=== PATIENT | male | born 1945 | race Caucasian/White ===

== ENCOUNTER 2018-07-22 21:54 | Inpatient (IN) | payer OTHER ==
[2018-07-22] MEDS ORDERED: NS 1,000 ML IV ONE (22:36)
--- NOTE | 2018-07-22 22:36 | EDPHY ---
H & P Stated Complaint: near syncope while squatting on toilet. BGL 91 Time Seen by Provider: 07/22/18 22:35 HPI/ROS: HPI CHIEF COMPLAINT: Syncope HISTORY OF PRESENT ILLNESS: Patient is a 73-year-old male, who states that he is otherwise healthy, does not take any daily medications presents to the emergency room by EMS after he had a syncopal episode. Patient states he just got out of the shower he was standing there felt very lightheaded felt like he was going to pass out. He sat down on a stool and then fell backwards. Possibly fully passing out. He denies any chest pain or shortness of breath denies palpitations. Does complain of global weakness throughout. Past Medical History: BPH, longstanding history of smoking 1-3 packs per day for 50 years. Currently does not smoke. Past Surgical History: Tonsillectomy Social History: longstanding history of smoking 1-3 packs per day for 50 years. Currently does not smoke. Family History: Noncontributory ROS REVIEW OF SYSTEMS: 10 Systems were reviewed and negative with the exception of the elements mentioned in the history of present illness. Exam Constitutional elderly, nontoxic triage nursing summary reviewed, vital signs reviewed, awake/alert. Vital signs stable Eyes normal conjunctivae and sclera, EOMI, PERRLA. HENT normal inspection, atraumatic, moist mucus membranes, no epistaxis, neck supple/ no meningismus, no raccoon eyes. Respiratory clear to auscultation bilaterally, normal breath sounds, no respiratory distress, no wheezing. Cardiovascular rate normal, regular rhythm, no murmur, no edema, distal pulses normal. Gastrointestinal soft, non-tender, no rebound, no guarding, normal bowel sounds, no distension, no pulsatile mass. Genitourinary no CVA tenderness. Musculoskeletal no midline vertebral tenderness, full range of motion, no calf swelling, no tenderness of extremities, no meningismus, good pulses, neurovascularly intact. Skin pink, warm, & dry, no rash, skin atraumatic. Neurologic awake, alert and oriented x 3, AAOx3, moves all 4 extremities equally, motor intact, sensory intact, CN II-XII intact, normal cerebellar, normal vision, normal speech. Psychiatric normal mood/affect. Heme/Lymph/Immune no lymphadenopathy. Differential Diagnosis: Differential diagnosis includes but is not limited to: Vasovagal syncope, cardiac arrhythmia, orthostatic syncope, dehydration ACS, atypical chest pain, pneumothorax, pneumonia, pulmonary embolism, aortic dissection, congestive heart failure, tumor, musculoskeletal pain, esophageal pain, GERD, peptic ulcer disease, pancreatitis Medical Decision Making: Plan for this patient IV establishment IV fluid bolus , basic labs, EKG, case monitor, IV fluid bolus, and re-evaluate. Re-evaluation: EKG interpretation by me on record in [employer] system. Impression time of EKG 2207, normal sinus rhythm rate of [address] left [address] minimal ST depression lateral leads V4 V5 V6. No ST elevation. No old EKG to compare this to. The patient's labs reviewed shows anemia, additionally elevated BNP. Negative troponin. Patient's EKG is abnormal with ST depression V4 V5 V6. Chest x-ray reviewed no acute cardiopulmonary disease. Given the patient's age, anemia, abnormal EKG plan for hospital admission for syncope. Spoke with the hospitalist service they agree to admit Dr. Spears, Agrees to admit. Admit for Syncope. Patient updated agrees for admission. ADMIT FOR: Syncope, anemia, abnormal ekg. 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 - Social History Smoking Status: Former smoker Constitutional: Initial Vital Signs Temperature (C) 36.8 C 07/22/18 22:03 Heart Rate 98 07/22/18 22:03 Respiratory Rate 12 07/22/18 22:03 Blood Pressure 141/97 H 07/22/18 22:03 O2 Sat (%) 97 07/22/18 22:03 O2 Delivery Mode Room Air O2 (L/minute) 2 Allergies/Adverse Reactions: No Known Allergies Allergy (Verified 07/23/18 09:49) Home Medications: Medication Instructions Recorded Acetaminophen [Tylenol 325mg (*)] 325 mg PO Q6 PRN 07/23/18 Aspercreme With Lidocaine 4% 1 chuck TP TID 07/23/18 Aspirin [Aspirin 325 mg (*)] 325 mg PO DAILY PRN 07/23/18 Aspirin [Aspirin 81mg (*)] 81 mg PO DAILY 07/23/18 Ibuprofen [Motrin (*)] 200 mg PO DAILY PRN 07/23/18 Ranitidine HCl [Zantac] 150 mg PO DAILY 07/23/18 Medical Decision Making - Data Points Laboratory Results: Laboratory Results 07/24/18 03:30 07/24/18 03:30 Medications Given: Acetaminophen (Tylenol) 650 mg PO Q4HRS PRN PRN Reason: Pain, Mild/Fever, Can Take PO Stop: 01/19/19 00:33 Last Admin: 07/24/18 04:45 Dose: 650 mg Hydrocodone Bitart/Acetaminophen ([place] 5/325) 1 - 2 tab PO Q4HRS PRN PRN Reason: Pain, Moderate Stop: 08/03/18 10:29 Last Admin: 07/24/18 22:44 Dose: 1 tab Aspirin (Aspirin) 81 mg PO DAILY [facility] Stop: 01/20/19 08:59 Last Admin: 07/25/18 10:26 Dose: 81 mg Enoxaparin Sodium (Lovenox) 40 mg SC DAILY [facility] Stop: 01/19/19 08:59 Last Admin: 07/25/18 10:26 Dose: 40 mg Famotidine (Pepcid) 20 mg PO DAILY [facility] Stop: 01/20/19 08:59 Last Admin: 07/25/18 10:26 Dose: 20 mg Ferrous Sulfate (Ferrous Sulfate) 325 mg PO BID [facility] Stop: 01/20/19 08:59 Last Admin: 07/24/18 13:30 Dose: 325 mg Miscellaneous Medication (Aspercreme With Lidocaine 4% ) 1 chuck TP TID [facility] Stop: 01/19/19 21:59 Last Admin: 07/25/18 16:00 Dose: 1 chuck Senna/Docusate Sodium (Senokot-S) 1 - 2 tab PO BID [facility] PRN Reason: Protocol Stop: 01/19/19 20:59 Last Admin: 07/25/18 10:28 Dose: Not Given Discontinued Medications Aspirin Buffered (Aspirin Ec) 325 mg PO ONCALL ONE Stop: 07/24/18 06:01 Last Admin: 07/24/18 08:53 Dose: 325 mg Diazepam (Valium) 5 mg PO ONCALL ONE Stop: 07/24/18 06:01 Last Admin: 07/24/18 08:54 Dose: 5 mg Diphenhydramine HCl (Benadryl) 25 mg PO ONCALL ONE Stop: 07/24/18 06:01 Last Admin: 07/24/18 08:54 Dose: 25 mg Sodium Chloride (Ns) 1,000 mls @ 0 mls/hr IV EDNOW ONE; Wide Open PRN Reason: Protocol Stop: 07/22/18 22:37 Last Admin: 07/22/18 22:51 Dose: 1,000 mls Polyethylene Glycol/Electrolytes (Gavilyte - G) 4,000 ml PO ONCE ONE Stop: 07/25/18 17:01 Last Admin: 07/25/18 17:00 Dose: 4,000 ml Point of Care Test Results: Chemistry 07/22/18 22:32 POC Troponin I 0.01 ng/mL ng/mL (0.00-0.08) Departure - Departure Disposition: [facility] Inpatient Acute Clinical Impression: Abnormal EKG Syncope Qualifiers: Syncope type: vasovagal syncope Qualified Code(s): R55 - Syncope and collapse Anemia Qualifiers: Anemia type: unspecified type Qualified Code(s): D64.9 - Anemia, unspecified Condition: Fair
[2018-07-22 22:37] LABS: PLATELET COUNT 425 10^3/uL (150-400)
[2018-07-22 22:46] LABS: INR 1.16 (0.83-1.16); PROTIME(PATIENT) 14.3 SEC (12.0-15.0)
[2018-07-23] MEDS ORDERED: ONDANSETRON DISINTEGRATING 4 MG TAB PO PRN (00:34)
[2018-07-23] MEDS ORDERED: ONDANSETRON 4 MG/2 ML VIAL IVP PRN (00:34)
[2018-07-23] MEDS: ACETAMINOPHEN 325 MG TAB PO PRN ×4 (01:15→19:30)
--- NOTE | 2018-07-23 03:24 | PDGENHP ---
History and Physical - Chief Complaint Presyncope - History of Present Illness 73 yo M w/ minimal PMHx presents after pre-syncopal event. The patient got out of the shower and went into his closet. He felt lightheaded and had to go down to one knee. His check his blood pressure and noted systolic in the 60s so she called EMS. His SBP recovered to the 110s by the time EMS arrived 20 minutes later. He denies chest pain, SOB, or palpitations accompanying the event. He tells me he has had a sore throat for a few days. In addition, he has recently gotten over a severe bout of constipation with the help of Miralax. He does not take any medications on a regular basis. In the ED his work-up has been mostly unremarkable aside from markedly elevated BNP without clinical findings of heart failure and microcytic anemia. Case discussed with ED physician Dr. Elizalde; records reviewed and summarized above. History Information - Allergies/Home Medication List Allergies/Adverse Reactions: No Known Allergies Allergy (Unverified 07/23/18 00:34) I have personally reviewed and updated: family history, medical history - Past Medical History no pertinent PMH - Surgical History Additional surgical history: Tonsillectomy - Family History Positive for: cancer Additional family history: Parkinson's disease in his father - Social History Smoking Status: Former smoker Review of Systems Review of Systems: ROS: 10pt was reviewed & negative except for what was stated in HPI & below Physical Exam Physical Exam: Temp Pulse Resp BP Pulse Ox 36.8 C 109 H 13 151/95 H 83 L 07/23/18 01:41 07/23/18 01:41 07/23/18 01:41 07/23/18 01:41 07/23/18 02:53 Constitutional: no apparent distress, not in pain Eyes: PERRL, EOMI Ears, Nose, Mouth, Throat: moist mucous membranes, no oral mucosal ulcers Cardiovascular: regular rate and rhythym, systolic murmur Respiratory: no respiratory distress, clear to auscultation Gastrointestinal: normoactive bowel sounds, soft, non-tender abdomen Skin: warm, normal color Musculoskeletal: full muscle strength, no muscle tenderness Neurologic: AAOx3, CN II-XII Intact Psychiatric: interacting appropriately, not anxious Lab Data & Imaging Review 07/22/18 22:27 07/22/18 22:27 WBC 11.27 10^3/uL (3.80-9.50) H 07/22/18: RBC 4.13 10^6/uL (4.40-6.38) L 07/22/18: Hgb 9.7 g/dL (13.7-17.5) L 07/22/18: Hct 31.7 % (40.0-51.0) L 07/22/18: MCV 76.8 fL (81.5-99.8) L 07/22/18: MCH 23.5 pg (27.9-34.1) L 07/22/18: MCHC 30.6 g/dL (32.4-36.7) L 07/22/18: RDW 18.7 % (11.5-15.2) H 07/22/18: Plt Count 425 10^3/uL (150-400) H 07/22/18: MPV 9.7 fL (8.7-11.7) 07/22/18: Neut % (Auto) 81.6 % (39.3-74.2) H 07/22/18: Lymph % (Auto) 8.0 % (15.0-45.0) L 07/22/18: [place] % (Auto) 7.4 % (4.5-13.0) 07/22/18: Eos % (Auto) 2.1 % (0.6-7.6) 07/22/18: Baso % (Auto) 0.4 % (0.3-1.7) 07/22/18: Nucleat RBC Rel Count 0.0 % (0.0-0.2) 07/22/18: Absolute Neuts (auto) 9.19 10^3/uL (1.70-6.50) H 07/22/18: Absolute Lymphs (auto) 0.90 10^3/uL (1.00-3.00) L 07/22/18: Absolute Monos (auto) 0.83 10^3/uL (0.30-0.80) H 03/10/19 22:27 Absolute Eos (auto) 0.24 10^3/uL (0.03-0.40) 07/22/18 22: Absolute Basos (auto) 0.05 10^3/uL (0.02-0.10) 07/22/18 22: Absolute Nucleated RBC 0.00 10^3/uL (0-0.01) 07/22/18 22: Immature Gran % 0.5 % (0.0-1.1) 07/22/18: Immature Gran # 0.06 10^3/uL (0.00-0.10) 07/22/18 22: PT 14.3 SEC (12.0-15.0) 07/22/18: INR 1.16 (0.83-1.16) 07/22/18: APTT 22.9 SEC (23.0-38.0) L 07/22/18 22:27 Sodium 133 mEq/L (135-145) L 07/22/18 22:27 Potassium 4.3 mEq/L (3.5-5.2) 07/22/18 22:27 Chloride 97 mEq/L (97-110) 07/22/18 22: Carbon Dioxide 28 mEq/l (22-31) 07/22/18 22: Anion Gap 8 mEq/L (6-14) 07/22/18 22:27 BUN 15 mg/dL (7-23) 07/22/18 22:27 Creatinine 0.9 mg/dL (0.7-1.3) 07/22/18 22:27 Estimated GFR > 60 07/22/18 22:27 Glucose 106 mg/dL (70-100) H 07/22/18 22:27 Calcium 8.7 mg/dL (8.5-10.4) 07/22/18 22: Magnesium 2.3 mg/dL (1.6-2.3) 07/22/18 22:27 POC Troponin I 0.01 ng/mL (0.00-0.08) 07/22/18 22:32 NT-Pro-B Natriuret Pep 9840 pg/mL (0-450) H 07/22/18 22:27 Urine Color YELLOW 07/22/18 23:21 Urine Appearance HAZY 07/22/18 23:21 Urine pH 8.0 (5.0-7.5) H 07/22/18 23:21 Ur Specific [place] 1.009 (1.002-1.030) 07/22/18 23:21 Urine Protein NEGATIVE (NEGATIVE) 07/22/18 23:21 Urine Ketones NEGATIVE (NEGATIVE) 07/22/18 23:21 Urine Blood NEGATIVE (NEGATIVE) 07/22/18 23:21 Urine Nitrate NEGATIVE (NEGATIVE) 07/22/18 23:21 Urine Bilirubin NEGATIVE (NEGATIVE) 07/22/18 23:21 Urine Urobilinogen NEGATIVE EU (0.2-1.0) 07/22/18 23:21 Ur Leukocyte Esterase NEGATIVE (NEGATIVE) 07/22/18 23:21 Urine Glucose NEGATIVE (NEGATIVE) 07/22/18 23:21 Imaging Review: Imaging Impressions Chest X-Ray 07/22/18 22:36 Impression: Nothing acute identified. Visualized and Interpreted EKG results: Yes EKG Interpretation: Positive for: normal sinsus rhythm, ST depression (Lateral leads) Assessment & Plan Assessment: 73 yo M w/ minimal PMHx presents after presyncopal event, found to be anemic w/ elevated BNP. Plan: 1. Presyncope - Patient denies true LOC; SBP noted to be in the 60s by during episode. It is possible dehydration and anemia are contributing. In addition, he has had a sore throat the last few days, making viral infection a possibility. His BNP is markedly elevated but he does not appear clinically volume overloaded. - Admit to PCU for observation - Check orthostatic VS - S/p 1 L NS - Monitor on telemetry - Will check TTE noting elevated BNP - Respiratory PCR ordered 2. Elevated BNP - With no prior available for comparison. - TTE ordered 3. Microcytic anemia - Unclear chronicity, patient denies signs of bleeding. - Will check ferritin - May need GI evaluation for colonoscopy as an outpatient Diet - Regular Code - Full Ppx - LMWH Dispo - Admit under observation status
[2018-07-23 04:20] LABS: PLATELET COUNT 388 10^3/uL (150-400)
--- NOTE | 2018-07-23 09:39 | ASMTCMCOM ---
CM Note CM Note Notes: Patient admitted for syncopal episode (no LOC) and hypotension. He has been c/o a sore throat lately, not excluding the possibility of a viral infection. He will be monitored on tele and a TTE checked. He is normaly independent, lives with . No therapies ordered, and I don't anticipate any needs at d/c. Case Management available if this changes. Current CM Discharge plan: independent Date Signed: 07/23/2018 09:38 AM Electronically Signed By:Rachana Maurice RN
[2018-07-23] MEDS: ENOXAPARIN 40 MG/0.4 ML SYR SC SCH (09:47)
--- NOTE | 2018-07-23 11:04 | ECHO ---
[email or web address] [address] [address] Main: [phone] Echocardiography Examination Transthoracic Name: BARBARA VARELA MR#: [id number] Study Date: 07/23/2018 Study Time: 08:06 AM Date of : 1945 Age: 73 year(s) Height: 172.7 cm (68 in.) Weight: 63.5 kg (140 lb.) BSA: 1.76 m2 Gender: Male Examination: Echo Contrast: Image Quality: Adequate Rhythm: Heart Rate: BP: 144 mmHg/85 mmHg Indication: Syncope/elevated BNP Procedure Staff Referring Physician: Tower Cleaner: Ita Zamarripa RDCS Reading Physician: Christiano Ryan MD Requesting Provider: Indication: Syncope/elevated BNP Measurements Chambers AV/MV Label Value Normal Value Label Value Normal Value EF lower range (%) 35 % AV PGmax 3 mmHg EF upper range (%) 42 % AV PGmean 1 mmHg IVSd, 2D 0.6 cm (0.6cm - 1.1cm) AV Vmax, Caliper 0.8 m/s LVDd, 2D 6 cm (4.2cm - 5.9cm) MR Vena Contracta 0.3 cm LVDs, 2D 4.9 cm (2.1cm - 4cm) MV A Vmax 0.76 m/s LVEF, 2D 36 % (54% - 74%) MV E' lateral 0.07 m/s LVEF, BP 41 % (55% - 70%) MV E' mean 0.07 m/s LVEF, MOD2 45 % (55% - 70%) MV E' septal 0.07 m/s LVEF, MOD4 37 % (55% - 70%) MV E Vmax 0.65 m/s LVOTd 1.9 cm (1.9cm - 2.1cm) MV E/A 0.86 LVPWd, 2D 0.6 cm (0.6cm - 1cm) MV E/E' lateral 9.2 LA Area, A2C 22.1 cm2 (0cm2 - 20cm2) MV E/E' mean 9.29 LA Volume, A2C 70 ml (18ml - 58ml) MV E/E' septal 9.6 (0.45 - 1.25) LADs, 2D 4 cm (3cm - 4cm) TV/PV Additional Vessels Label Value Normal Value Label Value Normal Value RA Pressure 5 mmHg AoAsc 3.6 cm RVSP 36 mmHg AoRoot, MM 3.7 cm (2.2cm - 3.7cm) TR Pmax 31 mmHg TR Vmax 2.8 m/s Patient: BARBARA VARELA Study Date: 07/23/2018 Page 1 of 3 08:06 AM Conclusions The patient has changes consistent with an ischemic cariiomyopathy and reduced ejection fraction. A comparison echocardiogram is not on the [employer] system. A definite cause for the patient's syncope is not identified but ventricular tachydysrhythmia should be considered in the differential. LV anterior/inferoseptal and inferolateral appear akinetic. . Left Ventricle: Diastolic dysfunction is indeterminate.. Left ventricle is mildly dilated. EF range is estimated at 35 % - 42 %. Right Ventricle: Normal size right ventricle. Right ventricular systolic function is normal. Mitral Valve: Mild to moderate mitral regurgitation. Aortic Valve: There is no aortic stenosis. The aortic valve is trileaflet. Findings LV anterior/inferoseptal and inferolateral appear akinetic. . Left Ventricle: Diastolic dysfunction is indeterminate.. Left ventricle is mildly dilated. The ejection fraction, measured by Simpsons method, is 41 %. EF range is estimated at 35 % - 42 %. Left ventricle wall thickness is normal. IVS: The septum is intact. Right Ventricle: Normal size right ventricle. Right ventricular wall thickness is normal. Right ventricular systolic function is normal. Left Atrium: The left atrium is moderately dilated. IAS: Normal appearing atrial septum. Right Atrium: The right atrium is mildly dilated. Mitral Valve: Mitral valve appears structurally normal. Mild to moderate mitral regurgitation. No mitral valve stenosis. Aortic Valve: Aortic leaflets exhibit normal cuspal separation. No aortic valve regurgitation. There is no aortic stenosis. The aortic valve is trileaflet. Tricuspid Valve: Tricuspid valve leaflets are normal in appearance and function. Mild tricuspid regurgitation. No tricuspid valve stenosis. Right Ventricular systolic pressure is measured at 36 mmHg. Pulmonary artery pressure normal. Pulmonic Valve: Pulmonic leaflets exhibit normal cuspal separation. Trivial pulmonic valve regurgitation is present. There is no pulmonic valve stenosis. Aorta: The aorta is normal. The aortic root size in M-mode measures 3.7 cm. The ascending aorta measures 3.6 cm. Aorta Measurements AoRoot, MM is 3.7 cm. Pulmonary Artery: The pulmonary artery morphology appears normal. IVC: Patient: BARBARA VARELA Study Date: 07/23/2018 Page 2 of 3 08:06 AM The inferior vena cava is normal in size and course. Pericardium: No pericardial effusion. No pleural effusion present. Exam Details Procedure Ordered: Echo Procedure Status: Routine study Image Quality: Adequate Facility Location: Cardiac Echo 1 (No Signature Object) Patient: BARBARA VARELA Study Date: 07/23/2018 Page 3 of 3 08:06 AM [id number]
[2018-07-23] MEDS ORDERED: LACTULOSE 20 GM/30 ML UDCUP PO PRN (13:31)
[2018-07-23] MEDS ORDERED: MAGNESIUM HYDROXIDE 30 ML UDCUP PO PRN (13:31)
[2018-07-23] MEDS ORDERED: BISACODYL 10 MG SUPP PR PRN (13:31)
[2018-07-23] MEDS ORDERED: POLYETHYLENE GLYCOL 3350 17 GM PKT PO PRN (13:31)
--- NOTE | 2018-07-23 15:45 | HOSPPROG ---
Hospitalist Progress Note Assessment/Plan: 73 yo M w/ minimal PMHx presents after presyncopal event, found to be anemic w/ elevated BNP. Plan: 1. Presyncope - Patient denies true LOC; SBP noted to be in the 60s by during episode. It is possible dehydration and anemia are contributing. In addition, he has had a sore throat the last few days, making viral infection a possibility. His BNP is markedly elevated but he does not appear clinically volume overloaded. - Orthostatic VS this AM with no significant changes, this was s/p IVF though - Continue Monitor on telemetry - TTE performed today shows findings c/w ICM with LV anterior/inferoseptal akinesis - Cardiology consulted this AM for further evaluation and management, would like to w/u anemia prior to [facility], awiat further recommendations - Respiratory PCR negative on admission 2. Ischemic Cardiology - TTE and plan as above 3. Microcytic anemia - Unclear chronicity, patient denies signs of bleeding. - Ferritin low normal on admission, Iron and TIBC pending - Stool occult blood pending, if positive will consult GI for possible colonoscopy Diet - Regular Code - Full Ppx - LMWH Dispo - Pending clinical course Subjective: Patient reports no complaints this AM Objective: Vital Signs Temp Pulse Resp BP Pulse Ox 36.7 C 84 14 117/73 94 07/23/18 15:22 07/23/18 15:22 07/23/18 15:22 07/23/18 15:22 07/23/18 15:22 Microbiology 07/23/18 01:25 Respiratory Panel (PCR) - Final Nasal, Sinus - Tissue No Organism Detected By Pcr Laboratory Results 07/23/18 03:10 07/23/18 03:10 07/22/18 07/23/18 07/24/18 05:59 05:59 05:59 Intake Total 1250 200 Output Total 325 Balance 1250 -125 PT 14.3 SEC (12.0-15.0) 07/22/18 22:27 INR 1.16 (0.83-1.16) 07/22/18 22:27 - Physical Exam Constitutional: no apparent distress Eyes: PERRL Ears, Nose, Mouth, Throat: moist mucous membranes Cardiovascular: regular rate and rhythym Respiratory: no respiratory distress Gastrointestinal: soft, non-tender abdomen Skin: warm Musculoskeletal: full muscle strength Neurologic: AAOx3 Psychiatric: interacting appropriately ICD10 Worksheet Patient Problems: Problems Problem Status Onset Anemia Acute Syncope Acute
[2018-07-23] MEDS ORDERED: NITROGLYCERIN 0.4 MG BTL SL PRN (16:22)
[2018-07-23] MEDS ORDERED: TEMAZEPAM 15 MG CAP PO PRN (16:22)
--- NOTE | 2018-07-23 18:09 | GCON ---
[f rep st] CONSULTATION CARDIAC CONSULTATION DATE OF CONSULTATION: 07/23/2018 CHIEF COMPLAINT: Lightheadedness. HISTORY OF PRESENT ILLNESS: The patient is a 73-year-old male who has not had any medical care in at least 10 years who presented to the hospital with presyncope. He had just taken a hot shower and was able to get out and get clothed. He then bent over to grab something off the floor and became lightheaded. He fell to the floor, but denies losing consciousness. His was present and noted that he was aware of his surroundings immediately after the event. She took his blood pressure and noted systolic blood pressures in the 60s. On admission to the hospital. His pressure has improved and is now running in the 140s. He denies any palpitations, chest discomfort, or shortness of breath with this event. He is a very active individual and has noted that he has been more fatigued over the last 2 months. On admission to the hospital, he was anemic with a hemoglobin of 9.7, hematocrit of 31.7. He also had an echocardiogram, which showed a new ischemic cardiomyopathy with an ejection fraction of 35% to 42%. He has anterior, inferior, septal, and inferior lateral akinesis. His EKG shows nonspecific ST- T wave changes. Over the past week, he has been constipated and been on a liquid diet. He just recently had a bowel movement. He denies any bright red blood in his stool or melena. PAST MEDICAL HISTORY: None. PAST SURGICAL HISTORY: None. FAMILY HISTORY: Denies any family history of premature coronary artery disease. SOCIAL HISTORY: He is currently accompanied by his . 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 HOME MEDICATIONS: Aspirin 81 mg daily, Zantac 150 mg daily. ALLERGIES: No known drug allergies. REVIEW OF SYSTEMS: A 12-point review of systems is negative, except for what is stated in the H and P. PHYSICAL EXAMINATION: GENERAL: Patient appears in no acute distress. VITALS: Blood pressure 145/85, heart rate 102, oxygen saturation 94% on room air afebrile. HEENT: Within normal limits. NECK: No carotid bruits or JVD present. LUNGS: Clear to auscultation. No wheezes, rhonchi, or crackles auscultated. CARDIAC: Regular rate and rhythm, without any significant murmurs , rubs, or gallops appreciated. ABDOMEN: Soft, nontender, mildly distended with bowel sounds present. EXTREMITIES: Palpable pulses bilaterally without any evidence of edema. SKIN: No obvious rashes or ecchymosis identified. NEUROLOGIC: Nonfocal. PSYCHIATRIC: Mood and affect appropriate. LABORATORY DATA: WBC 11, hemoglobin 8.7, hematocrit 27.9, platelets 388. Sodium 133, potassium 3.8, chloride 104, bicarb 25, BUN 13, creatinine 0.9. Ferritin 69. BNP 9,840. Troponin negative x1. DIAGNOSTIC STUDIES: Echocardiogram revealed ejection fraction of 35% to 42% with anterior inferior septal and inferior lateral akinesis. EKG showed normal sinus rhythm with minimal ST depression in the anterior and lateral leads. Chest x-ray was negative for acute cardiopulmonary disease. ASSESSMENT: The patient is a 73-year-old male who presents with a new ischemic cardiomyopathy and anemia. PLAN: Patient's initial presentation of presyncope is likely related to low blood volume in the setting of anemia and orthostatic type symptoms. Upon further evaluation, he was found to have a new ischemic cardiomyopathy with an ejection fraction of 35% to 42%. He has new wall motion abnormality consistent with ischemic heart disease. He denies any symptoms suggestive of angina, except for fatigue. His EKG is also abnormal with ST depression in the anterior and lateral leads. Treatment options were discussed with him today, including medical therapy versus nuclear stress test and angiogram. Ultimately , I think it is important to understand why he has a new cardiomyopathy and have recommended an angiogram. He is scheduled for a diagnostic angiogram tomorrow morning with Dr. Ryan. On admission, he was found to be anemic and is complaining of constipation. He denies any melena or bright red blood per rectum. I do think he is going to need further assessment with a colonoscopy. Dr. Ryan was involved in the patient's care and plan today. /[id number]/MODL MTDD
[2018-07-23] MEDS: SENNOSIDES/DOCUSATE SODIUM TAB PO SCH (20:17)
[2018-07-23] MEDS ORDERED: TROLAMINE SALICYLATE 85 GM CRTUBE TP SCH (22:00)
[2018-07-24 04:26] LABS: PLATELET COUNT 390 10^3/uL (150-400)
[2018-07-24 04:32] LABS: INR 1.2 (0.83-1.16); PROTIME(PATIENT) 14.7 SEC (12.0-15.0)
[2018-07-24] MEDS: ACETAMINOPHEN 325 MG TAB PO PRN (04:45)
[2018-07-24] MEDS ORDERED: DIAZEPAM 5 MG TAB PO ONE (06:00)
[2018-07-24] MEDS ORDERED: diphenhydrAMINE 25 MG CAP PO ONE ×2 (06:00→08:49)
[2018-07-24] MEDS ORDERED: ASPIRIN EC 325 MG TAB PO ONE (06:00)
[2018-07-24] MEDS ORDERED: ASPIRIN 325 MG TAB ONE (08:50)
[2018-07-24] MEDS ORDERED: DIAZEPAM 5 MG TAB ONE (08:50)
[2018-07-24] MEDS ORDERED: MIDAZOLAM 2 MG/2 ML VIAL ONE (09:05)
[2018-07-24] MEDS ORDERED: fentaNYL 100 MCG/2 ML INJ ONE (09:05)
[2018-07-24] MEDS ORDERED: HEPARIN 10,000 UNIT/10 ML MDV (1,000 UNIT/ML) ONE (09:05)
[2018-07-24] MEDS ORDERED: VERAPAMIL 5 MG/2 ML VIAL ONE (09:05)
[2018-07-24] MEDS ORDERED: LIDOCAINE 1% 300 MG/30 ML SDV ONE (09:05)
[2018-07-24] MEDS ORDERED: IOPAMIDOL (ISOVUE-370) 150 ML BTL IV ONE (09:05)
--- NOTE | 2018-07-24 09:30 | PDHPUP ---
History & Physical Update H&P update statement: This history and physical update is based on an assessment of the patient which was completed after admission or registration (within 24 hours), but prior to the surgery/procedure. H&P update: H&P reviewed & patient examined, no change in patient's condition since H&P completed
--- NOTE | 2018-07-24 09:30 | PDPROPOC ---
Sedation Plan of Care Sedation Plan of Care: vital signs stable, mental status noted, patient educated of risks, benefits, alternatives, patient can tolerate sedation ASA Classification: ASA 3 Planned drugs: fentanyl, midazolam Mallampati Score: Class 2 Mallampati Reference Image: Patient passed 3-3-2 rule?: Yes
--- NOTE | 2018-07-24 10:15 | PDDXCAT ---
Diagnostic Cath Note - . Date: 07/24/18 Bottle Cleaner: Shelby Indication: other (ischemic cardiomyopathy) - Procedure Access: left wrist Procedure: left heart catheterization, coronary angiography, left ventriculogram - Materials Left Heart Cath size: 5F Left Heart Cath materials: JL3.5, JR4.0, pigtail - Findings-Left Heart Catheterization LM: The left main is 4mm in size and bifurcates into a LAD and Circumflex system. There is LILIANE III flow throughout. LAD: The left anterior descending is 2.5mm and gives rise to an important diagonal branch. There is a 40% lesion at the ostium of the diagonal. LCX: The left circumflex is 2.5mm in size and is totally obstructed after the proximal segment of the vessel. RCA: The right coronary artery is 3mm and dominant. The vessel gives rise to a PDA and PLV branch. There are right to left collaterals from the RCA to the distal circumflex. EDP: 27mmHg LVEF: 35% Wall motion: On the LV gram there is decreased LV systolic function. The EF is 35%. There is anterior wall hypokinesis ad mid inferior wall hypokinesis consistent with ischemic cardiomyopathy. There is 2+ mitral regurgitation on pressurized injection. The visualized portion of the thoracic aortic valve reveals three sinuses of valsalva most consistent with a trileaflet valve. There is no gradient on pullback across the aortic valve. There is no evidence of kenia dissection or aneurysm formation of the thoracic aorta. - Findings-Right Heart Catheterization AO: 150/80/155 Complications: NONE Estimated blood loss: <50ml Closure method: TR Band Assessment: The patient has [place] vessel coronary disease. The right coronary system is dominant with right to left collaterals from the RCA to the distal circumflex. The patient's left circumflex is totally occluded. The left anterior descending artery has luminal irregularities consistent with atherosclerosis. On pressurized injection there is 2+ mitral regurgitation and wall motion abnormalities consistent with ischemic cardiomyopathy. Plan: The patient is anemic and will proceed with scheduled colonoscopy for further evaluation of his microcytic anemia. I would like to follow up with the patient after the procedure has been completed to determine if the patient will be able to proceed with an intervention. Once the cause of the patients anemia is identified and dealt with I think the patient would benefit from coronary intervention to improve the circulation to the posterior wall of his heart. This should help to improve his ejection fraction over time. Intervention: NONE Patient Problems: Problems Problem Status Onset Syncope Acute Anemia Acute
[2018-07-24] MEDS ORDERED: ATROPINE SULFATE 1 MG/10 ML SYR IVP PRN (10:30)
[2018-07-24] MEDS ORDERED: OXYCODONE/APAP 5/325 TAB PO PRN (10:30)
[2018-07-24] MEDS: HYDROCODONE/APAP 5/325 TAB PO PRN ×3 (13:30→22:44)
[2018-07-24] MEDS: ENOXAPARIN 40 MG/0.4 ML SYR SC SCH (13:30)
[2018-07-24] MEDS: FERROUS SULFATE 325 MG TAB PO SCH (13:30)
[2018-07-24] MEDS: SENNOSIDES/DOCUSATE SODIUM TAB PO SCH ×2 (13:31→21:10)
[2018-07-24] MEDS: FAMOTIDINE 20 MG TAB PO SCH (13:31)
[2018-07-24] MEDS: ASPIRIN 81 MG CHEWABLE TAB PO SCH (13:34)
--- NOTE | 2018-07-24 15:49 | HOSPPROG ---
Hospitalist Progress Note Assessment/Plan: 73 yo M w/ minimal PMHx presents after presyncopal event, found to be anemic w/ elevated BNP. Plan: 1. Presyncope - Patient denies true LOC; SBP noted to be in the 60s by during episode - Orthostatic VS this AM with no significant changes - Continue Monitor on telemetry - TTE performed on 07/23 showed findings c/w ICM with LV anterior/inferoseptal akinesis - Cardiology consulted as below - Respiratory PCR negative on admission 2. Ischemic Cardiology - TTE as above - LHC performed this AM which showed resighini CAD with totally occluded L circumflex, cardiology would like to intervene however would like a EGD/ colonoscopy prior to placing patient on anticoagulants 3. Microcytic anemia - Unclear chronicity, patient denies signs of bleeding. - Ferritin low normal on admission, Iron low with low TIBC as well indicating likely mixed Anemia of Chronic Disease and Iron Deficiency anemia - Stool occult blood negative yesterday - Will consult GI this afternoon for colonoscopy/EGD, discussed with Dr. Agarwal , will plan on CLD tomorrow with bowel prep and EGD/Colon on Diet - Regular Code - Full Ppx - LMWH Dispo - Pending clinical course Subjective: Patient reports no complaints this AM Objective: Vital Signs Temp Pulse Resp BP Pulse Ox 36.5 C 87 20 136/87 H 90 L 07/24/18 12:00 07/24/18 15:13 07/24/18 15:13 07/24/18 15:13 07/24/18 15:13 Laboratory Results 07/24/18 03:30 07/24/18 03:30 07/23/18 07/24/18 07/25/18 05:59 05:59 05:59 Intake Total 1250 740 Output Total 325 Balance 1250 415 PT 14.7 SEC (12.0-15.0) 07/24/18 03:30 INR 1.20 (0.83-1.16) H 07/24/18 03:30 - Physical Exam Constitutional: no apparent distress Eyes: PERRL Ears, Nose, Mouth, Throat: moist mucous membranes Cardiovascular: tachycardia Respiratory: no respiratory distress Gastrointestinal: soft, non-tender abdomen Skin: warm Neurologic: AAOx3 Psychiatric: interacting appropriately ICD10 Worksheet Patient Problems: Problems Problem Status Onset Anemia Acute Syncope Acute
--- NOTE | 2018-07-24 21:27 | SOAPPROG ---
SOAP Progress Note Assessment/Plan: Assessment:Plan: see full dictated consult to follow 73 y/o male with iron def anemia, CAD that needs intervention some narrowing of stool caliber, occ gerd sx's needs EGD and Colon will prep tomorrow for am with anesthesia Mihai Agarwal MD [phone] 07/24/18 21:26 Objective: Vital Signs Temp Pulse Resp BP Pulse Ox 36.7 C 106 H 18 144/94 H 94 07/24/18 20:00 07/24/18 20:00 07/24/18 20:00 07/24/18 20:00 07/24/18 20:00 Laboratory Results 07/24/18 03:30 07/24/18 03:30 07/23/18 07/24/18 07/25/18 05:59 05:59 05:59 Intake Total 1250 740 Output Total 325 300 Balance 1250 415 -300 PT 14.7 SEC (12.0-15.0) 07/24/18 03:30 INR 1.20 (0.83-1.16) H 07/24/18 03:30 ICD10 Worksheet Patient Problems: Problems Problem Status Onset Anemia Acute Syncope Acute
--- NOTE | 2018-07-24 21:43 | PDMN ---
Medical Necessity Medical necessity: Change to inpt as of 07/24/18 @ 17:37, pt meets inpt criteria per MD order and MCG M-35, Anemia, Iron Deficiency or Unspecified. 73 y/o admitted w/near syncope and microcytic anemia (H&H 8.7, 27.9). Cardiology consult, pt found to have new ischemic cardiomyopathy w/EF of 35%, wall motions c/w ischemic cardiomyopathy, diagnostic angiogram today revealed totally occluded L circumflex artery- will likely need intervention once anemia etiology identified and managed, GI consult, EGD/colonoscopy pending. Anticiapte >2MN for ongoing eval/management of above conditions.
--- NOTE | 2018-07-25 07:49 | GCON ---
[f rep st] CONSULTATION DATE OF CONSULTATION: 07/24/2018 REQUESTING PHYSICIAN: Dr. Ryan INDICATION FOR CONSULTATION: Iron deficiency anemia. HISTORY: I have been asked by Dr. Ryan to see the patient in consultation for chief complaint of i deborah deficiency anemia. He is a 73-year-old male who presented with presyncope and brought to the [facility] hospital room for evaluation. He was noted to have microcytic anemia and elevated BNP without clinical findings of heart failure. Cardiology was consulted for these symptoms and was noted to have ischem ic cardiomyopathy with ejection fraction of 35% to 42%. He also has wall motion abnormalities consis tent ischemic heart disease and underwent a catheterization today which revealed coronary artery dise ase that could be amenable to stenting. Because of his iron deficiency, I was called to help evaluat e that prior to any further interventions. The patient denies any significant medical history, says he has been healthy up until today. He has had some basal cell cancers. The patient does not compla in of any significant nausea, vomiting, dysphagia, odynophagia, or early satiety. He has no overt bl ood loss, although he has recognized somewhat more narrowed stools over the last number of months. Tigist mcgraw had an episode of constipation that was relieved with MiraLAX and he takes Zantac 150 mg on an as-n eeded basis. PAST MEDICAL HISTORY: None. PAST SURGICAL HISTORY: Basal cell carcinomas removed. Never had a colonoscopy. Tonsillectomy, FAMILY HISTORY: Significant for breast cancer. No colon cancer to his knowledge. SOCIAL HISTORY: He quit smoking about 5 years ago, but he does vape. He drinks alcohol infrequently . MEDICATIONS: At home include a baby aspirin and p.r.n. Zantac. In hospital include iron b.i.d., lactulose p.r.n., milk of magnesia p.r.n., morphine p.r.n., Nitrosta t p.r.n., Zofran p.r.n., Percocet p.r.n., MiraLAX p.r.n., Senokot 1 to 2 tabs p.o. b.i.d., Restoril 5 0 mg p.o. q.h.s. p.r.n. He is on Lovenox subcu, Pepcid 20 mg daily. ALLERGIES: No known drug allergies. REVIEW OF SYSTEMS: Complete review of system was performed and negative other than in the HPI. PHYSICAL EXAM: GENERAL: Well-developed, well-nourished male sitting in his bed in no acute distress . VITAL SIGNS: Blood pressure is 138/87, pulse is 94, respirations are 18. He is 92% on room air. EYES: Anicteric. BALBINA, EOMI. Mouth: No lesions. Moist mucous membranes. NECK: Supple. Full r linnea of motion. No JVD. BACK: No spine tenderness. No CVA tenderness. LUNGS: Clear to auscultat ion, although decreased breath sounds at the bases. No rhonchi or rales heard. ABDOMEN: Bowel soun ds are normal in pitch and frequency. Soft, nontender. No hepatosplenomegaly. EXTREMITIES: No cya nosis, clubbing, or edema. NEUROLOGIC: Cranial nerves intact, nonfocal. SKIN: No stigmata of adva nced liver disease. No rashes. LABORATORY DATA: From today WBC 9.51, hemoglobin 9.4, hematocrit 31.3, MCV 78.7, RDW 18.7, platelet count 390. Pro time 14.7, INR 1.20, PTT 37.5. Sodium 134, potassium 3.6, chloride 103, bicarb 27, B UN 12, creatinine 0.8, calcium 8.3, magnesium 2.2, iron saturation 8%. Stool occult blood was negati ve from the . Chest x-ray performed July 22: Lungs clear. Heart size and pulmonary vascular normal. No acute findings. ASSESSMENT: 1. Iron deficiency anemia. 2. Coronary artery disease requiring intervention. 3. Alteration in stool caliber. RECOMMENDATIONS: 1. Prep for EGD and colonoscopy. Since patient had food today, this will have to be on . I will put him on a liquid diet starting tomorrow. We will do the prep tomorrow evening. We will recommend EGD and colonoscopy at that setting with anesthesia present for the sedation. 2. Further recommendations to follow up with the above and clinical course. 3. If we find an abnormality such as colon cancer, he will need that resected although his coronary artery disease may need to be corrected before he can undergo any surgery. I do not think this is si gnificant upper GI bleed as his BUN and creatinine are normal. Thank you for allowing me to participate in your patient's healthcare. Do not hesitate to call me wi th any questions. /[id number]/MODL
[2018-07-25] MEDS ORDERED: PEG 3350/NA SULF,BICARB,CL/KCL (GAVILYTE-G) 4000 ML BTL ONE (08:06)
[2018-07-25] MEDS: FAMOTIDINE 20 MG TAB PO SCH (10:26)
[2018-07-25] MEDS: ASPIRIN 81 MG CHEWABLE TAB PO SCH (10:26)
[2018-07-25] MEDS: ENOXAPARIN 40 MG/0.4 ML SYR SC SCH (10:26)
[2018-07-25] MEDS: SENNOSIDES/DOCUSATE SODIUM TAB PO SCH ×2 (10:28→21:31)
[2018-07-25] MEDS ORDERED: PEG 3350/NA SULF,BICARB,CL/KCL (GAVILYTE-G) 4000 ML BTL PO ONE (17:00)
[2018-07-25] MEDS: HYDROCODONE/APAP 5/325 TAB PO PRN (23:08)
--- NOTE | 2018-07-26 09:24 | PDANEPAE ---
ANE History of Present Illness anemia ANE Past Medical History - Cardiovascular History Hx Hypertension: No Hx Arrhythmias: No Hx Chest Pain: No Hx Coronary Artery / Peripheral Vascular Disease: Yes Hx CHF / Valvular Disease: Yes Hx Palpitations: No Cardiovascular History Comment: EF 35-42%. CAD ammendable to stenting - Pulmonary History Hx COPD: No Hx Asthma/Reactive Airway Disease: No Hx Recent Upper Respiratory Infection: No Hx Oxygen in Use at Home: No Hx Sleep Apnea: No Sleep Apnea Screening Result - Last Documented: Negative - Endocrine History Hx Diabetes: No Hypothyroid: No Hyperthyroid: No Obesity: no - Renal History Hx Renal Disorders: No - Liver History Hx Hepatic Disorders: No - Neurological & Psychiatric Hx Hx Neurological and Psychiatric Disorders: No - Cancer History Hx Cancer: No - Congenital Disorder History Hx Congenital Disorders: No - GI History GERD: mild Hx Gastrointestinal Disorders: Yes Gastrointestinal History Comment: MILD GERD - Chronic Pain History Chronic Pain: Yes (BACK PAIN) ANE Review of Systems Review of systems is: negative Review of Systems: ANE Patient History - Allergies Allergies/Adverse Reactions: No Known Allergies Allergy (Verified 07/23/18 09:49) - Home Medications Home medications: home medication list seen and reviewed Home Medications: Acetaminophen [Tylenol 325mg (*)] 325 mg PO Q6 PRN 07/23/18 [Last Taken Unknown] Aspercreme With Lidocaine 4% 1 chuck TP TID 07/23/18 [Last Taken Unknown] Aspirin [Aspirin 325 mg (*)] 325 mg PO DAILY PRN 07/23/18 [Last Taken Unknown] Aspirin [Aspirin 81mg (*)] 81 mg PO DAILY 07/23/18 [Last Taken Unknown] Ibuprofen [Motrin (*)] 200 mg PO DAILY PRN 07/23/18 [Last Taken Unknown] Ranitidine HCl [Zantac] 150 mg PO DAILY 07/23/18 [Last Taken Unknown] - NPO status NPO Status: no food or drink >8 hours NPO Since - Liquids (Date): 07/26/18 NPO Since - Liquids (Time): 00:01 NPO Since - Solids (Date): 07/26/18 NPO Since - Solids (Time): 00:01 - Anes Hx Anes Hx: no prior problems - Smoking Hx Smoking Status: Former smoker - Alcohol Use Alcohol Use: Rarely - Family Anes Hx Family Anes Hx: none ANE Labs/Vital Signs - Labs Result Diagrams: 07/25/18 03:26 07/24/18 03:30 - Vital Signs Blood Pressure: 130/89 Heart Rate: 91 Respiratory Rate: 18 O2 Sat (%): 93 Height: 172.72 cm Weight: 63.503 kg ANE Physical Exam - Airway Neck exam: FROM Mallampati Score: Class 2 Mouth exam: normal dental/mouth exam - Pulmonary Pulmonary: no respiratory distress, clear to auscultation - Cardiovascular Cardiovascular: regular rate and rhythym, no murmur, rub, or gallop - ASA Status ASA Status: III ANE Anesthesia Plan Anesthesia Plan: GA with mask Total IV Anesthesia: Yes
[2018-07-26] MEDS ORDERED: LR 1,000 ML IV ONE (09:45)
[2018-07-26] MEDS ORDERED: LIDOCAINE 2% 2 ML INJ ONE ×2 (09:46→09:47)
[2018-07-26] MEDS ORDERED: PROPOFOL/EMULSION 500 MG/50 ML BOTTLE IV ONE (09:46)
[2018-07-26] MEDS ORDERED: ePHEDrine SULFATE 25 MG/5 ML SYR ONE (09:47)
[2018-07-26] MEDS ORDERED: NALOXONE HCL 0.4 MG/ML INJ IVP PRN (10:18)
--- NOTE | 2018-07-26 10:18 | POSTANESTH ---
Post Anesthetic Evaluation Cardiovascular Status: Normal, Stable Respiratory Status: Normal, Stable Level of Consciousness/Mental Status: Can Participate in Eval Pain Control: Adequate, Prn Tx Ordered Nausea/Vomiting Control: Adequate, Prn Tx Ordered Complications Possibly Related to Anesthesia: None Noted
--- NOTE | 2018-07-26 10:54 | GIREPORT ---
[facility] Surgical Services - Endoscopy Department Patient Name: Ramsey Newman Procedure Date: 07/26/2018 9:58 AM Patient Type: Inpatient Attending MD/ ER Physician: Mihai Agarwal MD Procedure: Upper GI endoscopy Indications: Unexplained iron deficiency anemia Providers: Mihai Agarwal MD Medicines: Propofol per Anesthesia Complications: No immediate complications. Estimated blood loss: Minimal. Description of Procedure: After obtaining informed consent, the endoscope was passed under direct vision. Throughout the procedure, the patient's blood pressure, pulse, and oxygen saturations were monitored continuously. The Endoscope was intro duced through the mouth, and advanced to the third part of duodenum. The uppe r GI endoscopy was accomplished without difficulty. The patient tolerated th e procedure well. Findings: Multiple small plaques were found in the upper third of the esophagus. Brushings for cytology were obtained in the upper third of the esophagu s. Estimated blood loss: none. Scattered mild inflammation characterized by erythema and friability wa s found in the gastric antrum. Biopsies were taken with a cold forceps fo r histology. Estimated blood loss was minimal. The examined duodenum was normal. Biopsies were taken with a cold force ps for histology. Estimated blood loss was minimal. The exam was otherwise without abnormality. Estimated Blood Loss: Estimated blood loss was minimal. Post Op Diagnosis: - Multiple plaques in the upper third of the esophagus. Brushings perfo rmed. - Gastritis. Biopsied. - Normal examined duodenum. Biopsied. - The examination was otherwise normal. Recommendation: - Await pathology results. - My office will call with the pathology result with 5-7 days. If you h ave not heard from my office by 12-14, do not assume the pathology is rina l, please call [phone] to get the pathology reults. - Perform a colonoscopy today. - Thank you for allowing me to help in your patient's care. Do not hesi bryant to call with any questions. Attending Participation: I personally performed the entire procedure. Any Echevarria M.D Mihai Agarwal MD 07/26/2018 10:54:31 AM This report has been signed electronicallyMatthew MD Any Number of Addenda: 0 Note Initiated On: 07/26/2018 9:58 AM [email or web address]
--- NOTE | 2018-07-26 11:02 | GIREPORT ---
[facility] Surgical Services - Endoscopy Department Patient Name: Ramsey Newman Procedure Date: 07/26/2018 10:13 AM Patient Type: Inpatient Attending MD/ ER Physician: Mihai Agarwal MD Procedure: Colonoscopy Indications: Unexplained iron deficiency anemia Providers: Mihai Agarwal MD Medicines: Propofol per Anesthesia + IV general with spont resps Complications: No immediate complications. Estimated blood loss: Minimal. Description of Procedure: After obtaining informed consent, the scope was passed under direct vis ion. Throughout the procedure, the patient's blood pressure, pulse, and oxyg en saturations were monitored continuously. The Colonoscope with irrigatio n channel was introduced through the anus with the intention of advancing to the ileum. The scope was advanced to the sigmoid colon before the proce dure was aborted. Medications were given. The colonoscopy was performed with out difficulty. The patient tolerated the procedure well. The Endoscope was introduced through the anus with the intention of advancing to the ileu m. The scope was advanced to the sigmoid colon before the procedure was aborted. Medications were given. The quality of the bowel preparation w as adequate. Findings: The digital rectal exam was normal. A frond-like/villous, polypoid and ulcerated partially obstructing larg e mass was found in the sigmoid colon. The mass was circumferential. In addition, its diameter measured eight mm. Oozing was present. A TTS dil ator was passed through the scope. Dilation with a 10-11-12 mm colonic ballo on dilator was performed. The dilation site was examined and showed mild improvement in luminal narrowing. Estimated blood loss was minimal. Bio psies were taken with a cold forceps for histology. Estimated blood loss was minimal. The retroflexed view of the distal rectum and anal verge was normal and showed no anal or rectal abnormalities. Estimated Blood Loss: Estimated blood loss was minimal. 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 Dilated. Biopsied. Unable to pass. - The distal rectum and anal verge are normal on retroflexion view. Recommendation: - Await pathology results. - Perform a CT scan (computed tomography) of chest with contrast, abdom en with contrast and pelvis with contrast today. - Clear liquid diet. - Refer to a surgeon today. - Return patient to hospital kitchen for ongoing care. - Repeat colonoscopy at appointment to be scheduled because the examina tion was incomplete. Few months after resection. - Thank you for allowing me to help in your patient's care. Do not hesi bryant to call with any questions. Attending Participation: I personally performed the entire procedure. Any Echevarria M.D Mihai Agarwal MD 07/26/2018 11:01:52 AM This report has been signed electronicallyMattpapo Agarwal MD Number of Addenda: 0 Note Initiated On: 07/26/2018 10:13 AM Total Procedure Duration Time 0 hours 20 minutes 7 seconds [email or web address]
--- NOTE | 2018-07-26 11:28 | SOAPPROG ---
[facility] Progress Note Assessment/Plan: Assessment: PT WITH NEARLY OBSTRUCTING SIGMOID CANCER WILL NEED RESECTION OR DIVERSION WILL DISCUSS WITH WITH CARDIOLOGY Plan:COLECTOMY WHEN OK WITH CARDS 07/26/18 11:26 Objective: Vital Signs Temp Pulse Resp BP Pulse Ox 37.6 C 109 H 18 126/85 H 93 07/26/18 11:07 07/26/18 10:55 07/26/18 10:55 07/26/18 10:55 07/26/18 11:07 Laboratory Results 07/25/18 03:26 07/25/18 07/26/18 07/27/18 05:59 05:59 05:59 Intake Total 150 800 100 Output Total 150 0 Balance 0 800 100 PT 14.7 SEC (12.0-15.0) 07/24/18 03:30 INR 1.20 (0.83-1.16) H 07/24/18 03:30 ICD10 Worksheet Patient Problems: Problems Problem Status Onset Abnormal EKG Acute Anemia Acute Syncope Acute
[2018-07-26] MEDS: HYDROCODONE/APAP 5/325 TAB PO PRN ×3 (11:43→23:24)
[2018-07-26] MEDS: FAMOTIDINE 20 MG TAB PO SCH (11:44)
[2018-07-26] MEDS: SENNOSIDES/DOCUSATE SODIUM TAB PO SCH ×2 (12:06→19:24)
[2018-07-26] MEDS: CARVEDILOL 3.125 MG TAB PO SCH ×2 (12:48→18:13)
[2018-07-26] MEDS ORDERED: IOPAMIDOL (ISOVUE-300) 100 ML BTL ONE (14:47)
--- NOTE | 2018-07-26 14:50 | PDCARPN ---
Cardiology Progress Note Chief Complaint: Presyncope Assessment/Plan: Assessment: The patient is a 73 y/o M who presented to the hospital with presyncope. He got out of the shower and bent over to pick something up when he become lightheaded. His SBP was in the 60's at this time per . On admission he was found to be anemic and a echo showed a new ICMP with EF of 35%. He had a LHC which showed a TO LCX. It was not intervened upon because the cause of his anemia was unknown. A colonoscopy yesterday showed a mass in the sigmoid colon which is obstructive and likely cancerous. Plan: The patient was discussed by Dr. Bell and Dr. Ryan. If was decided to proceed with resection of the tumor tomorrow. He is at risk for perioperative complications given his ICMP and CAD. His risk can be minimized by beginning beta sharon therapy. He will start Coreg 3.125mg BID. I do recommended tele monitoring during the procedure and post op. 07/26/18 14:51 Subjective: He is complaining of feeling anxious. He denies any CP or SOB. Reviewed/Discussed With: hospitalist Objective: Vital Signs (8 Hrs) Temp Pulse Resp BP Pulse Ox 07/26/18 13:25 36.6 C 116 H 20 151/97 H 99 07/26/18 11:47 36.6 C 92 18 139/92 H 97 07/26/18 11:07 37.6 C 93 07/26/18 10:55 109 H 18 126/85 H 96 07/26/18 10:50 109 H 19 136/88 H 99 07/26/18 10:45 115 H 16 125/89 H 99 07/26/18 10:42 36.9 C 114 H 16 133/86 H 100 07/26/18 09:45 36.4 C 99 18 154/97 H 97 07/26/18 09:43 91 18 130/89 H 93 07/26/18 07:48 36.3 C 91 18 130/89 H 93 Intake/Output (24 Hrs) 07/25/18 07/26/18 07/27/18 05:59 05:59 05:59 Intake Total 150 800 100 Output Total 150 0 Balance 0 800 100 Intake: Oral (ml) 150 800 IV Intake (ml) 100 Output: Urine (ml) 150 Toilet 150 Estimated Blood Loss (ml) 0 Other: Weight 63.503 kg Output Comment Toilet Multiple due to colonoscopy Number of Voids Toilet 3 Number of Stools Toilet 1 5 Result Diagrams: 07/25/18 03:26 07/24/18 03:30 Telemetry: Sinus tachycardic. - Physical Exam Constitutional: no apparent distress, cachectic Cardiovascular: regular rate and rhythm, no murmurs, no rubs, no gallops Peripheral Pulses: 2+: dorsalis-pedis (R), dorsalis-pedis (L) Respiratory: clear to auscultate bilat, no crackles, no wheezes Skin: no edema Neurologic: AAOx3 ICD10 Worksheet Patient Problems: Problems Problem Status Onset Abnormal EKG Acute Anemia Acute Syncope Acute
[2018-07-26] MEDS: ASPIRIN 81 MG CHEWABLE TAB PO SCH (15:38)
[2018-07-26] MEDS: metroNIDAZOLE 500 MG TAB PO SCH ×3 (15:39→23:09)
[2018-07-26] MEDS: ENOXAPARIN 40 MG/0.4 ML SYR SC SCH (15:39)
[2018-07-26] MEDS: NEOMYCIN SULF 500 MG TAB PO SCH ×3 (15:39→23:08)
--- NOTE | 2018-07-26 16:25 | ASMTCMCOM ---
CM Note CM Note Notes: 07/26/2018 Case Management Note Discussed pt during rounds. Colonoscopy showed nearly obstructing sigmoid cancer. Surgery is likely. PT OT evals pending. Case Management d/c poc: to be determined. Case Management to follow. Date Signed: 07/26/2018 04:24 PM Electronically Signed By:Sabrina Hamm RN
--- NOTE | 2018-07-26 18:05 | HOSPPROG ---
Hospitalist Progress Note Assessment/Plan: * Colon cancer with near obstructing mass at sigmoid -to OR with Dr. Bell in am -CT shows probable hepatic mets -will need oncology consult after surgery * Iron deficiency anemia -iron replacement * Ascites - possibly malignant * Acute systolic CHF - EF 35% -due to ischemia * CAD with occluded circumflex -stenting delayed due to need for GI surgery -coreg started * Tobacco dependence/COPD -patch * Back pain -lidocaine patch -rule out mets as cause * Hyperlipidemia -needs statin * AAA 5.7 cm with mural thrombus -not amenable to endovascular stent * Free air on CT -OR planned -will add empiric Ceftriaxone -surgery ordered PO Flagyl and neomycin for OR prep Subjective: no new complaints, still with back pain Objective: Vital Signs Temp Pulse Resp BP Pulse Ox 36.4 C 117 H 18 132/80 H 90 L 07/26/18 14:58 07/26/18 14:58 07/26/18 14:58 07/26/18 14:58 07/26/18 14:58 Laboratory Results 07/25/18 03:26 07/25/18 07/26/18 07/27/18 05:59 05:59 05:59 Intake Total 150 800 100 Output Total 150 250 Balance 0 800 -150 PT 14.7 SEC (12.0-15.0) 07/24/18 03:30 INR 1.20 (0.83-1.16) H 07/24/18 03:30 ct abd - hepatic mets d/w cardiology Priti August - coreg for surgery, possible cath after OR Laboratory Tests 07/24/18 07/24/18 07/24/18 03:30 03:30 03:30 Hgb 9.4 L INR 1.20 H LDL Cholesterol, Calc 124 H 07/25/18 03:26 Hgb 8.7 L INR LDL Cholesterol, Calc - Physical Exam Constitutional: no apparent distress, appears nourished, not in pain Cardiovascular: regular rate and rhythym, no murmur, rub, or gallop Respiratory: no respiratory distress, no rales or rhonchi, clear to auscultation Gastrointestinal: normoactive bowel sounds, soft, non-tender abdomen, no palpable masses Skin: no rashes or abrasions, no fluctuance, no induration Neurologic: AAOx3, sensation intact bilaterally Psychiatric: interacting appropriately, not anxious, not encephalopathic, thought process linear ICD10 Worksheet Patient Problems: Problems Problem Status Onset Syncope Acute Anemia Acute Abnormal EKG Acute
[2018-07-26] MEDS: NICOTINE 7 MG/24 HR PATCH TD SCH (18:08)
[2018-07-26] MEDS: FERROUS SULFATE 325 MG TAB PO SCH (19:23)
[2018-07-26] MEDS: LIDOCAINE 4% TP SCH ×2 (19:23→23:12)
[2018-07-26] MEDS: [UNRECOGNIZED DRUG - OTHER] TP SCH ×2 (19:23→23:12)
[2018-07-26] MEDS ORDERED: SODIUM CL NASAL 45 ML BTL ONE (23:19)
[2018-07-27 08:16] LABS: PLATELET COUNT 361 10^3/uL (150-400)
[2018-07-27] MEDS ORDERED: BUPIVACAINE 0.5% 30 ML SDV ONE (09:02)
[2018-07-27] MEDS ORDERED: HEPARIN 1000 UNIT/1 ML MDV ONE (09:02)
[2018-07-27] MEDS ORDERED: ceFAZolin 1 GM/5 ML SYR ONE (09:03)
[2018-07-27] MEDS: PATCH REMOVAL 1 EA PATCH TD SCH (09:33)
[2018-07-27] MEDS ORDERED: LR 1,000 ML IV ONE (09:50)
--- NOTE | 2018-07-27 10:22 | PDANEPAE ---
ANE History of Present Illness low anterior colectomy for colon CA has CAD, but Tx delayed by colon Ca ANE Past Medical History - Cardiovascular History Hx Hypertension: No Hx Arrhythmias: No Hx Chest Pain: No Hx Coronary Artery / Peripheral Vascular Disease: Yes Hx CHF / Valvular Disease: Yes Hx Palpitations: No Cardiovascular History Comment: EF 35-42%. CAD ammendable to stenting - Pulmonary History Hx COPD: No Hx Asthma/Reactive Airway Disease: No Hx Recent Upper Respiratory Infection: No Hx Oxygen in Use at Home: No Hx Sleep Apnea: No Sleep Apnea Screening Result - Last Documented: Negative - Endocrine History Hx Diabetes: No Hypothyroid: No Hyperthyroid: No Obesity: no - Renal History Hx Renal Disorders: No - Liver History Hx Hepatic Disorders: No - Neurological & Psychiatric Hx Hx Neurological and Psychiatric Disorders: No - Cancer History Hx Cancer: No - Congenital Disorder History Hx Congenital Disorders: No - GI History GERD: mild Hx Gastrointestinal Disorders: Yes Gastrointestinal History Comment: MILD GERD - Chronic Pain History Chronic Pain: Yes (BACK PAIN) ANE Review of Systems Review of Systems: - Exercise capacity Exercise capacity: <4 METS ANE Patient History - Allergies Allergies/Adverse Reactions: No Known Allergies Allergy (Verified 07/23/18 09:49) - Home Medications Home medications: home medication list seen and reviewed Home Medications: Acetaminophen [Tylenol 325mg (*)] 325 mg PO Q6 PRN 07/23/18 [Last Taken Unknown] Aspercreme With Lidocaine 4% 1 chuck TP TID 07/23/18 [Last Taken Unknown] Aspirin [Aspirin 325 mg (*)] 325 mg PO DAILY PRN 07/23/18 [Last Taken Unknown] Aspirin [Aspirin 81mg (*)] 81 mg PO DAILY 07/23/18 [Last Taken Unknown] Ibuprofen [Motrin (*)] 200 mg PO DAILY PRN 07/23/18 [Last Taken Unknown] Ranitidine HCl [Zantac] 150 mg PO DAILY 07/23/18 [Last Taken Unknown] - NPO status NPO Status: no food or drink >8 hours NPO Since - Liquids (Date): 07/26/18 NPO Since - Liquids (Time): 23:30 NPO Since - Solids (Date): 07/23/18 NPO Since - Solids (Time): 00:01 - Anes Hx Anes Hx: no prior problems - Smoking Hx Smoking Status: Former smoker - Alcohol Use Alcohol Use: Rarely - Family Anes Hx Family Anes Hx: none ANE Labs/Vital Signs - Labs Result Diagrams: 07/27/18 08:03 07/24/18 03:30 - Vital Signs Blood Pressure: 130/85 Heart Rate: 81 Respiratory Rate: 16 O2 Sat (%): 95 Height: 172.72 cm Weight: 60.4 kg ANE Physical Exam - Airway Neck exam: FROM Mallampati Score: Class 2 Mouth exam: normal dental/mouth exam - Pulmonary Pulmonary: no respiratory distress - Cardiovascular Cardiovascular: regular rate and rhythym - ASA Status ASA Status: III ANE Anesthesia Plan Anesthesia Plan: general endotracheal anesthesia Lines/Monitors: arterial line
[2018-07-27] MEDS ORDERED: fentaNYL 100 MCG/2 ML INJ ONE ×2 (10:26→14:19)
[2018-07-27] MEDS ORDERED: REMIFENTANIL HCL 1 MG VIAL ONE (10:26)
[2018-07-27] MEDS ORDERED: PROPOFOL/EMULSION 500 MG/50 ML BOTTLE IV ONE (10:26)
[2018-07-27] MEDS ORDERED: ONDANSETRON 4 MG/2 ML VIAL ONE (10:29)
[2018-07-27] MEDS ORDERED: ROCURONIUM 100 MG/10 ML VIAL ONE (10:29)
[2018-07-27] MEDS ORDERED: DEXAMETHASONE 4 MG/ML VIAL ONE ×2 (10:29)
[2018-07-27] MEDS ORDERED: cefOXitin SODIUM 2 GM in NS 100 ML IV ONE (10:30)
[2018-07-27] MEDS ORDERED: ePHEDrine SULFATE 25 MG/5 ML SYR ONE (10:42)
[2018-07-27] MEDS ORDERED: LABETALOL HCL 5 MG/ML 20 ML MDV ONE (11:44)
[2018-07-27] MEDS ORDERED: EPINEPHrine 1 MG/ML INJ ONE (12:41)
[2018-07-27] MEDS ORDERED: ROPIVACAINE HCL 150 MG/30 ML INJ ONE (12:41)
[2018-07-27] MEDS ORDERED: SUGAMMADEX SODIUM 200 MG/2 ML VIAL IVP ONE (12:46)
[2018-07-27] MEDS ORDERED: ONDANSETRON 4 MG/2 ML VIAL IVP PRN (13:12)
[2018-07-27] MEDS ORDERED: MEPERIDINE 25 MG/0.5 ML AMP IVP PRN (13:12)
[2018-07-27] MEDS ORDERED: PROMETHAZINE HCL 25 MG/ML INJ IVP PRN (13:12)
[2018-07-27] MEDS ORDERED: LABETALOL HCL 5 MG/ML 20 ML MDV IVP PRN (13:12)
[2018-07-27] MEDS ORDERED: METOCLOPRAMIDE 10 MG/2 ML VIAL IVP PRN (13:12)
[2018-07-27] MEDS ORDERED: oxyCODONE IR 5 MG TAB PO PRN (13:12)
[2018-07-27] MEDS ORDERED: LR 500 ML IV PRN (13:12)
[2018-07-27] MEDS ORDERED: fentaNYL 100 MCG/2 ML INJ IVP PRN (13:12)
[2018-07-27] MEDS ORDERED: ALBUTEROL 3 ML DEYVIAL IH PRN (13:12)
[2018-07-27] MEDS ORDERED: DEXAMETHASONE 4 MG/ML VIAL IVP PRN (13:12)
[2018-07-27] MEDS ORDERED: NALOXONE HCL 0.4 MG/ML INJ IVP PRN (13:12)
[2018-07-27] MEDS ORDERED: PHENYLEPHRINE HCL 100 MCG/ML SYR IVP PRN (13:12)
[2018-07-27] MEDS ORDERED: D5W 1/2 NS W/ 20 KCl/L 1,000 ML IV SCH (13:30)
--- NOTE | 2018-07-27 14:02 | POSTOPPROG ---
Post Op Note Date of Operation: 07/27/18 Surgeon: Jarad Bell Certified Financial Planner: Gaurav Anesthesiologist: Segundo Anesthesia: GET(General Endotracheal) Pre-op Diagnosis: Sigmoid colon tumor, liver mets Post-op Diagnosis: Same Indication: Same Procedure: Lap assisted sigmoid colectomy, liver bx Findings: Perforated sigmoid, multiple liver mets, intact anastomotic rings Inf/Abcess present in the surg proc area at time of surgery?: No Depth: Organ Space EBL: 50-100 Bowel Protocol: Yes Clean Closure Performed: Yes Specimen(s): Perforated sigmoid colon with tumor- fresh Anastomotic rings - permanent
[2018-07-27] MEDS ORDERED: HYDROmorphONE/DILAUDID 2 MG/ML INJ ONE (14:20)
--- NOTE | 2018-07-27 14:26 | POSTANESTH ---
Post Anesthetic Evaluation Cardiovascular Status: Normal, Stable Respiratory Status: Normal, Stable, Tx Decrease in SpO2 Level of Consciousness/Mental Status: Can Participate in Eval Pain Control: Adequate, Prn Tx Ordered Nausea/Vomiting Control: Adequate, Prn Tx Ordered Complications Possibly Related to Anesthesia: None Noted
[2018-07-27] MEDS: CARVEDILOL 3.125 MG TAB PO SCH ×2 (15:09→17:49)
[2018-07-27] MEDS: ATORVASTATIN CALCIUM 40 MG TAB PO SCH (15:43)
[2018-07-27] MEDS: FAMOTIDINE 20 MG TAB PO SCH (15:43)
[2018-07-27] MEDS: FERROUS SULFATE 325 MG TAB PO SCH ×2 (15:43→22:16)
[2018-07-27] MEDS: SENNOSIDES/DOCUSATE SODIUM TAB PO SCH ×2 (15:47→22:16)
[2018-07-27] MEDS: ASPIRIN 81 MG CHEWABLE TAB PO SCH (16:35)
[2018-07-27] MEDS: NEOMYCIN SULF 500 MG TAB PO SCH (16:37)
--- NOTE | 2018-07-27 17:42 | HOSPPROG ---
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 Objective: Vital Signs Temp Pulse Resp BP Pulse Ox 36.5 C 70 20 121/70 H 99 07/27/18 15:09 07/27/18 17:26 07/27/18 15:09 07/27/18 17:26 07/27/18 15:09 Laboratory Results 07/27/18 08:03 07/26/18 07/27/18 07/28/18 05:59 05:59 05:59 Intake Total 800 350 900 Output Total 650 405 Balance 800 -300 495 PT 14.7 SEC (12.0-15.0) 07/24/18 03:30 INR 1.20 (0.83-1.16) H 07/24/18 03:30 - Physical Exam Constitutional: no apparent distress, appears nourished, not in pain Cardiovascular: regular rate and rhythym, no murmur, rub, or gallop Respiratory: no respiratory distress, no rales or rhonchi, clear to auscultation Gastrointestinal: soft, non-tender abdomen, no palpable masses, distension, No ascites, No guarding, No rebound Skin: no rashes or abrasions, no fluctuance, no induration Neurologic: AAOx3, sensation intact bilaterally Psychiatric: interacting appropriately, not anxious, not encephalopathic, thought process linear ICD10 Worksheet Patient Problems: Problems Problem Status Onset Syncope Acute Anemia Acute Abnormal EKG Acute
[2018-07-27] MEDS: NICOTINE 7 MG/24 HR PATCH TD SCH (17:49)
[2018-07-27] MEDS: [UNRECOGNIZED DRUG - OTHER] TP SCH (17:49)
[2018-07-27] MEDS: LIDOCAINE 4% TP SCH (17:49)
[2018-07-27] MEDS: HYDROCODONE/APAP 5/325 TAB PO PRN (22:16)
[2018-07-28 04:23] LABS: PLATELET COUNT 343 10^3/uL (150-400)
[2018-07-28] MEDS: PATCH REMOVAL 1 EA PATCH TD SCH (05:40)
[2018-07-28] MEDS ORDERED: PROTOCOL POTASSIUM 1 DOSE MISC PRN (08:45)
[2018-07-28] MEDS: CARVEDILOL 3.125 MG TAB PO SCH ×2 (09:01→18:25)
[2018-07-28] MEDS: FAMOTIDINE 20 MG TAB PO SCH (09:02)
[2018-07-28] MEDS: FERROUS SULFATE 325 MG TAB PO SCH ×2 (09:02→19:22)
[2018-07-28] MEDS: SENNOSIDES/DOCUSATE SODIUM TAB PO SCH ×2 (09:02→20:58)
[2018-07-28] MEDS: ATORVASTATIN CALCIUM 40 MG TAB PO SCH (09:02)
[2018-07-28] MEDS: ASPIRIN 81 MG CHEWABLE TAB PO SCH (09:02)
[2018-07-28] MEDS: LIDOCAINE 4% TP SCH ×2 (09:10→18:36)
[2018-07-28] MEDS: [UNRECOGNIZED DRUG - OTHER] TP SCH ×2 (09:10→18:36)
[2018-07-28] MEDS ORDERED: POTASSIUM CL 10 MEQ TAB PO ONE (09:26)
--- NOTE | 2018-07-28 09:30 | PDCARPN ---
Cardiology Progress Note Assessment/Plan: Assessment: 1. 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 LVEF 40% 2. Anemia, GI origin 3. Colon cancer with hepatic mets and ascites 4. AAA with thrombus not amenable to endovascular stent Plan: 1. No plan on coronary intervention given overall prognosis, anemia and collateralized LCX system. d.w. patient and and with Dr. Ryan 2. Continue BB 07/28/18 09:30 Subjective: Reports no new complaints and RN at bedside Reviewed/Discussed With: family, multidisciplinary team Time Spent with Patient: greater than 25 minutes Time Spent with Patient: Greater than 25 minutes spent on this patients care, greater than 50% of time spent counseling, educating, and coordinating care regarding the above mentioned plan. Objective: Vital Signs (8 Hrs) Temp Pulse Resp BP Pulse Ox 07/28/18 07:36 36.3 C 81 12 118/67 96 07/28/18 04:00 36.6 C 73 15 99/54 L 95 Intake/Output (24 Hrs) 07/26/18 07/27/18 07/28/18 11:59 11:59 11:59 Intake Total 927 467 7656 Output Total 0 650 405 Balance 900 -400 615 Intake: Oral (ml) 800 250 IV Intake (ml) 100 900 IV Infused (ml) 120 cefTRIAXone 1 GM/DEXTROSE 120 50 ml @ 100 mls/hr IV DAILY [facility] Rx#:[id number] Output: Urine (ml) 650 380 Catheter 180 Toilet 250 Urinal 400 200 Estimated Blood Loss (ml) 0 25 Other: Weight 63.503 kg 60.4 kg 60.9 kg Output Comment Toilet Multiple due to colonoscopy Number of Voids Toilet 2 2 Urinal 3 Number of Stools Toilet 5 1 2 Result Diagrams: 07/28/18 03:00 07/28/18 03:00 Telemetry: sinus w PAC and PVC ICD10 Worksheet Patient Problems: Problems Problem Status Onset Syncope Acute Anemia Acute Abnormal EKG Acute
--- NOTE | 2018-07-28 10:18 | SOAPPROG ---
SOAP Progress Note Assessment/Plan: Assessment/Plan: 73yo M POD#1 s/p sigmoid colectomy for nearly obstructing sigmoid mass with perforation, liver biopsy. Significant liver metastases at time of surgery. Pathology pending. Continue therapeutic antibiotics given perforation Significant CV comorbidities - coronary artery disease, CHF, AAA Appreciate hospitalist and Cardiology management of comorbidities Recheck labs in a.m. - monitor anemia Passing flatus Clear liquid diet Dispo: Continue inpatient until tolerating diet, return of bowel function and pain control. Seen with Dr. Self S: Feels well this morning. Pain is controlled. He is passing gas. He is hungry. O: General: Lying in bed, comfortable, no acute distress HENT: Normocephalic, no gross hearing deficits, mucous membranes moist, pupils equal and round Lungs: No increased work of breathing, supplemental oxygen Abdomen: Hypoactive bowel sounds, abdomen soft and non tender. Dressings intact. Skin: Warm and dry. Psych: Mood and affect normal Neuro: Grossly intact Objective: Vital Signs Temp Pulse Resp BP Pulse Ox 36.3 C 81 12 118/67 96 07/28/18 07:36 07/28/18 07:36 07/28/18 07:36 07/28/18 07:36 07/28/18 07:36 Laboratory Results 07/28/18 03:00 07/28/18 03:00 07/27/18 07/28/18 07/29/18 05:59 05:59 05:59 Intake Total 350 1020 Output Total 650 405 125 Balance -300 615 -125 PT 14.7 SEC (12.0-15.0) 07/24/18 03:30 INR 1.20 (0.83-1.16) H 07/24/18 03:30 ICD10 Worksheet Patient Problems: Problems Problem Status Onset Abnormal EKG Acute Anemia Acute Syncope Acute
[2018-07-28] MEDS: ACETAMINOPHEN 325 MG TAB PO PRN ×3 (10:29→19:22)
[2018-07-28] MEDS: ENOXAPARIN 40 MG/0.4 ML SYR SC SCH (10:30)
--- NOTE | 2018-07-28 12:48 | GCON ---
[f rep st] CONSULTATION ONCOLOGY CONSULTATION DATE OF CONSULTATION: 07/28/2018 REASON FOR CONSULTATION: Newly diagnosed metastatic colorectal cancer. HISTORY OF PRESENT ILLNESS: The patient is a pleasant 73-year-old gentleman who is hospitalized with a new diagnosis of metastatic colorectal cancer. The patient reports developing constipation and intermittent abdominal bloating in late April 2018 . He has never had a prior colonoscopy. His symptoms gradually grew worse. He had a syncopal episo de leading to hospital admission. He was noted to have iron deficiency anemia. The patient had an u pper endoscopy and colonoscopy which revealed a nearly obstructing mass in the sigmoid colon. A subs equent CT of the chest, abdomen, and pelvis revealed evidence of multiple hepatic metastases as well as evidence of a nodular mass in the right middle lobe and a small right pleural-based nodule, possib ly representing areas of malignant spread. He was seen by Dr. Bell of General Surgery. He underwent a sigmoid colectomy yesterday. One of his liver lesions was biopsied intraoperatively. When seen this afternoon, he is doing well. He reports minimal postoperative pain. He denies nausea or vomiting. His , Linnette, as well as his son are at the bedside. PAST MEDICAL HISTORY: Essentially unremarkable. SURGICAL HISTORY: Tonsillectomy. FAMILY MEDICAL HISTORY: Patient reports his sister had breast cancer and his mother had myelodysplas tic syndrome. SOCIAL HISTORY: The patient lives [place] of [place]. He is to [place]. 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 He is a former smoke r, but quit approximately 5 years ago. REVIEW OF SYSTEMS: As outlined above. Remainder of 12-point review of systems otherwise negative. PHYSICAL EXAM: GENERAL: Patient is sitting comfortably in a chair. He is in no acute distress. HE ENT: Pupils equal. Sclerae nonicteric. Conjunctivae normal. LYMPH NODES: No palpable submandibul ar, cervical or supraclavicular adenopathy. HEART: Regular without murmur. LUNGS: Clear bilateral ly. No wheeze, rhonchi, crackles, or flank tenderness. ABDOMEN: Mildly to moderately distended. B owel sounds are normoactive. Surgical incision sites are healing. No palpable mass. No reproducibl e tenderness in the abdomen. EXTREMITIES: No extremity swelling or edema. NEUROLOGIC: Patient is alert, oriented, appropriate. IMAGING STUDIES: As per HPI. LABORATORY STUDIES: White count 9.8, hemoglobin 7.9, hematocrit 25.7, platelet count is 343,000. So dium 131, potassium 3.1, chloride 99, bicarb is 27, BUN 10, creatinine is 0.7. CEA is 3390. IMPRESSION: 1. Metastatic colorectal cancer. 2. Family history of breast carcinoma (sister). 3. Iron deficiency anemia secondary to #1. PLAN: The patient is a pleasant 73-year-old gentleman who has undergone a palliative sigmoid colecto my for metastatic sigmoid colon cancer. I reviewed his diagnosis, prognosis, and treatment options with him at length this afternoon. I expl ained that unfortunately his cancer has spread and is not curable. The role of palliative chemothera py and its positive impact on overall survival from the disease process was reviewed in detail. We d iscussed that patients with metastatic colorectal cancer can survive with their disease for 3 to 5 ye ars on average with modern oncology treatments. I do favor cardiac intervention for his coronary artery disease given his anticipated survival. We would plan to start palliative treatment 4 to 6 weeks after his surgery. Our service will continu e to follow him intermittently during his hospital stay and will plan on outpatient followup as well. He may benefit from IV iron therapy in the future if his anemia does not improve. The patient and his family members asked multiple questions which were answered. We will plan on outpatient followup once he is discharged. He stated today that he would prefer to f ollow up in the office in [place] given that is where he works which we will facilitate. His case was discussed with Dr. Cox of the hospitalist service. Total time for today's visit was approximately 45 minutes of which greater than 50% was spent in coun seling and care coordination. /[id number]/MODL
--- NOTE | 2018-07-28 15:19 | HOSPPROG ---
Hospitalist Progress Note Assessment/Plan: * Colon cancer with near obstructing mass at sigmoid, with small perf -s/p resection -IV ceftriaxone/flagyl given perforation * Hepatic mets -per oncology prognosis is 3-5 years * Ascites - possibly malignant * Acute systolic CHF - EF 35% -due to ischemia * CAD with occluded circumflex -stenting delayed due to need for GI surgery -coreg -watch for signs of ischemic indira-operatively -oncology favors proceeding with stent if otherwise indicated -d/w Dr. Smith * Tobacco dependence/COPD -patch * Back pain -lidocaine patch * Hyperlipidemia -statin * AAA 5.7 cm with mural thrombus -not amenable to endovascular stent Subjective: Tolerating clears Objective: Vital Signs Temp Pulse Resp BP Pulse Ox 36.3 C 82 16 94/62 L 96 07/28/18 12:00 07/28/18 12:00 07/28/18 12:00 07/28/18 12:00 07/28/18 12:00 Laboratory Results 07/28/18 03:00 07/28/18 03:00 07/27/18 07/28/18 07/29/18 05:59 05:59 05:59 Intake Total 350 1020 Output Total 650 405 125 Balance -300 615 -125 PT 14.7 SEC (12.0-15.0) 07/24/18 03:30 INR 1.20 (0.83-1.16) H 07/24/18 03:30 d/w Dr. Smith - prognosis 3-5 years tele reviewed - NSR - Physical Exam Constitutional: no apparent distress, appears nourished, not in pain Cardiovascular: regular rate and rhythym, no murmur, rub, or gallop Respiratory: no respiratory distress, no rales or rhonchi, clear to auscultation Gastrointestinal: tenderness, distension, No normoactive bowel sounds, No guarding, No rebound Skin: no rashes or abrasions, no fluctuance, no induration Neurologic: AAOx3, sensation intact bilaterally Psychiatric: interacting appropriately, not anxious, not encephalopathic, thought process linear ICD10 Worksheet Patient Problems: Problems Problem Status Onset Syncope Acute Anemia Acute Abnormal EKG Acute
--- NOTE | 2018-07-28 15:44 | ASMTCMCOM ---
CM Note CM Note Notes: 07/28/2018 Case Management Note Discussed pt during rounds. [facility] Palliative Team to meet with patient and family on Monday to discuss goals of care. PT OT recommending home care. Met w/pt and to discuss. Pt uncertain if home care is necessary but did agree to referrals. Pt is part of [facility] system, requested referral to preferred [facility] home care. Called [facility] and spoke to health and social care teacher. [facility] does not have own homecare. [facility] uses same preferred providers as [facility]. Discussed with who requested referral to [facility]. Faxed referral. Case Management d/c poc: [facility] pending acceptance. Case Management to follow. Date Signed: 07/28/2018 03:43 PM Electronically Signed By:Sabrina Hamm RN
[2018-07-28] MEDS: NICOTINE 14 MG/24 HR PATCH TD SCH (18:25)
[2018-07-28] MEDS: NICOTINE 7 MG/24 HR PATCH TD SCH (18:52)
[2018-07-29] MEDS: HYDROCODONE/APAP 5/325 TAB PO PRN ×6 (00:08→23:36)
[2018-07-29 04:25] LABS: PLATELET COUNT 397 10^3/uL (150-400)
[2018-07-29] MEDS: PATCH REMOVAL 1 EA PATCH TD SCH (05:29)
[2018-07-29] MEDS ORDERED: POTASSIUM CL 10 MEQ TAB PO ONE (08:03)
[2018-07-29] MEDS: ATORVASTATIN CALCIUM 40 MG TAB PO SCH (09:30)
[2018-07-29] MEDS: CARVEDILOL 3.125 MG TAB PO SCH ×2 (09:31→18:32)
[2018-07-29] MEDS: FAMOTIDINE 20 MG TAB PO SCH (09:31)
[2018-07-29] MEDS: ASPIRIN 81 MG CHEWABLE TAB PO SCH (09:31)
[2018-07-29] MEDS: FERROUS SULFATE 325 MG TAB PO SCH ×2 (09:31→21:15)
[2018-07-29] MEDS: SENNOSIDES/DOCUSATE SODIUM TAB PO SCH (09:32)
[2018-07-29] MEDS: ENOXAPARIN 40 MG/0.4 ML SYR SC SCH (09:56)
--- NOTE | 2018-07-29 13:28 | SOAPPROG ---
SOAP Progress Note Assessment/Plan: Assessment/Plan: 73yo M POD#2 s/p sigmoid colectomy for nearly obstructing sigmoid mass with perforation, liver biopsy. Significant liver metastases at time of surgery. Pathology pending. Continue therapeutic antibiotics given perforation Significant CV comorbidities - coronary artery disease, CHF, AAA Appreciate hospitalist and Cardiology management of comorbidities Minimal flatus this am. Tolerating clear liquid diet. Dispo: Continue inpatient until tolerating diet, return of bowel function and pain control. S: Feels well this morning. Min flatus this am. Pain is controlled. Tolerating clears O: General: Lying in bed, comfortable, no acute distress HENT: Normocephalic, no gross hearing deficits, mucous membranes moist, pupils equal and round Lungs: No increased work of breathing, supplemental oxygen Abdomen: Hypoactive bowel sounds. Distended but soft, non tender. Incision CDI Skin: Warm and dry. Psych: Mood and affect normal Neuro: Grossly intact Objective: Vital Signs Temp Pulse Resp BP Pulse Ox 36.6 C 80 18 115/70 99 07/29/18 12:00 07/29/18 12:00 07/29/18 12:00 07/29/18 12:00 07/29/18 12:00 Laboratory Results 07/29/18 03:25 07/29/18 03:25 07/28/18 07/29/18 07/30/18 05:59 05:59 05:59 Intake Total 1020 2325 80 Output Total 405 325 Balance 615 2000 80 PT 14.7 SEC (12.0-15.0) 07/24/18 03:30 INR 1.20 (0.83-1.16) H 07/24/18 03:30 ICD10 Worksheet Patient Problems: Problems Problem Status Onset Abnormal EKG Acute Anemia Acute Syncope Acute
--- NOTE | 2018-07-29 14:23 | SOAPPROG ---
TRIST[facility] Progress Note Assessment/Plan: Assessment:Ramsey has a MEDICAL SECRETARY of the left circumflex which is well collateralized... I would like for him to be out several weeks from his colon surgery and eating well with improvement in his blood loss anemia before tackling what is likely a chronic problem with him. I have asked that he avoid strenuous activity (nothing to get red in the face hot or sweaty until he sees me in the clinic in follow up which will be planned in 3-4 weeks. If his anemia has recovered sufficiently at that point we will plan for an elective Chronic Total Occlusion repair of the proximal left circumflex. We can obviously move up the timeline if he suffers from acute cardiac symptoms in the interim... I discussed this plan in detail with the patient and Dr. Rosales who are in agreement. We will sign off for now and plan to see him on an as needed basis and only if we are called. Plan: As above. Approximately 25 minutes spent coordinating care and plan with patient, multidisciplinary team and family. 07/29/18 14:17 Objective: Vital Signs Temp Pulse Resp BP Pulse Ox 36.6 C 80 18 115/70 99 07/29/18 12:00 07/29/18 12:00 07/29/18 12:00 07/29/18 12:00 07/29/18 12:00 Laboratory Results 07/29/18 03:25 07/29/18 03:25 07/28/18 07/29/18 07/30/18 05:59 05:59 05:59 Intake Total 1020 2325 80 Output Total 405 325 Balance 615 2000 80 PT 14.7 SEC (12.0-15.0) 07/24/18 03:30 INR 1.20 (0.83-1.16) H 07/24/18 03:30 - Pending Discharge Pending Discharge Within 24 Hours: No Pending Discharge Within 48 Hours: No ICD10 Worksheet Patient Problems: Problems Problem Status Onset Syncope Acute Anemia Acute Abnormal EKG Acute
--- NOTE | 2018-07-29 15:50 | ASMTCMCOM ---
CM Note CM Note Notes: 07/29/2018 Case Management Note Met w/pt during rounds this morning. present. Notified pt has been accepted by [facility]. Case Management d/c poc: home with [facility] RN PT OT Case management to follow. Date Signed: 07/29/2018 03:49 PM Electronically Signed By:Sabrina Hamm RN
--- NOTE | 2018-07-29 16:02 | HOSPPROG ---
Hospitalist Progress Note Assessment/Plan: * Colon cancer with near obstructing mass at sigmoid, with small perf -s/p resection -IV ceftriaxone/flagyl given perforation * Hepatic mets -per oncology prognosis is 3-5 years * Ascites - possibly malignant * Acute systolic CHF - EF 35% -due to ischemia * CAD with occluded circumflex -stenting delayed due to need for GI surgery -coreg -watch for signs of ischemic indira-operatively -oncology favors proceeding with stent -d/w Dr. Ryan - follow-up 3-4 weeks for outpatient cath once recovered from surgery -no strenuous activity until after stent placement * Tobacco dependence/COPD -patch * Back pain -resolved with resection of sigmoid mass - suggests back pain related to malignancy * Hyperlipidemia -statin * AAA 5.7 cm with mural thrombus -not amenable to endovascular stent Subjective: Tolerating clears, wants to advance Objective: Vital Signs Temp Pulse Resp BP Pulse Ox 36.6 C 80 18 115/70 99 07/29/18 12:00 07/29/18 12:00 07/29/18 12:00 07/29/18 12:00 07/29/18 12:00 Laboratory Results 07/29/18 03:25 07/29/18 03:25 07/28/18 07/29/18 07/30/18 05:59 05:59 05:59 Intake Total 1020 2325 80 Output Total 405 325 175 Balance 615 1999 PT 14.7 SEC (12.0-15.0) 07/24/18 03:30 INR 1.20 (0.83-1.16) H 07/24/18 03:30 d/w Dr. Ryan regarding Dr. Smith recommendation to proceed with stent Tele reviewed - NSR - Physical Exam Constitutional: no apparent distress, appears nourished, not in pain Cardiovascular: regular rate and rhythym, no murmur, rub, or gallop Respiratory: no respiratory distress, no rales or rhonchi, clear to auscultation Gastrointestinal: normoactive bowel sounds, soft, non-tender abdomen, no palpable masses Skin: no rashes or abrasions, no fluctuance, no induration Neurologic: AAOx3, sensation intact bilaterally Psychiatric: interacting appropriately, not anxious, not encephalopathic, thought process linear ICD10 Worksheet Patient Problems: Problems Problem Status Onset Syncope Acute Anemia Acute Abnormal EKG Acute
[2018-07-29] MEDS: [UNRECOGNIZED DRUG - OTHER] TP SCH (18:28)
[2018-07-29] MEDS: LIDOCAINE 4% TP SCH (18:28)
[2018-07-29] MEDS: NICOTINE 14 MG/24 HR PATCH TD SCH (18:37)
[2018-07-30] MEDS: PATCH REMOVAL 1 EA PATCH TD SCH (06:05)
[2018-07-30] MEDS: ACETAMINOPHEN 325 MG TAB PO PRN ×3 (06:27→21:10)
[2018-07-30] MEDS: ATORVASTATIN CALCIUM 40 MG TAB PO SCH (08:44)
[2018-07-30] MEDS: FAMOTIDINE 20 MG TAB PO SCH (08:44)
[2018-07-30] MEDS: FERROUS SULFATE 325 MG TAB PO SCH (08:44)
[2018-07-30] MEDS: ASPIRIN 81 MG CHEWABLE TAB PO SCH (08:44)
[2018-07-30] MEDS: CARVEDILOL 3.125 MG TAB PO SCH ×2 (08:44→17:25)
[2018-07-30] MEDS: ENOXAPARIN 40 MG/0.4 ML SYR SC SCH (08:44)
--- NOTE | 2018-07-30 09:24 | HOSPPROG ---
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 * Suspected perforation and possible intra-abdominal infection * Postop ileus slowly improving * Ischemic cardiomyopathy, with wall motion abnormality seen on echo * CAD with occluded circumflex and 40% lad lesions * Iron deficiency anemia from his cancer * Ascites, question malignant verses heart failure, or hydrostatic due to his liver metastatic burden * COPD/tobacco dependence * A 5.7 cm with mural thrombus, not amenable to endovascular stenting * Hyperlipidemia on statin PLANS: * Continue current antibiotics * Continue to attempt to advance diet * Due to postop ileus will stop oral iron and use IV iron here at present * Increase mobility ambulation as able * Current plans remain to delay revascularization efforts for coronary disease as long as he remains stable cardiac bell * Aspirin and Lipitor along with beta-sharon are in place * Discharge will be dependent on further recovery of food intake, ambulation and resolution of ileus, stability of his heart Seen by me on hospitalist rounds and multidisciplinary rounds today Reviewed in detail with Dr. Bell today SUBJECTIVE: Feeling somewhat better overall No shortness of breath or angina Some walking yesterday, a few bites of solid food this morning Some stool and flatus yesterday but none yet today OBJECTIVE Vitals reviewed: Blood pressure is slightly higher today in good range, otherwise stable without fever Manager Of It, my review: Sinus Exam: alert oriented relaxed, looks tired and mildly uncomfortable skin warm dry color pale resps not labored lungs clear BSs heart regular abd soft nondistended nontender, bowel sounds present a bit high pitched; wounds look good limbs warm, no edema iv site ok Lab data: Pathology reports from his colon and liver still pending Objective: Vital Signs Temp Pulse Resp BP Pulse Ox 36.3 C 92 14 138/82 H 97 07/30/18 07:06 07/30/18 08:44 07/30/18 07:06 07/30/18 07:06 07/30/18 07:06 Laboratory Results 07/29/18 03:25 07/29/18 03:25 07/29/18 07/30/18 07/31/18 06:59 06:59 06:59 Intake Total 2325 1472 Output Total 325 375 Balance 1999 1097 PT 14.7 SEC (12.0-15.0) 03/12/19 03:30 INR 1.20 (0.83-1.16) H 07/24/18 03:30 - Time Spent With Patient Time Spent with Patient: greater than 35 minutes Time Spent with Patient: Greater than 35 minutes spent on this patients care, greater than 50% of time spent counseling, educating, and coordinating care regarding the above mentioned plan. ICD10 Worksheet Patient Problems: Problems Problem Status Onset Abnormal EKG Acute Anemia Acute Syncope Acute
--- NOTE | 2018-07-30 09:59 | SOAPPROG ---
SOAP Progress Note Assessment/Plan: Assessment/Plan: 73yo M POD#3 s/p sigmoid colectomy for nearly obstructing sigmoid mass with perforation, liver biopsy. Significant liver metastases at time of surgery. Pathology pending. Continue therapeutic antibiotics given perforation Significant CV comorbidities - coronary artery disease, CHF, AAA Appreciate hospitalist and Cardiology management of comorbidities Tolerating regular diet. Going slow. Passing flatus and BMs. Dispo: pending clinical course S: Feels well this morning. O: Alert Afebrile CTAB, no increased WOB Abdomen: Hypoactive bowel sounds. Distended but soft, non tender. Incision CDI Skin: Warm and dry. Psych: Mood and affect normal Neuro: Grossly intact 07/30/18 09:57 Objective: Vital Signs Temp Pulse Resp BP Pulse Ox 36.3 C 92 14 138/82 H 97 07/30/18 07:06 07/30/18 08:44 07/30/18 07:06 07/30/18 07:06 07/30/18 07:06 Laboratory Results 07/29/18 03:25 07/29/18 03:25 07/29/18 07/30/18 07/31/18 05:59 05:59 05:59 Intake Total 2325 1472 Output Total 325 375 Balance 1999 1097 PT 14.7 SEC (12.0-15.0) 07/24/18 03:30 INR 1.20 (0.83-1.16) H 07/24/18 03:30 ICD10 Worksheet Patient Problems: Problems Problem Status Onset Abnormal EKG Acute Anemia Acute Syncope Acute
[2018-07-30] MEDS: SODIUM FERRIC GLUCONAT/SUCROSE 125 MG in NS 100 ML IV SCH (12:11)
--- NOTE | 2018-07-30 14:30 | ASMTCMCOM ---
CM Note CM Note Notes: Pts case discussed in tx rounds. CM spoke to Jeevan yeung/ palliative about this case. Pt had a palliative today. Pt is agreeable to palliative services. Referral sent to [facility]. [facility] will most likely be here tomorrow to meet w/ pt. Date Signed: 07/30/2018 02:29 PM Electronically Signed By:BRUCE Romano
[2018-07-30] MEDS: NICOTINE 14 MG/24 HR PATCH TD SCH (17:26)
[2018-07-30] MEDS: LIDOCAINE 4% TP SCH (18:45)
[2018-07-30] MEDS: [UNRECOGNIZED DRUG - OTHER] TP SCH (18:45)
[2018-07-31] MEDS: ACETAMINOPHEN 325 MG TAB PO PRN ×4 (01:10→22:17)
[2018-07-31] MEDS: PATCH REMOVAL 1 EA PATCH TD SCH (05:46)
[2018-07-31] MEDS: CARVEDILOL 3.125 MG TAB PO SCH ×2 (08:57→18:16)
[2018-07-31] MEDS: ASPIRIN 81 MG CHEWABLE TAB PO SCH (08:57)
[2018-07-31] MEDS: FAMOTIDINE 20 MG TAB PO SCH (08:58)
[2018-07-31] MEDS: ATORVASTATIN CALCIUM 40 MG TAB PO SCH (08:58)
[2018-07-31] MEDS: ENOXAPARIN 40 MG/0.4 ML SYR SC SCH (09:00)
[2018-07-31] MEDS: SODIUM FERRIC GLUCONAT/SUCROSE 125 MG in NS 100 ML IV SCH (10:21)
--- NOTE | 2018-07-31 12:17 | HOSPPROG ---
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 * Suspected perforation and possible intra-abdominal infection,, ascites present ; on antibiotics * Postop ileus slowly improving * Ischemic cardiomyopathy, with wall motion abnormality seen on echo * CAD with occluded circumflex and 40% lad lesions * Iron deficiency anemia from his cancer * Marked diffuse muscle wasting and severe weakness in certain muscle groups, likely due to combination of poor food intake over time as well as cancer induced muscle wasting * Severe deconditioning and gait instability due to above * Functional status is significantly decreased due to above which will be important in looking at managing his cancer going forward * COPD/tobacco dependence * A 5.7 cm with mural thrombus, not amenable to endovascular stenting * Hyperlipidemia on statin PLANS: * Continue current antibiotics * Continue to attempt to advance diet; will add liquid supplements and multiple vitamins at this time * Due to postop ileus continue IV iron at present * Increase mobility ambulation as able, physical occupational therapy * Current plans remain to delay revascularization efforts for coronary disease as long as he remains stable cardiac bell * Aspirin and Lipitor along with beta-sharon are in place * Discharge will be dependent on further recovery of food intake, ambulation and resolution of ileus, stability of his heart; he clearly needs shelter rehabilitation and where arranging for that Seen by me on hospitalist rounds and multidisciplinary rounds today SUBJECTIVE: Feeling better overall in terms of eating and had a bowel movement However notes severe weakness. On review of weakness it sounds like he has been getting gradually weaker over period of several months. He specifically notes his left leg but both legs as being weak. There is no muscular pain or anything that sounds like a neuropathic pain involved in this. He has lost weight. Clearly with his history we know he has not been eating well for a long time OBJECTIVE Vitals reviewed: Blood pressure is slightly higher today in good range, otherwise stable without fever Air Box Tester, my review: Sinus Exam: alert oriented relaxed, looks tired and mildly uncomfortable skin warm dry color pale resps not labored lungs clear BSs heart regular abd soft nondistended nontender, bowel sounds present a bit high pitched; wounds look good limbs warm, no edema Neuro muscular: On my exam today he has very significant atrophy of the biceps triceps forearms and in particular the quadriceps muscle groups. 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 No sensory loss and no tremor iv site ok Lab data: Pathology: Moderately differentiated adenocarcinoma from his colonoscopy biopsy of the sigmoid lesion Objective: Vital Signs Temp Pulse Resp BP Pulse Ox 36.4 C 81 13 118/64 90 L 07/31/18 11:13 07/31/18 11:13 07/31/18 11:13 07/31/18 11:13 07/31/18 11:13 Laboratory Results 07/29/18 03:25 07/29/18 03:25 07/30/18 07/31/18 08/01/18 06:59 06:59 06:59 Intake Total 1472 400 Output Total 375 Balance 1097 400 PT 14.7 SEC (12.0-15.0) 07/24/18 03:30 INR 1.20 (0.83-1.16) H 07/24/18 03:30 - Time Spent With Patient Time Spent with Patient: greater than 35 minutes Time Spent with Patient: Greater than 35 minutes spent on this patients care, greater than 50% of time spent counseling, educating, and coordinating care regarding the above mentioned plan. ICD10 Worksheet Patient Problems: Problems Problem Status Onset Abnormal EKG Acute Anemia Acute Syncope Acute
--- NOTE | 2018-07-31 16:08 | ASMTCMCOM ---
CM Note CM Note Notes: Pts case discussed in tx rounds. CM met w/ pts family for dispo planning. Pt was resting at the time. PT is recommending SNF. CM provided family w/ senior blue book. They would like referrals sent to [facility], [facility] and [facility]. Pts family would like to be notified once facilities have accepted for them to go tour. Pts spoke to pt about going to SNF and he is agreeable. Thi from [facility] met w/ pts family today. Pt would prefer to d/c home if he improves in the next couple of days w/ HC. CM to follow. Plan: SNF w/ outpatient [facility] vs [facility], PT, OT, RN w/ outpatient [facility] Date Signed: 07/31/2018 04:07 PM Electronically Signed By:BRUCE Romano
--- NOTE | 2018-07-31 18:07 | SOAPPROG ---
SOAP Progress Note Assessment/Plan: Assessment/Plan: Assessment/Plan: 73yo M POD#4 s/p sigmoid colectomy for nearly obstructing sigmoid mass with perforation, liver biopsy. Significant liver metastases at time of surgery. Doing well, but weak, deconditioned, slow to eat. Getting CBC--still having some dark stools. Probably still left over from surgery, but r/o bleeding. Pathology pending. Continue antibiotics for perforation/contamination. Significant CV comorbidities - coronary artery disease, CHF, AAA Appreciate hospitalist and Cardiology management of comorbidities Tolerating regular diet. Going slow. Passing flatus and BMs. Dispo: pending. Maybe to SNF once ready. Also seen by Dr. Bell today. Alert, oriented, nad mmm no wob abd soft, appropriately ttp, inc cdi 07/31/18 18:04 Objective: Vital Signs Temp Pulse Resp BP Pulse Ox 36.4 C 78 17 124/72 H 91 L 07/31/18 15:42 07/31/18 15:42 07/31/18 15:42 07/31/18 15:42 07/31/18 15:42 Laboratory Results 07/29/18 03:25 07/29/18 03:25 07/30/18 07/31/18 08/01/18 05:59 05:59 05:59 Intake Total 1472 400 Output Total 375 Balance 1097 400 PT 14.7 SEC (12.0-15.0) 07/24/18 03:30 INR 1.20 (0.83-1.16) H 07/24/18 03:30 ICD10 Worksheet Patient Problems: Problems Problem Status Onset Abnormal EKG Acute Anemia Acute Syncope Acute
[2018-07-31] MEDS: NICOTINE 14 MG/24 HR PATCH TD SCH (18:19)
[2018-07-31] MEDS: LIDOCAINE 4% TP SCH (18:20)
[2018-07-31] MEDS: [UNRECOGNIZED DRUG - OTHER] TP SCH (18:20)
[2018-08-01] MEDS: HYDROCODONE/APAP 5/325 TAB PO PRN ×3 (02:25→21:20)
[2018-08-01] MEDS: PATCH REMOVAL 1 EA PATCH TD SCH (05:44)
--- NOTE | 2018-08-01 08:14 | SOAPPROG ---
SOAP Progress Note Assessment/Plan: Assessment/Plan: Assessment/Plan: 73yo M POD#4 s/p sigmoid colectomy for nearly obstructing sigmoid mass with perforation, liver biopsy. Significant liver metastases at time of surgery. No real change since seen yesterday evening. Doing well, but weak, deconditioned , slow to eat. Getting CBC--still having some dark stools. Probably still left over from surgery, but r/o bleeding. Pathology pending. Continue antibiotics for perforation/contamination. Significant CV comorbidities - coronary artery disease, CHF, AAA Appreciate hospitalist and Cardiology management of comorbidities Tolerating regular diet. Going slow. Passing flatus and BMs. Dispo: pending. Maybe to SNF once ready. Alert, oriented, nad mmm no wob abd soft, appropriately ttp, inc cdi 08/01/18 08:14 Objective: Vital Signs Temp Pulse Resp BP Pulse Ox 36.2 C 90 20 156/94 H 97 08/01/18 07:06 08/01/18 07:06 08/01/18 07:06 08/01/18 07:06 08/01/18 07:06 Microbiology 07/26/18 14:37 Blood Culture - Final Blood 07/26/18 14:40 Blood Culture - Final Blood Laboratory Results 07/29/18 03:25 07/29/18 03:25 07/31/18 08/01/18 08/02/18 05:59 05:59 05:59 Intake Total 400 1004 Balance 400 1004 PT 14.7 SEC (12.0-15.0) 07/24/18 03:30 INR 1.20 (0.83-1.16) H 07/24/18 03:30 ICD10 Worksheet Patient Problems: Problems Problem Status Onset Abnormal EKG Acute Anemia Acute Syncope Acute
[2018-08-01] MEDS: ENOXAPARIN 40 MG/0.4 ML SYR SC SCH (08:48)
[2018-08-01] MEDS: ATORVASTATIN CALCIUM 40 MG TAB PO SCH (08:49)
[2018-08-01] MEDS: MULTIVITAMINS 1 EACH TAB PO SCH (08:49)
[2018-08-01] MEDS: FAMOTIDINE 20 MG TAB PO SCH (08:49)
[2018-08-01] MEDS: CARVEDILOL 3.125 MG TAB PO SCH ×2 (08:50→17:47)
[2018-08-01] MEDS: ASPIRIN 81 MG CHEWABLE TAB PO SCH (08:50)
[2018-08-01 09:02] LABS: PLATELET COUNT 446 10^3/uL (150-400)
--- NOTE | 2018-08-01 09:24 | HOSPPROG ---
Hospitalist Progress Note Assessment/Plan: DIAGNOSES: * Colon cancer stage IV with partial obstruction status post partial colectomy; extensive metastases in liver * Suspected perforation and possible intra-abdominal infection, ascites present ; on antibiotics * Postop ileus slowly improving * Pain of cancer, lumbar back pain likely neuropathic in nature (this symptom notably increasing today) * Ischemic cardiomyopathy, with wall motion abnormality seen on echo * CAD with occluded circumflex and 40% lad lesions * HTN * Iron deficiency anemia from his cancer * Marked diffuse muscle wasting and severe weakness in certain muscle groups, likely due to combination of poor food intake over time as well as cancer induced muscle wasting * Vitamin-D deficiency 25-OH 20, newly identified * Severe deconditioning and gait instability due to above * Functional status is significantly decreased due to above which will be important in looking at managing his cancer going forward * COPD/tobacco dependence * A 5.7 cm with mural thrombus, not amenable to endovascular stenting * Hyperlipidemia on statin PLANS: * Continue current antibiotics * Continue to attempt to advance diet; will continue liquid supplements and multiple vitamins * Will add vitamin D at this time as this is now identified as deficient * Due to postop ileus continue IV iron at present; gradual switch to oral when his bowel function improved better * Neurontin added at this time for his back pain, continue p.r.n. [place] and topical lidocaine * Increase mobility ambulation as able, physical occupational therapy * Current plans remain to delay revascularization efforts for coronary disease as long as he remains stable cardiac bell * Aspirin and Lipitor along with beta-sharon are in place * Discharge will be dependent on further recovery of food intake, ambulation and resolution of ileus, stability of his heart; he clearly needs group home rehabilitation and where arranging for that Seen by me on hospitalist rounds and multidisciplinary rounds today SUBJECTIVE: Continues to improve in terms of his abdomen and bowel symptoms Remains quite weak Today notes and significant increase in his lumbar back pain which has been present for 2-3 months; the lungs like a neuropathic pain very likely OBJECTIVE Vitals reviewed: Blood pressure is slightly higher today in good range, otherwise stable without fever Charge Loader, my review: Sinus Exam: alert oriented relaxed, looks tired and mildly uncomfortable skin warm dry color pale resps not labored lungs clear BSs heart regular abd soft nondistended nontender, bowel sounds present a bit high pitched; wounds look good limbs warm, no edema Neuro muscular: Again marked good atrophy of limb muscles and hip sirs with weakness noted iv site ok Lab data: Vitamin-D level low at 20 B12 level high Thiamin level pending Hemoglobin slightly increased 8.9 remains quite low, MCV still low has not started it, yet WBC remains elevated 9.8 Pathology: Moderately differentiated adenocarcinoma from his colonoscopy biopsy of the sigmoid lesion Objective: Vital Signs Temp Pulse Resp BP Pulse Ox 36.2 C 90 20 156/94 H 97 08/01/18 07:06 08/01/18 07:06 08/01/18 07:06 08/01/18 07:06 08/01/18 07:06 Microbiology 07/26/18 14:37 Blood Culture - Final Blood 07/26/18 14:40 Blood Culture - Final Blood Laboratory Results 08/01/18 08:46 07/29/18 03:25 07/31/18 08/01/18 08/02/18 06:59 06:59 06:59 Intake Total 400 1004 Balance 400 1004 PT 14.7 SEC (12.0-15.0) 07/24/18 03:30 INR 1.20 (0.83-1.16) H 07/24/18 03:30 - Time Spent With Patient Time Spent with Patient: greater than 35 minutes Time Spent with Patient: Greater than 35 minutes spent on this patients care, greater than 50% of time spent counseling, educating, and coordinating care regarding the above mentioned plan. ICD10 Worksheet Patient Problems: Problems Problem Status Onset Abnormal EKG Acute Anemia Acute Syncope Acute
[2018-08-01] MEDS ORDERED: CHOLECALCIFEROL VIT D3 2,000 UNITS TAB/CAP PO ONE ×2 (09:35→12:45)
[2018-08-01] MEDS: SODIUM FERRIC GLUCONAT/SUCROSE 125 MG in NS 100 ML IV SCH (10:54)
--- NOTE | 2018-08-01 16:32 | ASMTCMCOM ---
CM Note CM Note Notes: 08/01/2018 Case Management Note Met w/pt to discuss facility options. toured [facility] and requested case management seek authorization. Unfortunately, [facility] is out of network with insurance. Called to discuss. was unable to discuss alternative facilities at this time d/t fatigue from touring SNFs. Faxed updates through [employer] and requested all facilities check to see if they are in network without running auth to clarify decision for . Case Management d/c poc: to be determined. Case Management to follow. Date Signed: 08/01/2018 04:31 PM Electronically Signed By:Sabrina Hamm RN
[2018-08-01] MEDS: NICOTINE 14 MG/24 HR PATCH TD SCH (17:46)
[2018-08-01] MEDS: [UNRECOGNIZED DRUG - OTHER] TP SCH (17:48)
[2018-08-01] MEDS: LIDOCAINE 4% TP SCH (17:48)
[2018-08-01] MEDS: GABAPENTIN 250 MG/5 ML 30 ML BOTTLE PO SCH (21:20)
[2018-08-02] MEDS: ENOXAPARIN 40 MG/0.4 ML SYR SC SCH (09:04)
[2018-08-02] MEDS: CARVEDILOL 3.125 MG TAB PO SCH ×2 (09:05→17:22)
[2018-08-02] MEDS: CHOLECALCIFEROL VIT D3 1,000 UNITS TAB PO SCH (09:05)
[2018-08-02] MEDS: FAMOTIDINE 20 MG TAB PO SCH (09:05)
[2018-08-02] MEDS: ASPIRIN 81 MG CHEWABLE TAB PO SCH (09:05)
[2018-08-02] MEDS: MULTIVITAMINS 1 EACH TAB PO SCH (09:05)
[2018-08-02] MEDS: ATORVASTATIN CALCIUM 40 MG TAB PO SCH (09:05)
[2018-08-02] MEDS: FERROUS SULFATE 325 MG TAB PO SCH ×2 (09:07→21:44)
[2018-08-02] MEDS: PATCH REMOVAL 1 EA PATCH TD SCH (09:07)
--- NOTE | 2018-08-02 09:59 | HOSPPROG ---
Hospitalist Progress Note Assessment/Plan: DIAGNOSES: * New Tachycardia today abrupt onset around 4:45 am, with sinus rate going from 80s to 105-110 and he persists now in sinus tachycardia for the past 5 hr ( there was a very brief 5 second run of SVT during this time, but otherwise he is in a sinus tachycardia) -cause for this is unclear but it seems symptomatic as he is having increased weakness when up on his feet this more * Colon cancer stage IV with partial obstruction status post partial colectomy ; extensive metastases in liver * Suspected perforation due to tumor, and possible intra-abdominal infection, ascites present; on antibiotics * Postop ileus slowly improving * Pain of cancer, lumbar back pain likely neuropathic in nature (this symptom notably increasing today) * Ischemic cardiomyopathy (new at this time) with wall motion abnormality seen on echo * CAD with occluded circumflex and 40% lad lesions * Marked diffuse muscle wasting and severe weakness in certain muscle groups, likely due to combination of poor food intake over time as well as cancer induced muscle wasting, decreased activity * Iron deficiency anemia from his cancer, getting replacement * Vitamin-D deficiency 25-OH 20, newly identified due to cancer with obstruction and poor intake * Severe protein calorie malnutrition * Severe deconditioning and gait instability due to above * Functional status is significantly decreased due to above which will be important in looking at managing his cancer going forward * COPD/tobacco dependence * A 5.7 cm with mural thrombus, not amenable to endovascular stenting - management of this will depend on his overall cancer prognosis once he is able to work with Oncology * Hyperlipidemia on statin PLANS: * As evaluation for causes of tachycardia I have ordered: met panel, cbc, bladder US, CXR, orthostatic vital signs; will review these and make further plans for eval/tx after * Continue current antibiotics * Continue to attempt to advance diet * continue Vit D supplement for deficiency * continue multivits and liquid nutrition supplement; continue advance regular diet as able * cotinue iron replacement (has had 3 days of IV now on oral) * Neurontin added at this time for his back pain, continue p.r.n. [place] and topical lidocaine * Increase mobility ambulation as able, physical occupational therapy; fall risk precautions * Current plans remain to delay revascularization efforts for coronary disease as long as he remains stable cardiac bell * Aspirin and Lipitor along with beta-sharon are in place * Discharge will be dependent on further recovery of food intake, ambulation and resolution of ileus, stability of his heart; he clearly needs long-term rehabilitation and where arranging for that DISPOSITION: Plans will be for him to go to long-term facility once he is stable for discharge Seen by me on hospitalist rounds and multidisciplinary rounds today SUBJECTIVE: Today pt and nurse note he was a good bit weaker and needing more assist to ambulate to commode Continues to improve in terms of his abdomen and bowel symptoms, eating slightly better OBJECTIVE Vitals reviewed: Blood pressure is slightly higher today in good range, otherwise stable without fever Dredging Inspector, my review: Sinus Exam: alert oriented relaxed, looks tired and mildly uncomfortable skin warm dry color pale resps not labored lungs clear BSs heart regular abd soft nondistended nontender, bowel sounds present a bit high pitched; wounds look good limbs warm, no edema Neuro muscular: Again marked good atrophy of limb muscles and hip sirs with weakness noted iv site ok Lab data: Vitamin-D level low at 20 B12 level high Thiamin level pending Hemoglobin slightly increased 8.9 remains quite low, MCV still low has not started it, yet WBC remains elevated 9.8 Pathology: Moderately differentiated adenocarcinoma from his colonoscopy biopsy of the sigmoid lesion Objective: Vital Signs Temp Pulse Resp BP Pulse Ox 36.6 C 111 H 14 148/93 H 94 08/02/18 07:57 08/02/18 07:57 08/02/18 07:57 08/02/18 07:57 08/02/18 07:57 Microbiology 07/26/18 14:37 Blood Culture - Final Blood 07/26/18 14:40 Blood Culture - Final Blood Laboratory Results 08/01/18 08:46 07/29/18 03:25 08/01/18 08/02/18 08/03/18 06:59 06:59 06:59 Intake Total 1004 155 Output Total 750 Balance 1004 -595 PT 14.7 SEC (12.0-15.0) 07/24/18 03:30 INR 1.20 (0.83-1.16) H 07/24/18 03:30 - Time Spent With Patient Time Spent with Patient: greater than 35 minutes Time Spent with Patient: Greater than 35 minutes spent on this patients care, greater than 50% of time spent counseling, educating, and coordinating care regarding the above mentioned plan. ICD10 Worksheet Patient Problems: Problems Problem Status Onset Abnormal EKG Acute Anemia Acute Syncope Acute
--- NOTE | 2018-08-02 10:06 | SOAPPROG ---
SOAP Progress Note Assessment/Plan: Assessment/Plan: 73yo M POD#3 s/p sigmoid colectomy for nearly obstructing sigmoid mass with perforation, liver biopsy. Significant liver metastases at time of surgery. Pathology reveals adenocarcinoma of colon with 4 positive LNs, liver bx positive for mets. Will stop abx. Significant CV comorbidities - coronary artery disease, CHF, AAA Appreciate hospitalist and Cardiology management of comorbidities Tolerating regular diet. Going slow. Passing some flatus and had BM last night , but still distended. Will order [address] way abdomen this am. S: Tolerating regular diet, but not eating much. Reports his stomach fills up quickly and he doesn't have an appetite. Had loose BM last night that was not bloody. O: Alert Afebrile CTAB, no increased WOB Abdomen: Normoactive bowel sounds. Distended but soft, non tender. Incision CDI Skin: Warm and dry. Psych: Mood and affect normal Neuro: Grossly intact 08/02/18 10:01 Objective: Vital Signs Temp Pulse Resp BP Pulse Ox 36.6 C 111 H 14 148/93 H 94 08/02/18 07:57 08/02/18 07:57 08/02/18 07:57 08/02/18 07:57 08/02/18 07:57 Microbiology 07/26/18 14:37 Blood Culture - Final Blood 07/26/18 14:40 Blood Culture - Final Blood Laboratory Results 08/02/18 09:45 08/01/18 08/02/18 08/03/18 05:59 05:59 05:59 Intake Total 1004 155 Output Total 750 Balance 1004 -595 PT 14.7 SEC (12.0-15.0) 07/24/18 03:30 INR 1.20 (0.83-1.16) H 07/24/18 03:30 ICD10 Worksheet Patient Problems: Problems Problem Status Onset Abnormal EKG Acute Anemia Acute Syncope Acute
--- NOTE | 2018-08-02 11:24 | PDGENHP ---
History & Physical Chief Complaint: COLON CANCER History of Present Illness: 73-YEAR-OLD MALE WHO WAS ADMITTED FOR SYNCOPAL EPISODE AND FOUND TO BE ANEMIC WITH HEMATOCRIT 28. RECENT COLONOSCOPY IS DISCOVERED A NEARLY OBSTRUCTING SIGMOID CANCER. THE SCOPE COULD NOT BE PASSED THROUGH THIS AREA. PATIENT HAS A HISTORY OF SEVERE CONSTIPATION AND ASSOCIATED SEVERE LOW BACK PAIN. HE HAS NO FURTHER WORKUP WAS HERE ALSO TO BE EVALUATED FOR CHRONIC CONGESTIVE HEART FAILURE. WITH THE FINDINGS OF NEARLY OBSTRUCTING COLON CANCER HE WILL NEED URGENT SURGERY. RISKS AND OPTIONS BEEN FULLY DISCUSSED AND HE WISHES TO PROCEED Pertinent Past, Social, Family History: PAST MEDICAL HISTORY TONSILLECTOMY NO OTHER MAJOR HOSPITALIZATIONS OR SURGERIES. MEDICATIONS NONE. ALLERGIES NONE. REVIEW OF SYSTEMS -10 POINT REVIEW EXCEPT RELATED TO THE HPI AND PAST HISTORY. 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 FAMILY HISTORY: PARKINSON' S. SOCIAL HISTORY Relevant Physical Exam: GENERAL WEAK 73-YEAR-OLD MALE IN NO ACUTE DISTRESS, AFEBRILE. HEENT NONICTERIC WITHOUT ADENOPATHY, PERRLA, NO ORAL LESIONS. NECK SUPPLE FULL RANGE OF MOTION NO BRUITS. CHEST CLEAR AND SYMMETRIC. COR REGULAR RHYTHM WITHOUT MURMURS. ABDOMEN SOFT NONTENDER WITHOUT MASSES OR HERNIAS HE IS THE SCAPHOID AND THIN. GENITALIA NORMAL. RECTAL EXAM REVEALS HEME-POSITIVE STOOL BUT NO PALPABLE MASS. EXTREMITIES FULL RANGE OF MOTION FULL PULSES. NEURO EXAM PHYSIOLOGIC. PSYCH EXAM ORIENTED, ALERT, COOPERATIVE Cardiorespiratory Assessment: IMPRESSION: OBSTRUCTING SIGMOID COLON CANCER. PLAN: LAPAROSCOPIC SIGMOID COLECTOMY. RISKS AND OPTIONS BEEN FULLY DISCUSSED INCLUDING POSSIBLE NEED FOR TEMPORARY COLOSTOMY AND HE WISHES TO PROCEED
[2018-08-02] MEDS ORDERED: NS 1,000 ML IV ONE (13:08)
--- NOTE | 2018-08-02 15:58 | ASMTCMCOM ---
CM Note CM Note Notes: 08/02/2018 Case Management Note Discussed pt during rounds this morning. Angie from [facility] met w/pt Linnette. Angie confirmed insurance will cover rehab stay. Linnette toured facility and is comfortable. Case Management d/c poc: [facility] Case Management to follow. Date Signed: 08/02/2018 03:58 PM Electronically Signed By:Sabrina Hamm RN
[2018-08-02] MEDS: NICOTINE 14 MG/24 HR PATCH TD SCH (17:22)
[2018-08-02] MEDS: ACETAMINOPHEN 325 MG TAB PO PRN (17:22)
[2018-08-02] MEDS: LIDOCAINE 4% TP SCH (17:37)
[2018-08-02] MEDS: [UNRECOGNIZED DRUG - OTHER] TP SCH (17:37)
[2018-08-02] MEDS: HYDROCODONE/APAP 5/325 TAB PO PRN (21:48)
[2018-08-02] MEDS: GABAPENTIN 250 MG/5 ML 30 ML BOTTLE PO SCH (21:58)
[2018-08-03] MEDS: HYDROCODONE/APAP 5/325 TAB PO PRN ×4 (01:26→20:36)
[2018-08-03] MEDS: PATCH REMOVAL 1 EA PATCH TD SCH (06:21)
[2018-08-03 09:23] LABS: PLATELET COUNT 357 10^3/uL (150-400)
[2018-08-03] MEDS: ASPIRIN 81 MG CHEWABLE TAB PO SCH (09:54)
[2018-08-03] MEDS: CHOLECALCIFEROL VIT D3 1,000 UNITS TAB PO SCH (09:54)
[2018-08-03] MEDS: ATORVASTATIN CALCIUM 40 MG TAB PO SCH (09:54)
[2018-08-03] MEDS: FAMOTIDINE 20 MG TAB PO SCH (09:54)
[2018-08-03] MEDS: CARVEDILOL 3.125 MG TAB PO SCH ×2 (09:54→17:55)
[2018-08-03] MEDS: ENOXAPARIN 40 MG/0.4 ML SYR SC SCH (09:55)
[2018-08-03] MEDS: FERROUS SULFATE 325 MG TAB PO SCH ×2 (09:55→20:36)
[2018-08-03] MEDS: MULTIVITAMINS 1 EACH TAB PO SCH (09:55)
--- NOTE | 2018-08-03 12:19 | SOAPPROG ---
SOAP Progress Note Assessment/Plan: Assessment: This is a 73-year-old male with history of metastatic colon cancer. 1. Metastatic colon cancer, stage IV: He understands the natural history of stage IV disease. He understands this is incurable. Our efforts would be for life prolongation the palliation. He would like to follow up with Dr. Stef Smith at our [facility] office in [place]. 2. Postop ileus: Per primary team 3. Anemia, microcytic: Likely from a chronic blood loss although his ferritin was normal. 08/03/18 12:17 Subjective: No acute events overnight. Still not passing bowel movements. No chest pain or shortness of breath. Objective: Vital Signs Temp Pulse Resp BP Pulse Ox 36.7 C 87 18 111/64 93 08/03/18 11:55 08/03/18 11:55 08/03/18 11:55 08/03/18 11:55 08/03/18 11:55 Laboratory Results 08/03/18 08:47 08/02/18 09:45 08/02/18 08/03/18 08/04/18 05:59 05:59 05:59 Intake Total 155 1769 Output Total 750 350 Balance -595 1419 PT 14.7 SEC (12.0-15.0) 07/24/18 03:30 INR 1.20 (0.83-1.16) H 07/24/18 03:30 General: Appears stated age in no acute distress HEENT: Dry mucous membranes, nasal cannula in place, oropharynx is clear Cardiovascular: Regular rate and rhythm Pulmonary: Clear to auscultation Abdomen: Diminished bowel sounds, nontender nondistended no rebound, incision is without evidence of bleeding Extremities: No cyanosis clubbing or edema Psych: Appropriate affect ICD10 Worksheet Patient Problems: Problems Problem Status Onset Abnormal EKG Acute Anemia Acute Syncope Acute
--- NOTE | 2018-08-03 12:55 | SOAPPROG ---
SOAP Progress Note Assessment/Plan: Assessment/Plan: 73yo M POD#3 s/p sigmoid colectomy for nearly obstructing sigmoid mass with perforation, liver biopsy. Significant liver metastases at time of surgery. Pathology reveals adenocarcinoma of colon with 4 positive LNs, liver bx positive for mets. Significant CV comorbidities - coronary artery disease, CHF, AAA Appreciate hospitalist and Cardiology management of comorbidities Postop ileus. Less distended today. Passed gas last night and this am. New RLQ pain. Continue to watch. WBC up to 11.5 today. Likely due to possible aspiration pna. Will watch. Dispo: pending clinical course. Recommend one more night in hospital to follow WBC and pain. S: Passed gas last night and this am. Has more of an appetite and eating more. Does endorse new RLQ pain. Not sure if it is relieved by passing gas. O: Alert Afebrile CTAB, no increased WOB Abdomen: Normoactive bowel sounds. Distended but soft, non tender. Incision CDI Skin: Warm and dry. Psych: Mood and affect normal Neuro: Grossly intact 08/03/18 12:51 Objective: Vital Signs Temp Pulse Resp BP Pulse Ox 36.7 C 87 18 111/64 93 08/03/18 11:55 08/03/18 11:55 08/03/18 11:55 08/03/18 11:55 08/03/18 11:55 Laboratory Results 08/03/18 08:47 08/02/18 09:45 08/02/18 08/03/18 08/04/18 05:59 05:59 05:59 Intake Total 155 1769 Output Total 750 350 Balance -595 1419 PT 14.7 SEC (12.0-15.0) 07/24/18 03:30 INR 1.20 (0.83-1.16) H 07/24/18 03:30 ICD10 Worksheet Patient Problems: Problems Problem Status Onset Abnormal EKG Acute Anemia Acute Syncope Acute
--- NOTE | 2018-08-03 14:17 | HOSPPROG ---
Hospitalist Progress Note Assessment/Plan: 73 year old male with stage 4 colon cancer admitted with obstruction, now status post partial colectomy. * Colon cancer with near obstructing mass at sigmoid, with small perf -s/p resection -IV ceftriaxone/flagyl given perforation (stopped 08/02) -Surgery following. *Post Op Ileus- Small BM today. plain film reviewed with mild gasseous distention which could represent mild ileus. -minimize narcotics -out of bed -bowel regimen * Hepatic mets -per oncology prognosis is 3-5 years -patient will follow up with Dr. Smith at [place] * Ascites - possibly malignant * Acute systolic CHF - EF 35% -due to ischemia * CAD with occluded circumflex -stenting delayed due to need for GI surgery -coreg -watch for signs of ischemic indira-operatively -oncology favors proceeding with stent -d/w Dr. Ryan - follow-up 3-4 weeks for outpatient cath once recovered from surgery -no strenuous activity until after stent placement * Tobacco dependence/COPD -patch * Back pain -resolved with resection of sigmoid mass - suggests back pain related to malignancy * Hyperlipidemia -statin * AAA 5.7 cm with mural thrombus -not amenable to endovascular stent *Fluids- PO, although this may need to be restarted if his PO intake doesnt increase *Lytes- WNL *Nutrition- regular *Cor- Full *Dispo- remain inpatient. Possible DC 1-2 days if taking pO, bowels moving. Subjective: mild lower ab pain. A little distended. no other complaints. not really eating well. Objective: Vital Signs Temp Pulse Resp BP Pulse Ox 36.7 C 87 18 111/64 93 08/03/18 11:55 08/03/18 11:55 08/03/18 11:55 08/03/18 11:55 08/03/18 11:55 Laboratory Results 08/03/18 08:47 08/02/18 09:45 08/02/18 08/03/18 08/04/18 05:59 05:59 05:59 Intake Total 155 1769 Output Total 750 350 200 Balance -595 1419 -200 PT 14.7 SEC (12.0-15.0) 07/24/18 03:30 INR 1.20 (0.83-1.16) H 07/24/18 03:30 - Physical Exam Constitutional: no apparent distress, appears nourished, not in pain Eyes: PERRL, anicteric sclera, EOMI Ears, Nose, Mouth, Throat: moist mucous membranes, hearing normal, ears appear normal, no oral mucosal ulcers Cardiovascular: regular rate and rhythym, no murmur, rub, or gallop Respiratory: no respiratory distress, no rales or rhonchi, clear to auscultation Gastrointestinal: soft, non-tender abdomen, no palpable masses, distension Genitourinary: no bladder fullness, no bladder tenderness, no renal bruits Skin: no rashes or abrasions, no fluctuance, no induration Musculoskeletal: full muscle strength, no muscle tenderness, normal joint ROM Neurologic: AAOx3, sensation intact bilaterally Psychiatric: interacting appropriately, not anxious, not encephalopathic, thought process linear Lymph, Heme, Immunologic: no cervical LAD, no supraclavicular LAD ICD10 Worksheet Patient Problems: Problems Problem Status Onset Abnormal EKG Acute Anemia Acute Syncope Acute
[2018-08-03] MEDS: NICOTINE 14 MG/24 HR PATCH TD SCH (17:55)
[2018-08-03] MEDS: LIDOCAINE 4% TP SCH (17:56)
[2018-08-03] MEDS: [UNRECOGNIZED DRUG - OTHER] TP SCH (17:56)
[2018-08-03] MEDS: GABAPENTIN 250 MG/5 ML 30 ML BOTTLE PO SCH (20:36)
[2018-08-04 04:11] LABS: PLATELET COUNT 318 10^3/uL (150-400)
[2018-08-04] MEDS: PATCH REMOVAL 1 EA PATCH TD SCH (05:33)
[2018-08-04] MEDS: ENOXAPARIN 40 MG/0.4 ML SYR SC SCH (09:30)
[2018-08-04] MEDS: FERROUS SULFATE 325 MG TAB PO SCH (09:30)
[2018-08-04] MEDS: MULTIVITAMINS 1 EACH TAB PO SCH (09:30)
[2018-08-04] MEDS: ACETAMINOPHEN 325 MG TAB PO PRN (09:30)
[2018-08-04] MEDS: CARVEDILOL 3.125 MG TAB PO SCH (09:30)
[2018-08-04] MEDS: ATORVASTATIN CALCIUM 40 MG TAB PO SCH (09:30)
[2018-08-04] MEDS: ASPIRIN 81 MG CHEWABLE TAB PO SCH (09:30)
[2018-08-04] MEDS: FAMOTIDINE 20 MG TAB PO SCH (09:30)
[2018-08-04] MEDS: CHOLECALCIFEROL VIT D3 1,000 UNITS TAB PO SCH (09:30)
--- NOTE | 2018-08-04 11:52 | SOAPPROG ---
SOAP Progress Note Assessment/Plan: E&M for metastatic colon cancer. * Metastatic colon cancer, stage IV: He has an understanding of the underlying disease. He is going to follow-up with Dr. Smith in [place] to discuss palliative options. * Postop ileus: Resolved * Anemia, microcytic: With normal ferritin it could also be a form of anemia chronic disease. This will be managed outpatient. Subjective: He is feeling better and going home today. He has a follow-up appointment with Dr. Smith in a couple weeks. Objective: Vital Signs Temp Pulse Resp BP Pulse Ox 36.8 C 117 H 22 H 138/98 H 90 L 08/04/18 08:00 08/04/18 09:30 08/04/18 08:00 08/04/18 09:30 08/04/18 08:00 Laboratory Results 08/04/18 03:14 08/04/18 03:14 08/03/18 08/04/18 08/05/18 05:59 05:59 05:59 Intake Total 1769 200 Output Total 350 900 75 Balance 1419 -700 -75 PT 14.7 SEC (12.0-15.0) 07/24/18 03:30 INR 1.20 (0.83-1.16) H 07/24/18 03:30 Physical Exam - Physical Exam General Appearance: no apparent distress Abdomen: normal bowel sounds, non-tender, soft ICD10 Worksheet Patient Problems: Problems Problem Status Onset Abnormal EKG Acute Anemia Acute Syncope Acute
--- NOTE | 2018-08-04 14:03 | PDIAF ---
- Diagnosis Diagnosis: stage 4 colon cancer with obstruction, CAD. Code Status: Full Code - Medication Management Additional Medication Instructions: would use lovenox for DVT prophylaxis until patient is ambulating enought to warrant discontinuation of this. Discharge Medications: electronically signed and located in the Home Medication List. - Orders Services needed: Registered Nurse, Physical Therapy, Occupational Therapy Isolation Type: None Diet Recommendation: cardiac -low fat low salt Diet Texture: Regular Texture Diet Additional Instructions: trimmer sorter PT OT will be provided by [facility] ([facility]) They will call you at home to set up an appointment. [facility] phone: [phone] [facility] in 2-3 weeks for further evaluation of your coronary artery disease. Follow up with your PCP in the next 1-2 weeks - Labs/Radiology CBC w/diff Date: 08/07/18 (ensure H/H stable. ) - Follow Up Care Current Providers and Referrals: Patient,NotPresent [Unknown] - As per Instructions
--- NOTE | 2018-08-04 14:35 | ASMTLACE ---
[facility] Length of stay for Answers: 7-13 days current admission Comorbidities - select Answers: Other Notes: colon Ca,met to liver all that apply # of Emergency department Answers: 1-2 visits in the last 6 months Score: 7 Date Signed: 08/04/2018 02:34 PM Electronically Signed By:Suzi Kohli
--- NOTE | 2018-08-04 14:39 | ASMTCMCOM ---
CM Note CM Note Notes: Pt discussed in rounds and met with Pt w for discharge planning. Pt accepted to [facility] and will transfer there at 1645. Pt and aware. Updated discharge paper work sent to [facility]. RN and MD updated. CM available for needs. PLAN Discharge to [facility]. Date Signed: 08/04/2018 02:39 PM Electronically Signed By:Suzi Kohli
[2018-08-04 14:51] VITALS: BP 99/64
[2018-08-04] MEDS: NICOTINE 14 MG/24 HR PATCH TD SCH (17:00)
--- NOTE | 2018-08-04 17:29 | PDDCSUM ---
Discharge Summary Discharge Summary: Discharge diagnosis Stage IV metastatic colon cancer Obstructing mass Postop ileus Bowel perforation Hepatic Mets Acute congestive heart failure with LVEF of 35% Coronary artery disease with occluded circumflex artery AAA of 5.7 cm not amenable to stenting The patient was admitted with a presyncopal event. Echo in the morning was suggestive of ischemia and so Cardiology was consulted. He ended up undergoing a left heart catheterization which showed an occluded circumflex. Cardiology wanted colonoscopy for further evaluation of anemia and constipation prior to placing patient on anticoagulants. GI was consulted and he underwent a colonoscopy and endoscopy. Colonoscopy found obstructing sigmoid mass which they were not able to pass with the scope. Free air and a large mass was found on CT along with liver mets and likely a malignant ascites. General surgery was consulted urgently for resection of the sigmoid mass. He was started on antibiotics for treatment of the bowel perforation. He underwent resection of the sigmoid colon mass with reanastomosis. Oncology was consulted who explain the patient's prognosis was 3-5 years. He developed a postoperative ileus that did eventually resolve. [facility] and ultimately follow up with Oncology along with Cardiology for probable left heart catheterization for his occluded circumflex artery. Disposition [facility] Follow-up Oncology Cardiology I spent over 30 min on the discharge of this patient.
--- NOTE | 2018-08-04 22:00 | GOP ---
[f rep st] OPERATIVE REPORT DATE OF OPERATION: 07/27/2018 SURGEON: Jarad Bell MD PLUG CUTTER: Shanna White NP. ANESTHESIOLOGIST: Dr. Raymond. PREOPERATIVE DIAGNOSIS: Obstructing colon carcinoma. POSTOPERATIVE DIAGNOSIS: Metastatic colon cancer with obstructing sigmoid cancer. PROCEDURE PERFORMED: 1. Laparoscopic excision of liver mass. 2. Laparoscopic anterior sigmoid resection with splenic flexure mobilization and low anterior anasto mosis. FINDINGS: Patient was found to have a perforated sigmoid with an obstructing carcinoma which was adh erent to the retroperitoneum near the sacral prominence. There were positive lymph nodes apparent. There were also multiple metastatic nodules in the liver. There was no free perforation or contamina tion in the abdomen. DESCRIPTION OF PROCEDURE: Patient was taken to the operating room where he received satisfactory gen eral endotracheal anesthesia by Dr. Raymond. He was placed in supine position in low stirrups, prepped and draped in the usual sterile fashion. A periumbilical incision was made. A Veress needle was in serted. Pneumoperitoneum was established. Trocar was introduced. Laparoscope introduced. Good vis ualization was obtained. Three other trocars were placed in the lower abdomen under direct vision. Sigmoid colon was mobilized. First noticed was diffuse liver metastases. Excision of one of these n odules was accomplished with the Harmonic Scalpel. The specimen was placed in a specimen bag and ext racted through one of the port sites and sent to Pathology. Hemostasis was assured with electrocaute ry and with the Harmonic Scalpel. Attention was then turned back to the sigmoid colon which was mobilized by dividing the lateral perit osman reflection. The mass was apparent. The small bowel was freed up from the area and reduced. T he mesocolon was divided with the Harmonic Scalpel down to the sacral prominence and into the presacr al space. The left colon was mobilized. Dissection extended up around the hepatic flexure and into the transverse colon, allowing free mobility of the sigmoid segment. The mesentery was divided with the Harmonic Scalpel. Both ureters were identified and spared from injury, although the left area wa s quite close to the penetrating tumor into the retroperitoneum. After the mass in the mesentery was elevated, the rectosigmoid junction was freed posteriorly and then divided with an Endo PATRICIA stapler. The proximal colon was further mobilized by dividing the mesentery, and the colon was able to be mo bilized to reach down to the pelvis. At that point, a short incision was made in the suprapubic area and then vertically from an old incision. Dissection extended into the abdomen. The proximal colon was brought out through this opening, which was protected with a wound protector. A pursestring sut ure was placed proximally, and the colon was then divided and the specimen was sent to Pathology. A 29 EEA stapler was fashioned for the proximal end and secured with pursestring suture. The wound was temporarily closed and pneumoperitoneum was reestablished. The EEA was introduced through the anus, and an end-to-end anastomosis was then done with the proximal colon. Stapler was closed and fired. Good anastomotic rings were seen. The anastomosis was tested under water, however, and there appear ed to be an air leak. Retractors were replaced in the lower incision, which was slightly enlarged an d exposing the rectal sigmoid anastomosis. The anterior wall was re-sutured 3-0 silk interrupted sut ures, specifically, closing the single area that was leaking between the staple lines. The area was retested and appeared to be quite airtight. The wound was irrigated. Hemostasis was assured. The l iver biopsy site was rechecked and appeared to be hemostatic. Trocars were removed under direct visi on. Clean closure setup was then used, and the abdomen was closed with a running #1 PDS suture for t he linea alba, 3-0 Vicryl for the subcu, skin danisha for the skin. Trocar sites were closed with 4- 0 Monocryl subcuticular sutures and/or 3-0 Vicryl for the fascia where needed. All wounds were infil trated with Marcaine. He tolerated the procedure well, was taken to the recovery room in g ood condition. /[id number]/MODL
== END 2018-08-04 17:07 | DRG 329 ==
LOC: F2W 07-23 01:33 → OBSVTOIN 07-24 17:37
PROVIDERS: ADMIT Student in an Organized Health Care Education/Training Program; ATTEND Student in an Organized Health Care Education/Training Program
PROC: B2111ZZ Fluoroscopy of Multiple Coronary Arteries using Low Osmolar Contrast (ICD-10-PCS; 2018-07-24)
PROC: 4A023N8 Measurement of Cardiac Sampling and Pressure, Bilateral, Percutaneous Approach (ICD-10-PCS; 2018-07-24)
PROC: B2151ZZ Fluoroscopy of Left Heart using Low Osmolar Contrast (ICD-10-PCS; 2018-07-24)
PROC: 0DB58ZX Excision of Esophagus, Via Natural or Artificial Opening Endoscopic, Diagnostic (ICD-10-PCS; 2018-07-26 11:30)
PROC: 0DB98ZX Excision of Duodenum, Via Natural or Artificial Opening Endoscopic, Diagnostic (ICD-10-PCS; 2018-07-26 11:30)
PROC: 0DB68ZX Excision of Stomach, Via Natural or Artificial Opening Endoscopic, Diagnostic (ICD-10-PCS; 2018-07-26 11:30)
PROC: 0DBN8ZX Excision of Sigmoid Colon, Via Natural or Artificial Opening Endoscopic, Diagnostic (ICD-10-PCS; 2018-07-26 11:30)
PROC: 0FB04ZX Excision of Liver, Percutaneous Endoscopic Approach, Diagnostic (ICD-10-PCS; principal; 2018-07-27 10:00)
PROC: 0DTN4ZZ Resection of Sigmoid Colon, Percutaneous Endoscopic Approach (ICD-10-PCS; principal; 2018-07-27 10:00)
DX: C18.7 Malignant neoplasm of sigmoid colon (principal); K63.1 Perforation of intestine (nontraumatic); I50.21 Acute systolic (congestive) heart failure; C78.7 Secondary malignant neoplasm of liver and intrahepatic bile duct; R18.0 Malignant ascites; K91.89 Other postprocedural complications and disorders of digestive system; I25.5 Ischemic cardiomyopathy; I25.10 Atherosclerotic heart disease of native coronary artery without angina pectoris; I71.4 Abdominal aortic aneurysm, without rupture; D50.8 Other iron deficiency anemias; E86.9 Volume depletion, unspecified; N40.0 Benign prostatic hyperplasia without lower urinary tract symptoms; F17.200 Nicotine dependence, unspecified, uncomplicated; J44.9 Chronic obstructive pulmonary disease, unspecified; E55.9 Vitamin D deficiency, unspecified; E78.5 Hyperlipidemia, unspecified; Z80.3 Family history of malignant neoplasm of breast
CPT/HCPCS: 82607-90; 84252-90; 84484-ER; 97110-GP; 97116-GP; 97161-GP; 97166-GO; 97530-GP; 97535-GO; C1726; C1769; G0378; J0171; J0694; J0696; J1100; J1170; J1644; J1650; J2250; J2405; J2704; J2795; J2916; J3010; Q9967

== ENCOUNTER 2018-08-11 09:54 | Inpatient (IN) | payer OTHER ==
--- NOTE | 2018-08-11 10:32 | EDPHY ---
H & P Stated Complaint: "needs stent placement" Time Seen by Provider: 08/11/18 10:07 HPI/ROS: CHIEF COMPLAINT: Fatigue, shortness of breath, exercise intolerance HISTORY OF PRESENT ILLNESS: This is a 73-year-old gentleman was discharged from this hospital on the 04 of August following a complicated inpatient course. Patient had been admitted on July 24 following a presyncopal event. Echocardiogram suggested ischemia and patient had a angiogram which demonstrated an occluded circumflex. Patient also was noted to be quite anemic and had a history of constipation. Patient was found have an obstructing sigmoid mass, stage IV metastatic colon cancer, with liver metastases. Patient had resection of the sigmoid mass and a colectomy. Patient had been discharged to shelter facility with oncology and cardiology follow up. Plan for possible stent placement after he has regained some strength. Patient has been noted over the last 2-3 days to be having increasing exercise intolerance, has been unable to complete his rehab, has resting tachycardia, and is also felt to be dehydrated. I did received a call from the PA who states that yesterday the patient's potassium was 5.7 with a sodium of 128. On arrival the patient denies any chest pain. He himself denies significant shortness of breath but states that he just is so weak and tired he cannot do rehab. Denies any abdominal discomfort, vomiting, or constipation. Of note, patient was initially discharged with O2 at 2.5 L, however he has gradually increased it secondary to fatigue and some shortness of breath. On arrival to the emergency department he is on 4 L of O2. No fevers. REVIEW OF SYSTEMS: A comprehensive 10 system review of systems was reviewed and is otherwise negative aside from elements mentioned in the history of present illness and medical decision making. PAST MEDICAL HISTORY: Stage IV metastatic colon cancer status post colectomy, acute congestive heart failure, coronary artery disease with occluding circumflex artery. Patient currently is [facility] as the rehab facility. SOCIAL HISTORY: Currently residing at [facility] rehab facility. Smoker. VITAL SIGNS Reviewed by me. GENERAL: Pleasant, well-developed, well-nourished, resting comfortably in no respiratory distress. HEENT: Atraumatic. Eyes: No icterus, no injection. Mouth: moist mucous membranes. No erythema or lesions. Neck: supple with no adenopathy. LUNGS: Breath sounds are diminished at the bases. Otherwise clear. CARDIAC: Regular rate and rhythm, no rubs, murmurs or gallops. ABDOMEN: Soft, healing incisions and laparoscopic sites. No guarding or rebound. No distension. BACK: No CVA tenderness. EXTREMITIES: No trauma. Moderate pitting edema at the ankles and caths.. NEURO: Alert and oriented, grossly nonfocal. SKIN: Warm and dry, no rash. PSYCHIATRIC: Normal mentation, no agitation. 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 - Social History Smoking Status: Former smoker Constitutional: Initial Vital Signs Temperature (C) 36.7 C 08/11/18 09:57 Heart Rate 90 08/11/18 09:57 Respiratory Rate 18 08/11/18 09:57 Blood Pressure 114/78 08/11/18 09:57 O2 Delivery Mode Nasal Cannula O2 (L/minute) 2.5 Allergies/Adverse Reactions: No Known Allergies Allergy (Verified 07/23/18 09:49) Home Medications: Medication Instructions Recorded Acetaminophen [Tylenol 325mg (*)] 650 mg PO DAILY PRN 07/23/18 Aspercreme With Lidocaine 4% 1 chuck TP TID 07/23/18 Aspirin [Aspirin 81mg (*)] 81 mg PO DAILY 07/23/18 Carvedilol [Coreg (*)] 3.125 mg PO BIDMEAL tab 08/04/18 Enoxaparin [Lovenox 40 MG (*)] 40 mg SC DAILY syr 08/04/18 Famotidine [Pepcid 20 MG (*)] 20 mg PO DAILY tab 08/04/18 Ferrous Sulfate [Ferrous Sulf 325 325 mg PO BID tab 08/04/18 MG (*)] Nicotine [Nicoderm Cq 14 mg (*)] 14 mg TD DAILY@1800 patch 08/04/18 Nitroglycerin [Nitrostat 0.4 mg 0.4 mg SL PRN PRN btl 08/04/18 (*)] Acetaminophen [Tylenol 325mg (*)] 650 mg PO TID 08/11/18 Atorvastatin Calcium [Lipitor 40 40 mg PO HS 08/11/18 mg (*)] Docusate Sodium [Colace 100 MG (*)] 100 mg PO BID 08/11/18 Gabapentin [Neurontin 300 MG (*)] 300 mg PO HS 08/11/18 Melatonin [Melatonin 5 mg] 5 mg PO HS 08/11/18 Oxycodone HCl 5 mg PO Q6H PRN 08/11/18 Medical Decision Making - Diagnostics EKG Interpretation: 12-LEAD EKG: Please see the full report in [facility]. My interpretation: Low voltage in the limb leads. No ischemic changes. Imaging Results: Imaging Impressions Chest X-Ray 08/11/18 10:09 Impression: 1. Findings consistent with emphysema/airways disease. 2. Mild cardiac enlargement without pulmonary edema. 3. Pulmonary nodularity was more optimally demonstrated on chest study. 4. Bilateral pleural effusions. Xray: Chest x-ray was obtained. I viewed the images myself on the PACS system. My interpretation of the images is: Pleural effusions. The radiology interpretation is: Pending. Imaging: I viewed and interpreted images myself ED Course/Re-evaluation: EKG ordered, bedside troponin ordered, chest x-ray ordered. EKG demonstrates no acute ischemic changes. Bedside troponin is 0.02. Chest x- ray demonstrates bilateral pleural effusions. Review of the labs demonstrate sodium of 126 (previously 133 range) and a BUN 28 (previously 7-8). Patient's course was discussed with the hospitalist service. Patient was readmitted to the hospital for the increasing fatigue, worsening heart failure. 1151: Patient noted to have a run of ventricular tachycardia, 11 beats, nonsustained ventricular tachycardia. Course was discussed with Dr. Quiñones while from Cardiology. Specifically discussed the anti arrhythmic medications such as lidocaine or amiodarone. Dr. Quiñones will evaluate the patient. Hospitalist service also updated regarding the patient's V-tach. Differential Diagnosis: Differential diagnosis of the patient's presenting complaints was considered including but not limited to electrolyte abnormality, anemia, cardiac ischemia, pneumonia, congestive heart failure, pulmonary edema, acute coronary syndrome. Consult/Admit Bed Type: Dr. Chew Uvaldo - Data Points Laboratory Results: Laboratory Results 08/11/18 10:20 08/11/18 10:20 08/11/18 08/11/18 08/11/18 10:29 10:20 10:20 WBC RBC Hgb Hct MCV MCH MCHC RDW Plt Count MPV Neut % (Auto) Lymph % (Auto) [place] % (Auto) Eos % (Auto) Baso % (Auto) Nucleat RBC Rel Count Absolute Neuts (auto) Absolute Lymphs (auto) Absolute Monos (auto) Absolute Eos (auto) Absolute Basos (auto) Absolute Nucleated RBC Immature Gran % Immature Gran # Platelet Estimate Hypochromasia Tear Drop Cells Oval Macrocytes Schistocytes PT 15.2 SEC H SEC (12.0-15.0) INR 1.25 H (0.83-1.16) Sodium Potassium Chloride Carbon Dioxide Anion Gap BUN Creatinine Estimated GFR Glucose Calcium Total Bilirubin 0.9 mg/dL mg/dL (0.1-1.4) Conjugated Bilirubin 0.8 mg/dL H mg/dL (0.0-0.5) Unconjugated Bilirubin 0.1 mg/dL mg/dL (0.0-1.1) AST 112 IU/L H IU/L (17-59) ALT 39 IU/L IU/L (21-72) Alkaline Phosphatase 1292 IU/L H IU/L (38-126) POC Troponin I 0.02 ng/mL ng/mL (0.00-0.08) NT-Pro-B Natriuret Pep Total Protein 5.4 g/dL L g/dL (6.3-8.2) Albumin 2.1 g/dL L g/dL (3.5-5.0) 08/11/18 08/11/18 10:20 10:20 WBC 10.48 10^3/uL H 10^3/uL (3.80-9.50) RBC 4.07 10^6/uL L 10^6/uL (4.40-6.38) Hgb 9.9 g/dL L g/dL (13.7-17.5) Hct 30.6 % L % (40.0-51.0) MCV 75.2 fL L fL (81.5-99.8) MCH 24.3 pg L pg (27.9-34.1) MCHC 32.4 g/dL g/dL (32.4-36.7) RDW 23.0 % H % (11.5-15.2) Plt Count 318 10^3/uL 10^3/uL (150-400) MPV 9.3 fL fL (8.7-11.7) Neut % (Auto) 83.8 % H % (39.3-74.2) Lymph % (Auto) 6.2 % L % (15.0-45.0) [place] % (Auto) 8.3 % % (4.5-13.0) Eos % (Auto) 0.6 % % (0.6-7.6) Baso % (Auto) 0.5 % % (0.3-1.7) Nucleat RBC Rel Count 0.0 % % (0.0-0.2) Absolute Neuts (auto) 8.79 10^3/uL H 10^3/uL (1.70-6.50) Absolute Lymphs (auto) 0.65 10^3/uL L 10^3/uL (1.00-3.00) Absolute Monos (auto) 0.87 10^3/uL H 10^3/uL (0.30-0.80) Absolute Eos (auto) 0.06 10^3/uL 10^3/uL (0.03-0.40) Absolute Basos (auto) 0.05 10^3/uL 10^3/uL (0.02-0.10) Absolute Nucleated RBC 0.00 10^3/uL 10^3/uL (0-0.01) Immature Gran % 0.6 % % (0.0-1.1) Immature Gran # 0.06 10^3/uL 10^3/uL (0.00-0.10) Platelet Estimate ADEQUATE (ADEQ) Hypochromasia 2+ H Tear Drop Cells 1+ H Oval Macrocytes 1+ H Schistocytes 1+ H PT INR Sodium 126 mEq/L L mEq/L (135-145) Potassium 4.2 mEq/L mEq/L (3.5-5.2) Chloride 93 mEq/L L mEq/L (97-110) Carbon Dioxide 31 mEq/l mEq/l (22-31) Anion Gap 2 mEq/L L mEq/L (6-14) BUN 28 mg/dL H mg/dL (7-23) Creatinine 1.3 mg/dL mg/dL (0.7-1.3) Estimated GFR 54 Glucose 96 mg/dL mg/dL (70-100) Calcium 7.7 mg/dL L mg/dL (8.5-10.4) Total Bilirubin Conjugated Bilirubin Unconjugated Bilirubin AST ALT Alkaline Phosphatase POC Troponin I NT-Pro-B Natriuret Pep 9440 pg/mL H pg/mL (0-450) Total Protein Albumin Medications Given: Discontinued Medications Albumin Human (Flexbumin 25 % (Premix)) 100 mls @ 0 mls/hr IV ONCE ONE PRN Reason: As Directed Stop: 08/11/18 14:48 Last Admin: 08/11/18 15:46 Dose: 100 mls Point of Care Test Results: Chemistry 08/11/18 10:29 POC Troponin I 0.02 ng/mL ng/mL (0.00-0.08) Departure - Departure Disposition: [facility] Inpatient Acute Clinical Impression: Pleural effusion, Nonsustained ventricular tachycardia Fatigue Qualifiers: Fatigue type: other Qualified Code(s): R53.83 - Other fatigue Condition: Fair
[2018-08-11 10:37] LABS: PLATELET COUNT 318 10^3/uL (150-400)
[2018-08-11 10:51] LABS: INR 1.25 (0.83-1.16); PROTIME(PATIENT) 15.2 SEC (12.0-15.0)
[2018-08-11] MEDS ORDERED: ACETAMINOPHEN 325 MG TAB PO PRN (14:20)
[2018-08-11] MEDS ORDERED: NITROGLYCERIN 0.4 MG BTL SL PRN ×2 (14:20→17:08)
[2018-08-11] MEDS ORDERED: ONDANSETRON DISINTEGRATING 4 MG TAB PO PRN (14:22)
[2018-08-11] MEDS ORDERED: ONDANSETRON 4 MG/2 ML VIAL IVP PRN (14:22)
[2018-08-11] MEDS ORDERED: FUROSEMIDE 20 MG/2 ML VIAL IVP ONE (14:47)
[2018-08-11] MEDS ORDERED: ALBUMIN 25% 100 ML IV ONE (14:47)
--- NOTE | 2018-08-11 15:35 | CPEKG ---
Test Reason : OPEN Blood Pressure : / mmHG Vent. Rate : 087 BPM Atrial Rate : 087 BPM P-R Int : 149 ms QRS Dur : 100 ms QT Int : 395 ms P-R-T Axes : 075 000 055 degrees QTc Int : 476 ms Sinus rhythm Low voltage, extremity leads Borderline prolonged QT interval Confirmed by Rosy Tejada ([id number]) on 08/11/2018 3:34:44 PM Referred By: Rosy Tejada Confirmed By:Rosy Tejada
[2018-08-11] MEDS: LIDOCAINE TP SCH (16:19)
[2018-08-11] MEDS: [UNRECOGNIZED DRUG - OTHER] TP SCH (16:19)
[2018-08-11] MEDS: TIOTROPIUM INHALER 18 MCG/DOSE 5 DOSE/MDI IH SCH (16:19)
[2018-08-11] MEDS: ACETAMINOPHEN 325 MG TAB PO SCH ×2 (16:23→22:43)
--- NOTE | 2018-08-11 16:36 | GHP ---
[f rep st] HISTORY AND PHYSICAL DATE OF ADMISSION: 08/11/2018 CHIEF COMPLAINT: Weakness and chest pressure. HISTORY OF PRESENT ILLNESS: The patient is a 73-year-old man recently diagnosed with metastatic colo n cancer to his liver and potential lung. He was diagnosed on 07/24/2018, and underwent a resection complicated by ileus requiring an extended hospitalization. At the time, he was noted to have liver METS and possible lung METS versus primary. He eventually improved to a point where he was able to g o to rehab for strengthening. During his initial hospitalization, he was diagnosed with coronary artery disease and had an angiogra m which revealed an occluded circumflex as well as a decreased ejection fraction. While at [place] doing exercises, he started noticing some difficulty with shortness of br eath. On Monday, he was working with his arm exercises and that night and the next day had interm ittent chest pressure. He said that the chest pressure was ongoing, so the doctor did order some blo od work, which revealed mild hyponatremia. Because of the weakness, hyponatremia and chest pressure, he was sent to the emergency department for further evaluation and treatment. The patient does stat e that he has been eating and drinking much more since leaving the hospital and feels his GI tract is working well. He has had some bowel movements and urination, which have been relatively small amoun ts. He denies any significant abdominal discomfort, although has had chest pressure as noted above. He has lower extremity edema and diffuse weakness. REVIEW OF SYSTEMS: A 10-point review of systems was done with pertinent positives and negatives pres ent in HPI. PAST MEDICAL HISTORY: 1. Metastatic colon cancer to the liver and likely metastatic ascites. 2. Pulmonary nodules, likely metastatic, but cannot rule out primary given his extensive tobacco his tory. 3. Emphysema noted on his CT scan with likely COPD and ongoing tobacco use, although he quit smoking cigarettes, he does vape regularly. FAMILY HISTORY: Father had a stroke. Mother had some form of leukemia. SOCIAL HISTORY: He and his live in a ranch-style home that was actually prepared to care for hi s 's 90+ year old mother. They bought the house after she passed. He quit smoking 5 years ago, but still vapes. He does not drink any alcohol. They have 2 sons who live close by. Actually, 1 milton n lives with him. The other son is in [place] with his family. 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 MEDICATIONS: Recently started on aspirin, Lipitor, carvedilol, gabapentin. He does not appear to be currently on an PRIYA inhibitor or ARB. ALLERGIES: No known drug allergies. PHYSICAL EXAMINATION: VITAL SIGNS: He is afebrile. Heart rate 93, blood pressure 99/76, respiratio ns 17, he is 98% on 2 L. GENERAL: He is a thin 73-year-old man. He is in no distress. He is alert and oriented. HEENT: Pupils are equal. Extraocular movements intact. Mucous membranes moist. Or opharynx is clear. NECK: Supple without adenopathy. HEART: Regular. LUNGS: Diminished breath so unds bilaterally. No wheezing or rhonchi. ABDOMEN: He does have some well-healed postsurgical scar s, but overall soft with minimal tenderness. Positive bowel sounds. EXTREMITIES: He has bilateral lower extremity pitting edema. SKIN: Shows no rash. MUSCULOSKELETAL: No joint effusions or deform ities noted. NEUROLOGIC: Speech is fluent and he moves all 4 extremities. PSYCHIATRIC: Normal moo d and appropriate. LABORATORY DATA: CBC shows a white count of 10.4, hemoglobin 9.9, which is improved, platelet count of 318. Electrolytes show sodium 126, BUN 28 with a creatinine of 1.3, this is up from previous BUN of 8 and a creatinine of 0.7. LFTs are elevated again with the AST elevated at 112, up from 60, norm al ALT and alkaline phosphatase at 1292, up from 550. BNP is elevated at 9440 with a negative tropon in. ASSESSMENT AND PLAN: A 73-year-old presents with weakness and chest pressure with known coronary dis ease and recently diagnosed metastatic colon cancer. 1. Chest pressure with known coronary artery disease and occluded circumflex with collaterals, slow filling, and likely ischemic cardiomyopathy. He is on appropriate medication and has low blood press ure, which may not tolerate an PRIYA inhibitor at this time. Currently he is pain free, but does have a history of intermittent chest pressure over the last few days while at rehab. I did discuss the ca se in detail with Cardiology who will see the patient and determine if his case would be amenable to further interventional cardiology. 2. Ischemic cardiomyopathy, currently on Coreg and has anasarca. Unclear how much of his edema is f rom congestive heart failure versus low albumin and poor nutritional status. I will plan on giving h im some albumin and Lasix to try to get rid of his 3rd spacing of fluid and follow him clinically. 3. Hyponatremia, likely multifactorial due to poor nutrition as well as anasarca and congestive hear t failure. Again, try albumin and Lasix and monitor his sodium level. We will also push extra prote in including Ensure. At this time, given his elevated BUN and creatinine, we will hold off on the fl uid restriction, see what he does with the albumin. 4. Metastatic colon cancer. Discussed with Oncology who feel his overall prognosis is fair. He is a candidate for palliative chemotherapy which may give him a couple additional years of life. Hernan merino, he is incurable at this point. He will follow up with Dr. Smith as an outpatient to start chemo therapy after he has healed sufficiently from his recent colectomy and ileus. 5. Probable chronic obstructive pulmonary disease with ongoing tobacco use in the form of vaping. U nclear how much of his chest pressure and shortness of breath may be due to chronic obstructive pulmo nary disease. We will do a trial of an inhaler while he is here in the hospital to see if we can get him breathing better. 6. Deep vein thrombosis prophylaxis. Patient is currently on enoxaparin from the skilled rehab and will continue that. 7. Edema, likely secondary to congestive heart failure and nutrition status. See above. /[id number]/MODL
[2018-08-11] MEDS ORDERED: diphenhydrAMINE 25 MG CAP PO ONE (17:08)
[2018-08-11] MEDS ORDERED: FAMOTIDINE 20 MG TAB PO ONE (17:08)
[2018-08-11] MEDS ORDERED: DIAZEPAM 5 MG TAB PO ONE (17:08)
[2018-08-11] MEDS: CARVEDILOL 3.125 MG TAB PO SCH (17:52)
[2018-08-11] MEDS: NICOTINE 14 MG/24 HR PATCH TD SCH (17:52)
[2018-08-11] MEDS: CLOPIDOGREL BISULFATE 75 MG TAB PO SCH (17:52)
[2018-08-11 18:15] LABS: PLATELET COUNT 287 10^3/uL (150-400)
[2018-08-11 18:33] LABS: INR 1.2 (0.83-1.16); PROTIME(PATIENT) 14.7 SEC (12.0-15.0)
[2018-08-11] MEDS: oxyCODONE IR 5 MG TAB PO PRN (20:07)
[2018-08-11] MEDS: FLUTICASONE/SALMETER 250/50MCG DISKUS IH SCH (20:15)
[2018-08-11] MEDS ORDERED: Melatonin [Melatonin 5 Mg] 5 MG PO SCH (21:00)
[2018-08-11] MEDS: DOCUSATE SODIUM 100 MG CAP PO SCH (22:44)
[2018-08-11] MEDS: FERROUS SULFATE 325 MG TAB PO SCH (22:44)
[2018-08-11] MEDS: GABAPENTIN 300 MG CAP PO SCH (22:44)
[2018-08-11] MEDS: MELATONIN 3 MG TAB PO SCH (22:44)
[2018-08-11] MEDS: ATORVASTATIN CALCIUM 40 MG TAB PO SCH (22:44)
[2018-08-11] MEDS: TEMAZEPAM 15 MG CAP PO PRN (22:44)
[2018-08-12] MEDS: LIDOCAINE TP SCH ×4 (00:11→23:28)
[2018-08-12] MEDS: MELATONIN 3 MG TAB PO SCH ×2 (00:11→21:56)
[2018-08-12] MEDS: [UNRECOGNIZED DRUG - OTHER] TP SCH ×4 (00:11→23:28)
--- NOTE | 2018-08-12 08:15 | HOSPPROG ---
Hospitalist Progress Note Assessment/Plan: 73yo M recently diagnoses with metastatic colon cancer and CAD here with chest pain. #Chest pain: C/w angina. Known total occlusion of LCx. - Cardiology planning on angiography w/potential intervention this AM #CAD - On aspirin, statin, beta sharon - Dual antiplatelet agent if PCI #Systolic CHF 2/2 ICM: LVEF 35%. Has pitting edema but may not all be cardiac related. - S/p 40mg IV lasix last night - Will likely need some additional diuresis after procedure - Continue coreg, not on ACEi or MRA (bp has been lower occasionally) #CURT: FENa low, suspect cardiorenal. - Monitor with diuresis #Hyponatremia: Hypervolemic. Improved with diuresis. - Monitor with diuresis #Metastatic colon cancer: Mets to liver, lung. S/p sigmoid resection with anastomosis. - Oncology consulted last admit, planning on chemo 4-6 weeks after surgery #AAA: 5.7cm #COPD: No acute exacerbation. Continue advair, spiriva, albuterol prn. #Anemia: Improving from last admission. #Peripheral edema: Combo of heart failure, hypoalbuminemia. VTE ppx: SCDs Code: full Dispo: Remain inpatient Subjective: No chest pain since arrival in hospital. Feeling groggy. Moving bowels ok, minimal abdominal pian. Leg swelling has been stable. Objective: Vital Signs Temp Pulse Resp BP Pulse Ox 36.4 C 94 18 111/71 94 08/12/18 03:59 08/12/18 03:59 08/12/18 03:59 08/12/18 03:59 08/12/18 03:59 Laboratory Results 08/11/18 18:00 08/12/18 03:50 08/11/18 08/12/18 08/13/18 05:59 05:59 05:59 Intake Total 200 Output Total 500 Balance -300 PT 14.7 SEC (12.0-15.0) 08/11/18 18:00 INR 1.20 (0.83-1.16) H 08/11/18 18:00 - Physical Exam Constitutional: no apparent distress, appears nourished Eyes: PERRL, anicteric sclera Ears, Nose, Mouth, Throat: moist mucous membranes, hearing normal, ears appear normal, no oral mucosal ulcers Cardiovascular: regular rate and rhythym, edema (2+ pitting to knees bilaterally ), No JVD Respiratory: no respiratory distress, no rales or rhonchi, reduced air movement (bases) Gastrointestinal: normoactive bowel sounds, soft, non-tender abdomen, no palpable masses, other (incision sites healing well) Genitourinary: no bladder fullness, no bladder tenderness, no renal bruits Skin: no rashes or abrasions, no fluctuance, no induration Musculoskeletal: generalized weakness Neurologic: AAOx3 Psychiatric: interacting appropriately ICD10 Worksheet Patient Problems: Problems Problem Status Onset Fatigue Acute Nonsustained ventricular tachycardia Acute Pleural effusion Acute Abnormal EKG Acute Anemia Acute Syncope Acute
[2018-08-12] MEDS ORDERED: ENOXAPARIN 40 MG/0.4 ML SYR SC SCH (09:00)
[2018-08-12] MEDS: CARVEDILOL 3.125 MG TAB PO SCH ×2 (09:25→18:22)
[2018-08-12] MEDS: FLUTICASONE/SALMETER 250/50MCG DISKUS IH SCH ×2 (09:25→20:02)
[2018-08-12] MEDS: TIOTROPIUM INHALER 18 MCG/DOSE 5 DOSE/MDI IH SCH (09:26)
[2018-08-12] MEDS: ACETAMINOPHEN 325 MG TAB PO SCH ×3 (09:26→21:56)
[2018-08-12] MEDS: DOCUSATE SODIUM 100 MG CAP PO SCH ×2 (09:26→21:57)
[2018-08-12] MEDS: CLOPIDOGREL BISULFATE 75 MG TAB PO SCH (09:26)
[2018-08-12] MEDS: FERROUS SULFATE 325 MG TAB PO SCH ×2 (09:26→21:56)
[2018-08-12] MEDS: ASPIRIN 81 MG CHEWABLE TAB PO SCH (09:26)
[2018-08-12] MEDS: FAMOTIDINE 20 MG TAB PO SCH (09:28)
[2018-08-12] MEDS ORDERED: fentaNYL 100 MCG/2 ML INJ ONE (09:38)
[2018-08-12] MEDS ORDERED: LIDOCAINE 1% 300 MG/30 ML SDV ONE (09:38)
[2018-08-12] MEDS ORDERED: IOPAMIDOL (ISOVUE-370) 150 ML BTL IV ONE ×2 (09:39→11:03)
[2018-08-12] MEDS ORDERED: MIDAZOLAM 2 MG/2 ML VIAL ONE (09:39)
--- NOTE | 2018-08-12 09:39 | PDPROPOC ---
Sedation Plan of Care Sedation Plan of Care: vital signs stable, mental status noted, patient educated of risks, benefits, alternatives, patient can tolerate sedation ASA Classification: ASA 2 Planned drugs: fentanyl, midazolam Mallampati Score: Class 2 Mallampati Reference Image: Patient passed 3-3-2 rule?: Yes
[2018-08-12] MEDS ORDERED: BIVALIRUDIN 250 MG/5 ML VIAL IV ONE (09:43)
--- NOTE | 2018-08-12 09:56 | PDCARPN ---
Cardiology Progress Note Assessment/Plan: Assessment: -COMBINATION MAN of LCX -ICM with LVEF 35% -Systolic CHF -Exertional chest pressure and RUIZ Plan: -Risk and benefits of C reviewed. Consents signed -Continue current medications -Elective PCI to LCX COMBINATION MAN this AM with Dr. Arana 08/12/18 09:52 Subjective: Mr. Newman has no new complaints over night. No new events on telemetry. No chest pain or sob. BNP down to 8200. No palpitations. Plan for elective PCI of COMBINATION MAN of LCX in the setting of limiting, exertional symptoms while at rehab this past week. Reviewed/Discussed With: family, multidisciplinary team Time Spent with Patient: greater than 25 minutes Time Spent with Patient: Greater than 25 minutes spent on this patients care, greater than 50% of time spent counseling, educating, and coordinating care regarding the above mentioned plan. Objective: Vital Signs (8 Hrs) Temp Pulse Resp BP Pulse Ox 08/12/18 09:25 113 H 08/12/18 08:00 36.4 C 111 H 15 139/85 H 90 L 08/12/18 03:59 36.4 C 94 18 111/71 94 Intake/Output (24 Hrs) 08/11/18 08/12/18 08/13/18 05:59 05:59 05:59 Intake Total 200 Output Total 500 Balance -300 Intake: Oral (ml) 200 Output: Urine (ml) 500 Catheter 500 Other: Weight 68.1 kg Intake Quantity Yes Sufficient Number of Stools Toilet 1 Result Diagrams: 08/11/18 18:00 08/12/18 03:50 - Physical Exam Constitutional: other (Fatigued, Weak. ) Cardiovascular: regular rate and rhythm, no murmurs, no rubs, no gallops Peripheral Pulses: 2+: carotid (R), carotid (L) Respiratory: clear to auscultate bilat Neurologic: AAOx3, CN II-XII grossly intact Psychiatric: cooperative, interactive, following commands ICD10 Worksheet Patient Problems: Problems Problem Status Onset Fatigue Acute Nonsustained ventricular tachycardia Acute Pleural effusion Acute Abnormal EKG Acute Anemia Acute Syncope Acute
[2018-08-12] MEDS ORDERED: DIAZEPAM 5 MG TAB PO ONE (10:00)
[2018-08-12] MEDS ORDERED: diphenhydrAMINE 25 MG CAP PO ONE (10:00)
[2018-08-12] MEDS ORDERED: FAMOTIDINE 20 MG TAB PO ONE (10:00)
--- NOTE | 2018-08-12 10:02 | GCON ---
[f rep st] CONSULTATION CARDIOLOGY CONSULTATION REFERRING PHYSICIAN: Rosy Tejada MD REASON FOR CONSULTATION: Chest pain, shortness of breath, fatigue in the setting of known ischemic c ardiomyopathy with occluded circumflex vessel from left heart catheterization July 23, 2018. HISTORY OF PRESENT ILLNESS: Mr. Newman is a pleasant 73-year-old gentleman who was admitted earlier this month on July 23, with a near syncopal episode. He reports that prior to the onset of his a dmission, he had been noticing a decline in his energy status since approximately 2017. He had become progressively more weak and fatigued, and ultimately had a near syncopal episode at home on July 23. His initial evaluation included an echocardiogram demonstrating a reduced ejection fr action of approximately 35% to 40%. He was subsequently consulted by Cardiology with Dr. Christiano macias. He underwent diagnostic left heart catheterization, which demonstrated an occluded circumflex ves evangelina in the proximal portion of the vessel with evidence of right to left collaterals off a dominant r ight coronary artery. There was 40% ostial stenosis of a 1st diagonal branch, which also appears to demonstrate collaterals to the circumflex vessel. Of note, he was found to be markedly anemic with a hemoglobin of 9.7, hematocrit of 31.7, platelet co unt of 425, with MCV of 76.8. Workup demonstrated a large sigmoid colonic mass and found to have stage IV metastatic colon cancer w ith metastasis to the liver and potential metastasis to the lung. He is being followed by Oncology i danika Verdugo. He did undergo successful colon sigmoid resection with Dr. Que Bell. He tolerated the surgery w ell. He was discharged from [facility] a week ago today on August 04, 2018, to rehab facility. Plan was for him to increase his strength and stamina with plan for possible percutaneous coronary i ntervention in the future. Over the course of the last week while at rehab, Mr. Newman noted marked and profound fatigue. He s ays he has had difficulty with performing exercise due to fatigue. However, he also states that on , the date he was most active, that during exercise, he developed acute onset of substernal c hest pressure and shortness of breath that persisted for 3 hours and gradually resolved with rest. T his limited his further ability to exercise. He presented back to [facility] today with new findings of increasing lower extremity edema, hyponatremia. In the ER, he was found to have an 11-beat run of asymptomatic, nonsustained ventricular tachycardia. He denies complaints of palpitations, dizziness, lightheadedness, near syncope, or syncope. He denie s complaints of PND, orthopnea. He does admit to increased lower extremity edema. He has no complai nts of fevers, chills, sweats, nausea, or vomiting. His primary complaint is significant fatigue and exertional chest pressure with exercise. PAST MEDICAL HISTORY: 1. Stage IV colon cancer with metastasis to liver, status post sigmoid colonic resection July 2018. 2. Ischemic cardiomyopathy with LVEF of 35%. 3. Occluded proximal circumflex vessel with [id number]-[id number] collaterals. ADMISSION MEDICATIONS: Include: Aspirin 81 mg daily, Coreg 3.125 mg p.o. b.i.d., atorvastatin 40 mg daily. He is also on oxycodone for pain, nitroglycerin p.r.n., Nicoderm CQ, melatonin 5 mg p.o. q.h .s., Neurontin 300 mg h.s., iron sulfate 325 mg p.o. b.i.d., Pepcid 20 mg daily, Lovenox 40 mg subcut aneous daily, Colace 100 mg b.i.d., Tylenol 650 mg p.o. t.i.d. ALLERGIES: To medications, none. SOCIAL HISTORY: He lives with his . They have 3 children. He is a former smoker, but quit appr oximately 5 years ago, but he still vapes. He does not drink alcohol. 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 FAMILY HISTORY: No family history of premature coronary artery disease. PHYSICAL EXAMINATION: GENERAL: He is awake, alert, oriented, appropriate. He does seem fatigued. He responds appropriately to questions. NECK: There is no evidence of JVP or carotid bruits. LUNGS : Clear anteriorly. CARDIAC: S1, S2. Regular rate and rhythm. No murmurs, rubs, or gallops. ABD OMEN: Demonstrates distant bowel sounds. Incision is healing well. Nontender to palpation. He tejada s have 3+ pitting edema to the thighs bilaterally. He has difficulty sitting up in bed, but I can ap preciate sacral edema as well. DATA REVIEWED: White blood cell count 10.48, hemoglobin 9.9, hematocrit 30.6, platelet count 318. S odium 126, potassium 4.2, chloride 93, bicarb 31, BUN 20, creatinine 1.3, calcium 7.7. N-terminal pr oBNP 9440. Albumin 2.1, AST 112, ALT 39, alkaline phosphatase 1292, total bilirubin 0.9, conjugated bilirubin 0.8, LDL value from July 24, 2018, of 124. ECG performed today at 10 a.m. demonstrates sinus rhythm with low voltage. Telemetry strip in his ch art demonstrates a 9-beat run of nonsustained asymptomatic ventricular tachycardia. IMPRESSIONS: 1. Exertional angina. 2. Dyspnea on exertion. 3. Occluded proximal circumflex vessel. 4. Ischemic cardiomyopathy with left ventricular ejection fraction of 35%. 5. Nonsustained ventricular tachycardia. 6. Increasing fatigue. 7. Systolic congestive heart failure with 3+ pitting edema to the waist with BNP of approximately 9, 400. SUMMARY: I have reviewed with Mr. Newman and his his left heart catheterization results from [facility] this month. Discussed risks and benefits of percutaneous coronary intervention. I explained to Mr. Newman and his that I do not feel that all of his symptoms were related to underlying co ronary disease in the setting of new metastatic stage IV colon cancer. I did explain his exertional symptoms while exercising this past week at rehab certainly represent exertional angina. This is oneal iting his ability to increase his stamina and strength for potential chemotherapy in the future for h is cancer. I discussed risks of left heart catheterization including stroke, acute myocardial infarction, or kendall den . 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 Mr. Newman is agreeable to pursue left heart catheterization. PLANS: 1. N.p.o. after midnight. 2. Left heart catheterization with Dr. Arana for attempt at opening the circumflex vessel. 3. We will start Plavix 75 mg daily. Continue aspirin 81 mg daily. Continue atorvastatin 40 mg maira ly. 4. We will continue Coreg 3.125 mg p.o. b.i.d. 5. In the setting of elevated liver enzymes and metastatic disease to liver, we will not initiate am iodarone unless he has further runs of ventricular tachycardia on telemetry. 6. We will continue to follow along with his care. /[id number]/MODL
[2018-08-12] MEDS ORDERED: CLOPIDOGREL BISULFATE 75 MG TAB ONE (11:08)
--- NOTE | 2018-08-12 11:14 | PDMN ---
Medical Necessity Medical necessity: MCG: M40 angina: A-1 days; 73yoM with recent Dg met. colon ca to liver and lung. presents with SOB, RUIZ, Chest pressure, known CAD with occluded circ. vessel from [facility] July ( 2 weeks ago) , increasing LLE edema and hyponatremia, EKG shows 11 beat run of asymptomatic nonsustained vent. tachycardia. - anticipate > 2 MN ongoing med nec care- further monitoring, eval and tx
[2018-08-12] MEDS ORDERED: ATROPINE SULFATE 1 MG/10 ML SYR IVP PRN (11:32)
[2018-08-12] MEDS ORDERED: CLOPIDOGREL BISULFATE 75 MG TAB PO ONE (11:32)
[2018-08-12] MEDS ORDERED: HYDROCODONE/APAP 5/325 TAB PO PRN (11:32)
--- NOTE | 2018-08-12 11:33 | ASMTCASEMG ---
Living Arrangements What is your living Answers: With Spouse arrangement? Who do you live with? Type Of Residence What kind of residence do Answers: House you live in? Discharge Plan Comments Coordination Status Comments Notes: Patient is a 73yo male who has hx of CAD and recently was diagnosed with metastatic colon cancer. He comes to [facility] with weakness and chest pressure and has been admitted for ischemic cardiomyopathy, hyponatremia, metastatic colon cancer,edema, and probable chronic obstructive pulmonary disease. PT/OT evals have been ordered. D/C plan TBD. CM will follow. Date Signed: 08/12/2018 10:18 AM Electronically Signed By:Lorene Richards LCSW
[2018-08-12] MEDS ORDERED: NS 1,000 ML IV SCH (11:45)
--- NOTE | 2018-08-12 11:52 | PDDXCAT ---
Diagnostic Cath Note - . Date: 08/12/18 Burring Wheel Operator: Sumit Indication: other (Coronary artery disease ischemic cardiomyopathy, chest pain, and nonsustained VT.) - Procedure Access: right groin Procedure: other (PCI of the Circumflex.) - Materials Left Heart Cath size: 7F Complications: None Estimated blood loss: <50ml Closure method: Angioseal Intervention: A 7 luxembourgish sheath was placed in the right femoral artery. Initial angiography demonstrated chronic total occlusion of the proximal circumflex over a moderate length segment into a bifurcated obtuse marginal branch which received left-to- left collaterals. The patient received intravenous Angiomax. A 7 Irish CLS 3.5 guide catheter was advanced to the left main. A 1.5 x 8 mm [id number]-inda Sprinter balloon containing a [employer]urbine Engine [employer]sembler 50 guidewire was advanced to the left main. The wire was negotiated into the circumflex. Using the balloon for support, the Turbine Engine Assembler 50 guidewire was passed across the chronic total occlusion into the proximal to midportion of the lower limb of the bifurcated obtuse marginal branch. A series of inflations was performed. Minimal anterograde flow was reestablished. Therefore, the Sprinter balloon was advanced into the distal portion of the lower limb of the major obtuse marginal branch. He Turbine Engine Assembler 50 guidewire was exchanged for a [employer] guidewire. A series of inflations one was performed using a 2.0 x 15 mm Sprinter balloon. A 2.5 x 28 mm Rebel bare-metal stent was then advanced into midportion of the lower branch of the OM and was deployed. A second Rebel stent measuring 3.0 x 16 mm was advanced and deployed proximal to the first stent with slight overlap. An additional high pressure inflation was performed at the overlapped segment. Final angiograms demonstrated 0% residual stenosis and LILIANE-III flow into the lower limb of the bifurcated principal obtuse marginal branch. Attempts were made to introduce a guidewire into the upper limb of the obtuse marginal branch to hopefully dilate it through "stent-skilled nursing" . However, this was unsuccessful. Final angiography demonstrated that the upper limb of the obtuse marginal branch had significantly improved flow compared to the beginning of the procedure. Patient Problems: Problems Problem Status Onset Fatigue Acute Nonsustained ventricular tachycardia Acute Pleural effusion Acute Abnormal EKG Acute Anemia Acute Syncope Acute
[2018-08-12] MEDS: NICOTINE 14 MG/24 HR PATCH TD SCH (18:21)
[2018-08-12] MEDS: ATORVASTATIN CALCIUM 40 MG TAB PO SCH (21:56)
[2018-08-12] MEDS: GABAPENTIN 300 MG CAP PO SCH (21:56)
[2018-08-13] MEDS: FLUTICASONE/SALMETER 250/50MCG DISKUS IH SCH (08:53)
[2018-08-13] MEDS: TIOTROPIUM INHALER 18 MCG/DOSE 5 DOSE/MDI IH SCH (08:54)
[2018-08-13] MEDS: CARVEDILOL 3.125 MG TAB PO SCH ×3 (09:40→18:17)
[2018-08-13] MEDS: DOCUSATE SODIUM 100 MG CAP PO SCH ×2 (09:41→20:37)
[2018-08-13] MEDS: ASPIRIN 81 MG CHEWABLE TAB PO SCH (09:41)
[2018-08-13] MEDS: CLOPIDOGREL BISULFATE 75 MG TAB PO SCH (09:41)
[2018-08-13] MEDS: ACETAMINOPHEN 325 MG TAB PO SCH ×3 (09:41→20:38)
[2018-08-13] MEDS: FAMOTIDINE 20 MG TAB PO SCH (09:41)
[2018-08-13] MEDS: FERROUS SULFATE 325 MG TAB PO SCH ×2 (09:42→20:37)
[2018-08-13] MEDS: LIDOCAINE TP SCH ×3 (09:42→21:45)
[2018-08-13] MEDS: [UNRECOGNIZED DRUG - OTHER] TP SCH ×3 (09:42→21:45)
--- NOTE | 2018-08-13 12:50 | HOSPPROG ---
Hospitalist Progress Note Assessment/Plan: 73yo M recently diagnosed with metastatic colon cancer and CAD here with chest pain. #Arteriotomy site bleeding: Resolved with fem-stop. #CAD, chest pain: S/p 2 BMS to OM. - Now on plavix. Continue aspirin, statin, beta sharon #Systolic CHF 2/2 ICM: LVEF 35%. Has pitting edema but likely not all cardiac related. - Hold on additional diuresis for now given low BP - Continue coreg, not on ACEi or MRA #CURT: FENa low, suspect cardiorenal. Slightly worse today. At risk for injury with recent contrast. - Holding lasix #Hyponatremia: Hypervolemic. Improved but a bit unclear what caused improvement. - Repeat urine studies today #Anemia: Slight drop in setting of bleed. Recheck tomorrow. #Metastatic colon cancer: Mets to liver, lung. S/p sigmoid resection with anastomosis. - Oncology consulted last admit, planning on chemo 4-6 weeks after surgery #AAA: 5.7cm #COPD: No acute exacerbation. Albuterol prn (he is not on spiriva or advair at home). #Peripheral edema: Combo of heart failure, hypoalbuminemia. Mgmt per above. #Deconditioning: PT/OT VTE ppx: SCDs Code: full Dispo: Remain inpatient Subjective: Bleeding from groin site this AM. Resolved w/fem stop. Very tired today. No chest discomfort. Objective: Vital Signs Temp Pulse Resp BP Pulse Ox 36.6 C 103 H 18 87/59 L 92 08/13/18 08:00 08/13/18 12:00 08/13/18 12:00 08/13/18 12:00 08/13/18 12:00 Laboratory Results 08/13/18 03:25 08/13/18 03:25 08/12/18 08/13/18 08/14/18 05:59 05:59 05:59 Intake Total 200 1250 Output Total 500 850 Balance -300 400 PT 14.7 SEC (12.0-15.0) 08/11/18 18:00 INR 1.20 (0.83-1.16) H 08/11/18 18:00 - Physical Exam Constitutional: no apparent distress, other (tired) Eyes: PERRL, anicteric sclera Ears, Nose, Mouth, Throat: moist mucous membranes Cardiovascular: systolic murmur, tachycardia, edema (3+ pitting to knees) Respiratory: no respiratory distress, reduced air movement (bases), No expiratory wheeze, No inspiratory crackles Gastrointestinal: normoactive bowel sounds, soft, non-tender abdomen, no palpable masses Genitourinary: no bladder fullness, no bladder tenderness, no renal bruits Skin: no rashes or abrasions, no fluctuance, no induration Musculoskeletal: generalized weakness Neurologic: AAOx3 Psychiatric: interacting appropriately ICD10 Worksheet Patient Problems: Problems Problem Status Onset Fatigue Acute Nonsustained ventricular tachycardia Acute Pleural effusion Acute Abnormal EKG Acute Anemia Acute Syncope Acute
--- NOTE | 2018-08-13 15:59 | PDCARPN ---
Cardiology Progress Note Assessment/Plan: 84 y/o male with recently identified coronary artery disease, ischemic cardiomyopathy, and stage IV metastatic colon cancer. During a hospital admission earlier this month, he underwent resection of his primary sigmoid carcinoma which was obstructive. He was discharged to rehabilitation. He is now readmitted with profound weakness, dyspnea on exertion, chest discomfort, and nonsustained VT. Coronary Artery Disease: Cardiac catheterization performed during his prior hospital stay demonstrated chronic total occlusion of the circumflex and non- flow-limiting CAD in other territories. PCI was deferred at that time because if a significant anemia which led to the discovery of his colon cancer. He underwent PCI of the chronically occluded circumflex yesterday. The final outcome was excellent. He received 2 bare-metal stents. (Bare-metal stents were chosen in order to minimize the time required on dual antiplatelet therapy in light of his recent cancer diagnosis and the potential need for additional invasive/surgical procedures.) - Continue secondary prevention measures. Statin therapy was initially deferred because of the extensive hepatic involvement of his cancer but has now been started. Cardiomyopathy: He has an ischemic cardiomyopathy with an ejection fraction of approximately 40%. He appears to be volume compensated. - Continue current medications. Can consider institution of additional medicines that would comprise a usual cardiomyopathy/CHF regimen as his clinical status allows. - IV or PO furosemide as needed if he develops signs of fluid retention. Nonsustained Ventricular Tachycardia: He had an 11-beat run of nonsustained VT on August 11. None since. - Continue beta sharon therapy. 08/13/18 15:58 Subjective: No complaints. Reviewed/Discussed With: family Objective: Vital Signs (8 Hrs) Temp Pulse Resp BP Pulse Ox 08/13/18 12:00 103 H 18 87/59 L 92 08/13/18 08:00 36.6 C 120 H 18 138/94 H 94 Intake/Output (24 Hrs) 08/12/18 08/13/18 08/14/18 05:59 05:59 05:59 Intake Total 200 1250 Output Total 500 850 Balance -300 400 Intake: Oral (ml) 200 450 IV Intake (ml) 800 Output: Urine (ml) 500 850 Catheter 500 850 Other: Weight 68.1 kg 67.6 kg Intake Quantity Yes Sufficient Number of Stools Toilet 1 Result Diagrams: 08/13/18 03:25 08/13/18 03:25 - Physical Exam Constitutional: no apparent distress Eyes: anicteric sclera Ears, Nose, Mouth, Throat: moist mucous membranes Cardiovascular: regular rate and rhythm, no murmurs Respiratory: clear to auscultate bilat Gastrointestinal: normoactive bowel sounds, no masses Skin: no rashes, no edema Neurologic: AAOx3 Psychiatric: not anxious ICD10 Worksheet Patient Problems: Problems Problem Status Onset Syncope Acute Anemia Acute Abnormal EKG Acute Fatigue Acute Pleural effusion Acute Nonsustained ventricular tachycardia Acute
[2018-08-13] MEDS: NICOTINE 14 MG/24 HR PATCH TD SCH (18:01)
[2018-08-13] MEDS: MELATONIN 3 MG TAB PO SCH (20:37)
[2018-08-13] MEDS: ATORVASTATIN CALCIUM 40 MG TAB PO SCH (20:38)
[2018-08-13] MEDS: GABAPENTIN 300 MG CAP PO SCH (20:38)
[2018-08-13] MEDS: CALCIUM CARBONATE 500 MG CHEWABLE TAB PO PRN (23:14)
[2018-08-13] MEDS ORDERED: FAMOTIDINE 20 MG TAB PO SCH (23:31)
[2018-08-13] MEDS ORDERED: BISMUTH SUBSALICYLATE 524 MG/30 ML UDL PO PRN (23:32)
[2018-08-14] MEDS: CALCIUM CARBONATE 500 MG CHEWABLE TAB PO PRN (02:40)
[2018-08-14] MEDS: oxyCODONE IR 5 MG TAB PO PRN ×2 (02:40→21:36)
[2018-08-14] MEDS: ACETAMINOPHEN 325 MG TAB PO SCH ×3 (09:27→21:36)
[2018-08-14] MEDS: CLOPIDOGREL BISULFATE 75 MG TAB PO SCH (09:28)
[2018-08-14] MEDS: FAMOTIDINE 20 MG TAB PO SCH (09:28)
[2018-08-14] MEDS: [UNRECOGNIZED DRUG - OTHER] TP SCH ×3 (09:29→22:06)
[2018-08-14] MEDS: LIDOCAINE TP SCH ×3 (09:29→22:06)
[2018-08-14] MEDS: FERROUS SULFATE 325 MG TAB PO SCH ×2 (09:52→21:29)
[2018-08-14] MEDS: ASPIRIN 81 MG CHEWABLE TAB PO SCH (09:52)
[2018-08-14] MEDS: CARVEDILOL 3.125 MG TAB PO SCH ×2 (09:52→18:32)
[2018-08-14] MEDS: DOCUSATE SODIUM 100 MG CAP PO SCH ×2 (09:52→21:29)
--- NOTE | 2018-08-14 13:29 | HOSPPROG ---
Hospitalist Progress Note Assessment/Plan: 73yo M recently diagnosed with metastatic colon cancer and CAD here with chest pain. Course complicated by CURT. #CURT: Cr worsening, suspect he is dry, also received contrast - Urine studies, renal ultrasound - Pending results of above, will likely need fluids #CAD, chest pain: S/p 2 BMS to OM. - Now on plavix. Continue aspirin, statin, beta sharon #Arteriotomy site bleeding: Resolved with fem-stop. #Systolic CHF 2/2 ICM: LVEF 35%. Has pitting edema but do not think cardiac related. - Hold on diuresis - Continue coreg, not on ACEi or MRA #Hyponatremia: Down slightly - Rechecking urine studies. As above, plan for fluids #Anemia: Slight drop in setting of bleed. Stable. #Metastatic colon cancer: Mets to liver, lung. S/p sigmoid resection with anastomosis. - Oncology consulted last admit, planning on chemo 4-6 weeks after surgery ( Dr Smith) #AAA: 5.7cm #COPD: No acute exacerbation. Albuterol prn #Peripheral edema: Most likely r/t hypoalbuminemia. Mgmt per above. #Deconditioning: PT/OT. He is very weak. VTE ppx: SCDs, can likely resume pharmacologic tomorrow if H/H stable Code: full Dispo: Remain inpatient Subjective: Sitting up in chair, has a bit more energy. Complaining of some epigastric pain, feels like food gets stuck. No chest pain. Objective: Vital Signs Temp Pulse Resp BP Pulse Ox 36.0 C 91 14 109/66 97 08/14/18 12:00 08/14/18 12:00 08/14/18 12:00 08/14/18 12:00 08/14/18 12:00 Laboratory Results 08/14/18 03:20 08/14/18 03:20 08/13/18 08/14/18 08/15/18 05:59 05:59 05:59 Intake Total 1250 720 Output Total 850 275 200 Balance 400 445 -200 PT 14.7 SEC (12.0-15.0) 08/11/18 18:00 INR 1.20 (0.83-1.16) H 08/11/18 18:00 - Physical Exam Constitutional: no apparent distress, other (frail) Eyes: PERRL, anicteric sclera Ears, Nose, Mouth, Throat: moist mucous membranes, hearing normal, ears appear normal, no oral mucosal ulcers Cardiovascular: regular rate and rhythym, no murmur, rub, or gallop, edema (1+ BLE) Respiratory: no respiratory distress, reduced air movement (bases), No expiratory wheeze, No inspiratory crackles Gastrointestinal: normoactive bowel sounds, soft, non-tender abdomen, no palpable masses, other (incision sites healing well) Genitourinary: other (condom cath in place) Skin: no rashes or abrasions, no fluctuance, no induration Musculoskeletal: generalized weakness Neurologic: AAOx3 Psychiatric: interacting appropriately ICD10 Worksheet Patient Problems: Problems Problem Status Onset Fatigue Acute Nonsustained ventricular tachycardia Acute Pleural effusion Acute Abnormal EKG Acute Anemia Acute Syncope Acute
[2018-08-14] MEDS: NS 1,000 ML IV SCH (14:07)
--- NOTE | 2018-08-14 14:45 | ASMTCMCOM ---
CM Note CM Note Notes: Pts case discussed in tx rounds. Pt will return back to [facility] once medically stable. Therapies are recommending SNF. [facility]. CM to follow. Plan: [facility] Date Signed: 08/14/2018 02:45 PM Electronically Signed By:BRUCE Romano
[2018-08-14] MEDS: NICOTINE 14 MG/24 HR PATCH TD SCH (16:44)
[2018-08-14] MEDS: MBX SOLN 30 ML BOTTLE PO PRN (16:55)
--- NOTE | 2018-08-14 17:18 | PDCARPN ---
Cardiology Progress Note Assessment/Plan: 84 y/o male with recently identified coronary artery disease, ischemic cardiomyopathy, and stage IV metastatic colon cancer. During a hospital admission earlier this month, he underwent resection of his primary sigmoid carcinoma which was obstructive. He was discharged to rehabilitation. Readmitted 08/11 with profound weakness, dyspnea on exertion, chest discomfort, and nonsustained VT. Coronary Artery Disease: Cardiac catheterization performed during his prior hospital stay demonstrated chronic total occlusion of the circumflex and non- flow-limiting CAD in other territories. PCI was deferred at that time because if a significant anemia which led to the discovery of his colon cancer. He underwent PCI of the chronically occluded circumflex yesterday. The final outcome was excellent. He received 2 bare-metal stents. (Bare-metal stents were chosen in order to minimize the time required on dual antiplatelet therapy in light of his recent cancer diagnosis and the potential need for additional invasive/surgical procedures.) - Continue secondary prevention measures. Statin therapy was initially deferred because of the extensive hepatic involvement of his cancer but has now been started. Cardiomyopathy: He has an ischemic cardiomyopathy with an ejection fraction of approximately 40%. He appears to be volume compensated. - Continue current medications. Can consider institution of additional medicines that would comprise a usual cardiomyopathy/CHF regimen as his clinical status allows. - IV or PO furosemide as needed if he develops signs of fluid retention. Nonsustained Ventricular Tachycardia: He had an 11-beat run of nonsustained VT on August 11. None since. - Continue beta sharon therapy. 08/14/18 17:16 Subjective: No cardiovascular complaints. Reviewed/Discussed With: family Objective: Vital Signs (8 Hrs) Temp Pulse Resp BP Pulse Ox 08/14/18 16:00 36.4 C 89 16 100/64 93 08/14/18 12:00 36.0 C 91 14 109/66 97 08/14/18 09:52 113 H 129/83 H Intake/Output (24 Hrs) 08/13/18 08/14/18 08/15/18 05:59 05:59 05:59 Intake Total 1250 720 Output Total 850 275 200 Balance 400 445 -200 Intake: Oral (ml) 450 720 IV Intake (ml) 800 0 Output: Urine (ml) 850 275 200 Catheter 850 275 200 Other: Weight 67.6 kg 67.5 kg Number of Stools Bedside Commode 1 Incontinence 1 Bladder Scan Volume (ml) Catheter 351 Result Diagrams: 08/14/18 03:20 08/14/18 03:20 - Physical Exam Constitutional: no apparent distress Eyes: anicteric sclera Ears, Nose, Mouth, Throat: moist mucous membranes Cardiovascular: regular rate and rhythm, no murmurs Respiratory: clear to auscultate bilat Gastrointestinal: normoactive bowel sounds, no tenderness, no masses Skin: no rashes, other (minimal edema) ICD10 Worksheet Patient Problems: Problems Problem Status Onset Syncope Acute Anemia Acute Abnormal EKG Acute Fatigue Acute Pleural effusion Acute Nonsustained ventricular tachycardia Acute
[2018-08-14] MEDS: GABAPENTIN 300 MG CAP PO SCH (21:29)
[2018-08-14] MEDS: MELATONIN 3 MG TAB PO SCH (21:29)
[2018-08-14] MEDS: ATORVASTATIN CALCIUM 40 MG TAB PO SCH (21:29)
[2018-08-15] MEDS: oxyCODONE IR 5 MG TAB PO PRN (04:01)
[2018-08-15] MEDS: MBX SOLN 30 ML BOTTLE PO PRN (08:33)
--- NOTE | 2018-08-15 08:59 | CPEKG ---
Test Reason : Post heart cath Blood Pressure : / mmHG Vent. Rate : 103 BPM Atrial Rate : 103 BPM P-R Int : 149 ms QRS Dur : 098 ms QT Int : 366 ms P-R-T Axes : 077 -05 085 degrees QTc Int : 479 ms Sinus tachycardia Low voltage, extremity leads Non-specific change in ST segment in anterior lateral leads. Borderline prolonged QT interval Confirmed by Jorje Leonard ([id number]) on 08/15/2018 8:58:36 AM Referred By: Siena Chew Confirmed By:Jorje Leonard
[2018-08-15] MEDS: DOCUSATE SODIUM 100 MG CAP PO SCH ×2 (09:41→20:18)
[2018-08-15] MEDS: FAMOTIDINE 20 MG TAB PO SCH (09:42)
[2018-08-15] MEDS: ACETAMINOPHEN 325 MG TAB PO SCH ×3 (09:43→21:46)
[2018-08-15] MEDS: LIDOCAINE TP SCH ×3 (09:45→20:36)
[2018-08-15] MEDS: [UNRECOGNIZED DRUG - OTHER] TP SCH ×3 (09:45→20:36)
[2018-08-15] MEDS: CARVEDILOL 3.125 MG TAB PO SCH ×2 (10:38→16:58)
[2018-08-15] MEDS: FERROUS SULFATE 325 MG TAB PO SCH ×2 (10:40→20:18)
[2018-08-15] MEDS: CLOPIDOGREL BISULFATE 75 MG TAB PO SCH (10:57)
[2018-08-15] MEDS: ASPIRIN 81 MG CHEWABLE TAB PO SCH (10:57)
[2018-08-15] MEDS: ENOXAPARIN 30 MG/0.3 ML SYR SC SCH (10:58)
[2018-08-15] MEDS: NS 1,000 ML IV SCH ×2 (10:58→11:51)
--- NOTE | 2018-08-15 13:51 | HOSPPROG ---
Hospitalist Progress Note Assessment/Plan: 73yo M recently diagnosed with metastatic colon cancer and CAD here with chest pain. Course complicated by CURT. #CURT: Cr worsening, suspect he is dry, also received contrast - Urine studies, renal ultrasound - Additional IVF today, Cr is worse -check cxr for volume status #CAD, chest pain: S/p 2 BMS to OM. - Now on plavix. Continue aspirin, statin, beta sharon #Arteriotomy site bleeding: Resolved with fem-stop. #Systolic CHF 2/2 ICM: LVEF 35%. Has pitting edema but do not think cardiac related. - Hold on diuresis - Continue coreg, not on ACEi or MRA #cough: -cxr per above -prn meds #Hyponatremia: Down slightly - Rechecking urine studies. As above, plan for fluids #Anemia: cont iron #Metastatic colon cancer: Mets to liver, lung. S/p sigmoid resection with anastomosis. - Oncology consulted last admit, planning on chemo 4-6 weeks after surgery ( Dr Smith) #AAA: 5.7cm #COPD: No acute exacerbation. Albuterol prn #Peripheral edema: Most likely r/t hypoalbuminemia. Mgmt per above. #Deconditioning: PT/OT. He is very weak. VTE ppx: SCDs, can likely resume pharmacologic tomorrow if H/H stable Code: full Dispo: Remain inpatient Subjective: no cp. + cough. Cr is elevated. Objective: Vital Signs Temp Pulse Resp BP Pulse Ox 37.0 C 108 H 16 96/63 L 92 08/15/18 11:37 08/15/18 11:37 08/15/18 11:37 08/15/18 11:37 08/15/18 11:37 Laboratory Results 08/15/18 04:18 08/15/18 04:18 08/14/18 08/15/18 08/16/18 05:59 05:59 05:59 Intake Total 720 1150 Output Total 275 225 Balance 445 925 PT 14.7 SEC (12.0-15.0) 08/11/18 18:00 INR 1.20 (0.83-1.16) H 08/11/18 18:00 - Physical Exam Constitutional: no apparent distress Eyes: PERRL, EOMI Ears, Nose, Mouth, Throat: moist mucous membranes, hearing normal Cardiovascular: regular rate and rhythym, edema Respiratory: no respiratory distress, no rales or rhonchi, clear to auscultation Gastrointestinal: normoactive bowel sounds, soft, non-tender abdomen Skin: warm Musculoskeletal: generalized weakness Neurologic: AAOx3 Psychiatric: interacting appropriately, not anxious, not encephalopathic Lymph, Heme, Immunologic: No petechiae ICD10 Worksheet Patient Problems: Problems Problem Status Onset Fatigue Acute Nonsustained ventricular tachycardia Acute Pleural effusion Acute Abnormal EKG Acute Anemia Acute Syncope Acute
[2018-08-15] MEDS ORDERED: BENZONATATE 100 MG CAP PO PRN (13:52)
--- NOTE | 2018-08-15 14:36 | PDCARPN ---
Cardiology Progress Note Assessment/Plan: 84 y/o male with recently identified coronary artery disease, ischemic cardiomyopathy, and stage IV metastatic colon cancer. During a hospital admission earlier this month, he underwent resection of his primary sigmoid carcinoma which was obstructive. He was discharged to rehabilitation. Readmitted 08/11 with profound weakness, dyspnea on exertion, chest discomfort, and nonsustained VT. Coronary Artery Disease: Cardiac catheterization performed during his prior hospital stay demonstrated chronic total occlusion of the circumflex and non- flow-limiting CAD in other territories. PCI was deferred at that time because if a significant anemia which led to the discovery of his colon cancer. He underwent PCI of the chronically occluded circumflex on 08/12. The final outcome was excellent. He received 2 bare-metal stents. (Bare-metal stents were chosen in order to minimize the time required on dual antiplatelet therapy in light of his recent cancer diagnosis and the potential need for additional invasive/ surgical procedures.) - Continue secondary prevention measures. Statin therapy was initially deferred because of the extensive hepatic involvement of his cancer but has now been started. - DAPT for at least 30 days Cardiomyopathy: He has an ischemic cardiomyopathy with an ejection fraction of approximately 40%. He appears to be volume compensated. - Continue current medications. Can consider institution of additional medicines that would comprise a usual cardiomyopathy/CHF regimen as his clinical status allows. - IV or PO furosemide as needed if he develops signs of fluid retention. Nonsustained Ventricular Tachycardia: He had an 11-beat run of nonsustained VT on August 11. None since. - Continue beta sharon therapy. Disposition: Discharge to be determined by resolution of other acute medical problems. Is table from a CV standpoint. - Will arrange a f/u with me once he gets closer to discharge. 08/15/18 14:30 Subjective: No cardiac complaints. Reviewed/Discussed With: family Objective: Vital Signs (8 Hrs) Temp Pulse Resp BP Pulse Ox 08/15/18 11:37 37.0 C 108 H 16 96/63 L 92 08/15/18 10:38 109 H 123/74 H 08/15/18 08:00 36.9 C 101 H 12 123/74 H 93 Intake/Output (24 Hrs) 08/14/18 08/15/18 08/16/18 05:59 05:59 05:59 Intake Total 720 1150 Output Total 275 225 Balance 445 925 Intake: Oral (ml) 720 1150 IV Intake (ml) 0 Output: Urine (ml) 275 225 Catheter 275 225 Other: Weight 67.5 kg 71 kg Number of Stools Bedside Commode 1 Incontinence 1 Bladder Scan Volume (ml) Bedside Commode 280 Catheter 351 Result Diagrams: 08/15/18 04:18 08/15/18 04:18 - Physical Exam Constitutional: no apparent distress Eyes: anicteric sclera Ears, Nose, Mouth, Throat: moist mucous membranes Cardiovascular: regular rate and rhythm, no murmurs Respiratory: clear to auscultate bilat Gastrointestinal: normoactive bowel sounds, no tenderness, no masses Skin: no rashes, other (1-2+ edema) Neurologic: AAOx3 Psychiatric: not anxious ICD10 Worksheet Patient Problems: Problems Problem Status Onset Fatigue Acute Nonsustained ventricular tachycardia Acute Pleural effusion Acute Abnormal EKG Acute Anemia Acute Syncope Acute
[2018-08-15] MEDS: NICOTINE 14 MG/24 HR PATCH TD SCH (16:59)
[2018-08-15] MEDS: GABAPENTIN 300 MG CAP PO SCH (20:18)
[2018-08-15] MEDS: ATORVASTATIN CALCIUM 40 MG TAB PO SCH (20:18)
[2018-08-15] MEDS: MELATONIN 3 MG TAB PO SCH (20:36)
[2018-08-15] MEDS: TEMAZEPAM 15 MG CAP PO PRN (23:06)
[2018-08-16 04:51] LABS: PLATELET COUNT 259 10^3/uL (150-400)
[2018-08-16] MEDS: CLOPIDOGREL BISULFATE 75 MG TAB PO SCH (09:29)
[2018-08-16] MEDS: CARVEDILOL 3.125 MG TAB PO SCH ×2 (09:29→17:08)
[2018-08-16] MEDS: ASPIRIN 81 MG CHEWABLE TAB PO SCH (09:31)
[2018-08-16] MEDS: ACETAMINOPHEN 325 MG TAB PO SCH ×3 (09:31→20:29)
[2018-08-16] MEDS: [UNRECOGNIZED DRUG - OTHER] TP SCH ×3 (10:25→20:22)
[2018-08-16] MEDS: LIDOCAINE TP SCH ×3 (10:25→20:22)
[2018-08-16] MEDS: NS 1,000 ML IV SCH (11:03)
--- NOTE | 2018-08-16 12:53 | PDCARPN ---
Cardiology Progress Note Assessment/Plan: 84 y/o male with recently identified coronary artery disease, ischemic cardiomyopathy, and stage IV metastatic colon cancer. During a hospital admission earlier this month, he underwent resection of his primary sigmoid carcinoma which was obstructive. He was discharged to rehabilitation. Readmitted 08/11 with profound weakness, dyspnea on exertion, chest discomfort, and nonsustained VT. Coronary Artery Disease: Cardiac catheterization performed during his prior hospital stay demonstrated chronic total occlusion of the circumflex and non- flow-limiting CAD in other territories. PCI was deferred at that time because if a significant anemia which led to the discovery of his colon cancer. He underwent PCI of the chronically occluded circumflex on 08/12. The final outcome was excellent. He received 2 bare-metal stents. (Bare-metal stents were chosen in order to minimize the time required on dual antiplatelet therapy in light of his recent cancer diagnosis and the potential need for additional invasive/ surgical procedures.) - Continue secondary prevention measures. Statin therapy was initially deferred because of the extensive hepatic involvement of his cancer but has now been started. - DAPT for at least 30 days Cardiomyopathy: He has an ischemic cardiomyopathy with an ejection fraction of approximately 40%. He appears to be volume compensated. - With the decline in his overall status, will ask for limited echo to reassess LVEF post-PCI. - IV or PO furosemide as needed if he develops signs of fluid retention. Nonsustained Ventricular Tachycardia: He had an 11-beat run of nonsustained VT on August 11. None since. - Continue beta sharon therapy. Disposition: His overall clinical status has taken a turn for the worse. Initially, he appeared to "rally" for a day or two after PCI procedure. Today, he is minimally responsive. His renal function has deteriorated significantly. Apparently, the topic of palliative care/hospice has been broached with the family. 08/16/18 12:44 Subjective: Somnolent. Does not respond to voice. Reviewed/Discussed With: family Objective: Vital Signs (8 Hrs) Temp Pulse Resp BP Pulse Ox 08/16/18 11:19 36.7 C 92 10 L 92/59 L 98 08/16/18 09:29 103 H 124/79 H 08/16/18 07:22 36.3 C 99 12 124/79 H 96 Intake/Output (24 Hrs) 08/15/18 08/16/18 08/17/18 05:59 05:59 05:59 Intake Total 1150 700 Output Total 225 885 Balance 925 -185 Intake: Oral (ml) 1150 250 IV Infused (ml) 450 Ns 1,000 ml @ 75 mls/hr 450 IV CONT ARLEEN Rx#: [id number] Output: Urine (ml) 225 885 Catheter 225 885 Other: Weight 71 kg Bladder Scan Volume (ml) Bedside Commode 280 Result Diagrams: 08/16/18 03:44 08/16/18 03:44 - Physical Exam Constitutional: other (Somnolent/obtunded.) Eyes: anicteric sclera Ears, Nose, Mouth, Throat: moist mucous membranes Cardiovascular: regular rate and rhythm, no murmurs Respiratory: clear to auscultate bilat (anteriorly) Gastrointestinal: normoactive bowel sounds Neurologic: other (Does not respond to voice.) ICD10 Worksheet Patient Problems: Problems Problem Status Onset Syncope Acute Anemia Acute Abnormal EKG Acute Fatigue Acute Pleural effusion Acute Nonsustained ventricular tachycardia Acute
--- NOTE | 2018-08-16 13:00 | PDCARPN ---
Cardiology Progress Note Assessment/Plan: 84 y/o male with recently identified coronary artery disease, ischemic cardiomyopathy, and stage IV metastatic colon cancer. During a hospital admission earlier this month, he underwent resection of his primary sigmoid carcinoma which was obstructive. He was discharged to rehabilitation. Readmitted 08/11 with profound weakness, dyspnea on exertion, chest discomfort, and nonsustained VT. Coronary Artery Disease: Cardiac catheterization performed during his prior hospital stay demonstrated chronic total occlusion of the circumflex and non- flow-limiting CAD in other territories. PCI was deferred at that time because if a significant anemia which led to the discovery of his colon cancer. He underwent PCI of the chronically occluded circumflex on 08/12. The final outcome was excellent. He received 2 bare-metal stents. (Bare-metal stents were chosen in order to minimize the time required on dual antiplatelet therapy in light of his recent cancer diagnosis and the potential need for additional invasive/ surgical procedures.) - Continue secondary prevention measures. Statin therapy was initially deferred because of the extensive hepatic involvement of his cancer but has now been started. - DAPT for at least 30 days Cardiomyopathy: He has an ischemic cardiomyopathy with an ejection fraction of approximately 40%. He appears to be volume compensated. - With the decline in his overall status, will ask for limited echo to reassess LVEF post-PCI. - IV or PO furosemide as needed if he develops signs of fluid retention. Nonsustained Ventricular Tachycardia: He had an 11-beat run of nonsustained VT on August 11. None since. - Continue beta sharon therapy. Disposition: His overall clinical status has taken a turn for the worse. Initially, he appeared to "rally" for a day or two after PCI procedure. Today, he is minimally responsive. His renal function has deteriorated significantly. Apparently, the topic of palliative care/hospice has been broached with the family. 08/16/18 13:00 Objective: Vital Signs (8 Hrs) Temp Pulse Resp BP Pulse Ox 08/16/18 11:19 36.7 C 92 10 L 92/59 L 98 08/16/18 09:29 103 H 124/79 H 08/16/18 07:22 36.3 C 99 12 124/79 H 96 Intake/Output (24 Hrs) 08/15/18 08/16/18 08/17/18 05:59 05:59 05:59 Intake Total 1150 700 Output Total 225 885 Balance 925 -185 Intake: Oral (ml) 1150 250 IV Infused (ml) 450 Ns 1,000 ml @ 75 mls/hr 450 IV CONT ARLEEN Rx#: [id number] Output: Urine (ml) 225 885 Catheter 225 885 Other: Weight 71 kg Bladder Scan Volume (ml) Bedside Commode 280 Result Diagrams: 08/16/18 03:44 08/16/18 03:44 ICD10 Worksheet Patient Problems: Problems Problem Status Onset Fatigue Acute Nonsustained ventricular tachycardia Acute Pleural effusion Acute Abnormal EKG Acute Anemia Acute Syncope Acute
[2018-08-16] MEDS: DOCUSATE SODIUM 100 MG CAP PO SCH ×2 (13:52→20:21)
--- NOTE | 2018-08-16 13:55 | HOSPPROG ---
Hospitalist Progress Note Assessment/Plan: 73yo M recently diagnosed with metastatic colon cancer and CAD here with chest pain. Course complicated by CURT. #CURT: Cr worsening -FENa is c/w prerenal -IVF is being provided but he is third spacing -will obtain nephrology consultation -additional IVF as tolerated today #CAD, chest pain: S/p 2 BMS to OM. - Now on plavix. Continue aspirin, statin, beta sharon #Arteriotomy site bleeding: Resolved with fem-stop. #Systolic CHF 2/2 ICM: LVEF 35%. Has pitting edema, likely multifactorial - Hold on diuresis for now. VSS. Cr is increasing - Continue coreg, not on ACEi or MRA #cough: -will monitor closely given IVF being provided #Dysphagia -Swallow eval -NPO #Hyponatremia #Anemia: cont iron #Metastatic colon cancer: Mets to liver, lung. S/p sigmoid resection with anastomosis. - Oncology consulted last admit, planning on chemo 4-6 weeks after surgery ( Dr Smith) #AAA: 5.7cm #COPD: No acute exacerbation. Albuterol prn #Peripheral edema: Most likely r/t hypoalbuminemia. Mgmt per above. #Deconditioning: PT/OT. He is very weak. VTE ppx: SCDs, can likely resume pharmacologic tomorrow if H/H stable Code: full Dispo: The pt cont to get worse. Overall prognosis is poor. Will consult palliative care today. Nephrology to see. Subjective: confused .Cr is worse. Edema is worse Objective: Vital Signs Temp Pulse Resp BP Pulse Ox 36.7 C 92 10 L 92/59 L 98 08/16/18 11:19 08/16/18 11:19 08/16/18 11:19 08/16/18 11:19 08/16/18 11:19 Laboratory Results 08/16/18 03:44 08/16/18 03:44 08/15/18 08/16/18 08/17/18 05:59 05:59 05:59 Intake Total 1150 700 Output Total 225 885 Balance 925 -185 PT 14.7 SEC (12.0-15.0) 08/11/18 18:00 INR 1.20 (0.83-1.16) H 08/11/18 18:00 - Physical Exam Constitutional: no apparent distress, not in pain, chronically ill appearing Eyes: PERRL, EOMI Ears, Nose, Mouth, Throat: moist mucous membranes, hearing normal Cardiovascular: regular rate and rhythym, edema Respiratory: no respiratory distress, reduced air movement Gastrointestinal: normoactive bowel sounds, soft, non-tender abdomen Skin: warm Neurologic: No AAOx3 Psychiatric: encephalopathic, No interacting appropriately Lymph, Heme, Immunologic: No petechiae ICD10 Worksheet Patient Problems: Problems Problem Status Onset Fatigue Acute Nonsustained ventricular tachycardia Acute Pleural effusion Acute Abnormal EKG Acute Anemia Acute Syncope Acute
[2018-08-16] MEDS: FERROUS SULFATE 325 MG TAB PO SCH ×2 (13:57→20:21)
[2018-08-16] MEDS: FAMOTIDINE 20 MG TAB PO SCH (13:59)
[2018-08-16] MEDS: ENOXAPARIN 30 MG/0.3 ML SYR SC SCH (13:59)
[2018-08-16] MEDS: MBX SOLN 30 ML BOTTLE PO PRN (14:43)
[2018-08-16] MEDS: NICOTINE 14 MG/24 HR PATCH TD SCH (17:08)
[2018-08-16] MEDS: ATORVASTATIN CALCIUM 40 MG TAB PO SCH (20:21)
[2018-08-16] MEDS: GABAPENTIN 300 MG CAP PO SCH (20:21)
[2018-08-16] MEDS: MELATONIN 3 MG TAB PO SCH (20:21)
[2018-08-17] MEDS: NS 1,000 ML IV SCH (00:17)
[2018-08-17] MEDS: HEPARIN 5,000 UNIT/0.5 ML INJ SC SCH ×3 (05:35→21:25)
--- NOTE | 2018-08-17 07:55 | SOAPPROG ---
SOAP Progress Note Assessment/Plan: Assessment: CURT due to contrast after PTCI of Cx artery, creat stable to a bit improved today CKD 3 due to HTN and vascular disease recent diagnosis of colon cancer S/P resection and primary reanastamosis Plan: continue hydration as is no urgent HD needs suspect will continue to recover over next several days encouraged nutrition encouraged up and around 08/17/18 07:52 Subjective: didn't sleep well last night thirsty no cp sob nausea or vomiting tired today spirits good Objective: Vital Signs Temp Pulse Resp BP Pulse Ox 36.8 C 97 12 99/63 L 97 08/17/18 07:04 08/17/18 07:04 08/17/18 07:04 08/17/18 07:04 08/17/18 07:04 Laboratory Results 08/16/18 03:44 08/17/18 03:50 08/16/18 08/17/18 08/18/18 05:59 05:59 05:59 Intake Total 700 1778 Output Total 885 600 Balance -185 1178 PT 14.7 SEC (12.0-15.0) 08/11/18 18:00 INR 1.20 (0.83-1.16) H 08/11/18 18:00 Physical Exam - Physical Exam General Appearance: thin, other (cachectic) Neck: normal inspection Respiratory: crackles, rhonchi, No wheezing Cardiac/Chest: regular rate, rhythm, edema, systolic murmur Abdomen: normal bowel sounds, non-tender, soft Extremities: swelling Neuro/Psych: alert, oriented x 3 ICD10 Worksheet Patient Problems: Problems Problem Status Onset Fatigue Acute Nonsustained ventricular tachycardia Acute Pleural effusion Acute Abnormal EKG Acute Anemia Acute Syncope Acute
[2018-08-17] MEDS: [UNRECOGNIZED DRUG - OTHER] TP SCH ×3 (08:01→21:38)
[2018-08-17] MEDS: LIDOCAINE TP SCH ×3 (08:01→21:38)
[2018-08-17] MEDS: ASPIRIN 81 MG CHEWABLE TAB PO SCH (08:06)
[2018-08-17] MEDS: FERROUS SULFATE 325 MG TAB PO SCH ×2 (08:06→21:23)
[2018-08-17] MEDS: CLOPIDOGREL BISULFATE 75 MG TAB PO SCH (08:06)
[2018-08-17] MEDS: ACETAMINOPHEN 325 MG TAB PO SCH ×3 (08:06→21:22)
[2018-08-17] MEDS: CARVEDILOL 3.125 MG TAB PO SCH ×2 (08:06→18:28)
[2018-08-17] MEDS: DOCUSATE SODIUM 100 MG CAP PO SCH ×2 (08:06→21:24)
--- NOTE | 2018-08-17 08:22 | GCON ---
[f rep st] CONSULTATION DATE OF CONSULTATION: 08/16/2018 REASON FOR CONSULTATION: Opinion regarding acute kidney injury. HISTORY OF PRESENT ILLNESS: The patient is a very pleasant 73-year-old gentleman who was recently di agnosed with colon cancer. The patient has known stage 3 chronic kidney disease with a serum creatin ine in the low 1s. The patient underwent resection of his colon cancer. During the course of his ev aluation, he was noted to have coronary artery disease. The patient underwent cardiac catheterizatio n and stent placement in the circumflex artery on 08/12/2018. On 08/12, his serum creatinine was 1.3 , the following day 1.4, the next day 1.8, the next 2.3, and on 08/16/2018, 2.5. The patient feels generally poorly. He has had a hard time recovering from his colon cancer surgery, he did have a primary reanastomosis at the time of surgery. Currently, he has some shortness of jozef ath. No fevers, chills, nausea, vomiting. No chest pain. Has a fairly nonproductive cough. No hem optysis, hematemesis, epistaxis, abdominal pain, blurry vision, double vision, headache, orthopnea, p aroxysmal nocturnal dyspnea, palpitations, or syncope. PAST MEDICAL HISTORY: Significant for: 1. Chronic kidney disease, stage 3. Baseline serum creatinine in the low 1s. 2. Recent diagnosis of colon cancer. 3. Status post resection of colon cancer with primary reanastomosis. 4. Hypertension. 5. Coronary artery disease. 6. Recent coronary artery stent. 7. History of gastroesophageal reflux disease. 8. Hyperlipidemia. MEDICATIONS: Include: 1. Aspirin 81 mg a day. 2. Tylenol p.r.n. 3. Lipitor 40 mg a day. 4. Coreg 3.125 mg twice daily. 5. Plavix 75 mg daily. 6. Pepcid 20 mg every other day. 7. Neurontin 300 mg at bedtime. 8. Subcutaneous heparin. 9. Normal saline to run at 75 cc/hour. 10. Nicoderm. 11. Oxycodone. ALLERGIES: None known. FAMILY HISTORY: Negative for coronary disease. SOCIAL HISTORY: He is , he has 3 children. He has not had any tobacco for about 5 years. 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 REVIEW OF SYSTEMS: A complete 12-point review of systems was performed with pertinent positives and negatives as per the previous sections. PHYSICAL EXAMINATION: VITAL SIGNS: Blood pressure 92/59, pulse 92, temp 36.7, respirations 10. Uri ne output 885 cc. GENERAL: He is moderately ill-appearing, cachectic, but answers questions appropr iately. HEENT: Pupils are reactive. Extraocular movements are intact. Mucous membranes are somewh at dry. NECK: No lymphadenopathy or thyromegaly. HEART: Regular. Grade 1/6 systolic murmur. No rub. No S3. LUNGS: Occasional rales in the bases. No rhonchi or wheezes. ABDOMEN: Bowel sounds are positive. Soft, nontender, nondistended. EXTREMITIES: Positive for edema. No cyanosis or club nikhil. NEUROLOGIC: No asterixis. SKIN: Changes of arterial insufficiency in his lower extremities bilaterally. LYMPH: No palpable lymphadenopathy or lymphedema. MUSCULOSKELETAL: No effusions or t enderness. LABORATORY: Serum sodium 128, potassium 4.6, chloride 95, CO2 25, BUN 39, creatinine 2.5, glucose 83 . Urinalysis: Specific gravity greater than 1.035, pH 5, +1 protein, +3 blood, +2 bacteria, cultures underway. AST 114, ALT 34, calcium 7.5, albumin 2, alkaline phosphatase 1349. IMPRESSION: 1. Acute kidney injury after heart catheterization, I suspect this is due to contrast induced nephro amberly. 2. Chronic kidney disease, stage 3, baseline creatinine 1.3. 3. Coronary artery disease, recent (08/12/2018) coronary artery stent placement. 4. Plavix therapy. 5. Recent colon cancer diagnosis with primary resection. RECOMMENDATIONS: 1. I suspect that over the course of the next several days, we will start to see an improvement in h is serum creatinine, I expect him to get back down to his baseline of 1.3. 2. Continue his IV fluids as it is for now. 3. He needs to get up and around. 4. Better nutrition. 5. Await culture results from his urine done on 08/14. Thank you for allowing me to participate in the care of your patient. If there are any questions, pl ease do not hesitate to contact us. We will be following along with you. /[id number]/MODL
--- NOTE | 2018-08-17 12:06 | ASMTCMCOM ---
CM Note CM Note Notes: 08/17/2018 Case Management Note Discussed pt during rounds this morning. and family member present. Pt seen by Flaquito VAZQUEZ yesterday (08/16/2018). Please see notes for details. Outpatient palliative is not covered by insurance plan. Faxed updates to [facility]. Requested authorization. FMLA paperwork returned to . Case Management d[facility] poc[facility]. Case Management to follow. Date Signed: 08/17/2018 12:05 PM Electronically Signed By:Sabrina Hamm RN
--- NOTE | 2018-08-17 12:37 | HOSPPROG ---
Hospitalist Progress Note Assessment/Plan: 73yo M recently diagnosed with metastatic colon cancer and CAD here with chest pain. Course complicated by CURT. #CURT on chronic (baseline Cr is 1.3) -FENa is c/w prerenal. Previous contrast study probably also playing a role -IVF is being provided but he is third spacing. -Nephrology following #CAD, chest pain: S/p 2 BMS to OM. - Now on plavix. Continue aspirin, statin, beta sharon #Arteriotomy site bleeding: Resolved with fem-stop. #Systolic CHF 2/2 ICM: LVEF 35%. Has pitting edema, likely multifactorial - Hold on diuresis for now. VSS. Cr is increasing - Continue coreg, not on ACEi or MRA #cough: -will monitor closely given IVF being provided #Dysphagia -Swallow eval -NPO #Hyponatremia #Anemia: cont iron #Metastatic colon cancer: Mets to liver, lung. S/p sigmoid resection with anastomosis. - Oncology consulted last admit, planning on chemo 4-6 weeks after surgery ( Dr Smith) #AAA: 5.7cm #COPD: No acute exacerbation. Albuterol prn #Peripheral edema: Most likely r/t hypoalbuminemia. Mgmt per above. #Deconditioning: PT/OT. He is very weak. VTE ppx: Heparin Code: full Plan: Overall the pt looks better today than he has over the last 3 days. Hydration status has improved. IVF will continue today but will decrease the dose to 50 ml per hour. He is not taking in much PO. He does have some throat pain and we will provide a analgesic spray. Resp bell he is tolerating the IVF and is on 2 L. this will need to be monitored closely. Palliative care met with the family yesterday. He is still a full code. The pt has multiple comorbidities. While he will likely improve acutely, he needs Palliative care. Subjective: no cp or sob. some cough. sore throat. still with leg swelling Objective: Vital Signs Temp Pulse Resp BP Pulse Ox 36.6 C 93 13 90/59 L 88 L 08/17/18 11:29 08/17/18 11:29 08/17/18 11:29 08/17/18 11:29 08/17/18 11:29 Laboratory Results 08/16/18 03:44 08/17/18 03:50 08/16/18 08/17/1808/18/19 05:59 05:59 05:59 Intake Total 700 1778 Output Total 885 600 Balance -185 1178 PT 14.7 SEC (12.0-15.0) 08/11/18 18:00 INR 1.20 (0.83-1.16) H 08/11/18 18:00 - Physical Exam Constitutional: no apparent distress Eyes: PERRL, EOMI Ears, Nose, Mouth, Throat: moist mucous membranes, hearing normal Cardiovascular: regular rate and rhythym, edema Respiratory: reduced air movement, rhonchi Gastrointestinal: normoactive bowel sounds, soft, non-tender abdomen Skin: warm Neurologic: No AAOx3 Psychiatric: encephalopathic (improving) Lymph, Heme, Immunologic: No petechiae ICD10 Worksheet Patient Problems: Problems Problem Status Onset Fatigue Acute Nonsustained ventricular tachycardia Acute Pleural effusion Acute Abnormal EKG Acute Anemia Acute Syncope Acute
[2018-08-17] MEDS ORDERED: BENZOCAINE UNIT DOSE SPRAY HURRICAINE MM PRN (12:38)
[2018-08-17] MEDS ORDERED: NS 1,000 ML IV SCH (12:45)
[2018-08-17] MEDS ORDERED: BISACODYL 10 MG SUPP PR PRN (14:20)
[2018-08-17] MEDS: SENNOSIDES 17.6 MG/10 ML UDL PO PRN (15:46)
--- NOTE | 2018-08-17 18:15 | PDCARPN ---
Cardiology Progress Note Assessment/Plan: 84 y/o male with recently identified coronary artery disease, ischemic cardiomyopathy, and stage IV metastatic colon cancer. During a hospital admission in July, he underwent resection of his primary sigmoid carcinoma which was obstructive. He was discharged to rehabilitation. Readmitted 08/11 with profound weakness, dyspnea on exertion, chest discomfort, and nonsustained VT. Coronary Artery Disease: Cardiac catheterization performed during his prior hospital stay demonstrated chronic total occlusion of the circumflex and non- flow-limiting CAD in other territories. PCI was deferred at that time because if a significant anemia which led to the discovery of his colon cancer. He underwent PCI of the chronically occluded circumflex on 08/12. The final outcome was excellent. He received 2 bare-metal stents. (Bare-metal stents were chosen in order to minimize the time required on dual antiplatelet therapy in light of his recent cancer diagnosis and the potential need for additional invasive/ surgical procedures.) - Continue secondary prevention measures. Statin therapy was initially deferred because of the extensive hepatic involvement of his cancer but has now been started. - DAPT for at least 30 days Cardiomyopathy: He has an ischemic cardiomyopathy with an ejection fraction of approximately 40%. He has mild edema and BNP is increasing. - Will ask for limited echo to reassess LVEF post-PCI. - Will defer to nephrology as to if-and-when he can tolerate some diuresis. Nonsustained Ventricular Tachycardia: He had an 11-beat run of nonsustained VT on August 11. None since. - Continue beta sharon therapy. Disposition: He looks much better today than yesterday. Once other medical problems are stabilized her will likely return to rehab. 08/17/18 18:08 Reviewed/Discussed With: family Objective: Vital Signs (8 Hrs) Temp Pulse Resp BP Pulse Ox 08/17/18 15:25 93 91 L 08/17/18 15:22 36.6 C 89 10 L 98/62 L 96 08/17/18 11:29 36.6 C 93 13 90/59 L 88 L Intake/Output (24 Hrs) 08/16/18 08/17/18 08/18/18 05:59 05:59 05:59 Intake Total 700 1778 740 Output Total 885 600 Balance -185 1178 740 Intake: Oral (ml) 250 410 740 IV Infused (ml) 450 1368 Ns 1,000 ml @ 75 mls/hr 450 1368 IV CONT ARLEEN Rx#: [id number] Output: Urine (ml) 885 600 Catheter 885 600 Other: Weight 71.8 kg Result Diagrams: 08/16/18 03:44 08/17/18 03:50 - Physical Exam Constitutional: no apparent distress Eyes: anicteric sclera Ears, Nose, Mouth, Throat: moist mucous membranes Cardiovascular: regular rate and rhythm, no murmurs Respiratory: clear to auscultate bilat Gastrointestinal: normoactive bowel sounds, no tenderness, no masses Skin: other (1-2+ edema) Neurologic: AAOx3 Psychiatric: not anxious ICD10 Worksheet Patient Problems: Problems Problem Status Onset Fatigue Acute Nonsustained ventricular tachycardia Acute Pleural effusion Acute Abnormal EKG Acute Anemia Acute Syncope Acute
[2018-08-17] MEDS: NICOTINE 14 MG/24 HR PATCH TD SCH (18:28)
[2018-08-17] MEDS: GABAPENTIN 300 MG CAP PO SCH (21:23)
[2018-08-17] MEDS: ATORVASTATIN CALCIUM 40 MG TAB PO SCH (21:23)
[2018-08-17] MEDS: MELATONIN 3 MG TAB PO SCH (21:24)
[2018-08-17] MEDS: oxyCODONE IR 5 MG TAB PO PRN (23:27)
[2018-08-18 04:34] LABS: PLATELET COUNT 287 10^3/uL (150-400)
[2018-08-18] MEDS: CETIRIZINE 10 MG TAB PO SCH (04:51)
[2018-08-18] MEDS: HEPARIN 5,000 UNIT/0.5 ML INJ SC SCH ×3 (04:55→21:55)
[2018-08-18] MEDS: FAMOTIDINE 20 MG TAB PO SCH (08:55)
[2018-08-18] MEDS: CARVEDILOL 3.125 MG TAB PO SCH ×2 (08:55→17:45)
[2018-08-18] MEDS: ASPIRIN 81 MG CHEWABLE TAB PO SCH (08:56)
[2018-08-18] MEDS: LIDOCAINE TP SCH ×3 (09:56→21:54)
[2018-08-18] MEDS: [UNRECOGNIZED DRUG - OTHER] TP SCH ×3 (09:56→21:54)
--- NOTE | 2018-08-18 10:10 | HOSPPROG ---
Hospitalist Progress Note Assessment/Plan: 73 yo M recently diagnosed with metastatic colon cancer and CAD admitted with chest pain and CURT #CURT on CKD (baseline Cr is 1.3) - FENa is c/w prerenal. Previous contrast study probably also playing a role. Cr has improved with IVF's -Nephrology following #CAD, chest pain: S/p 2 BMS to OM. - Continue aspirin, plavix, statin, beta sharon #Acute on chronic hypoxemia - on 2 LPM at baseline, now on 4 LPM - STAT CXR this am #Systolic CHF 2/2 ICM: LVEF 35%. Has pitting edema, likely multifactorial. BNP was 17K on 08/16, up from 8K. - Have been holding diuresis due to pre-renal picture above - Continue coreg, not on ACEi or MRA #Arteriotomy site bleeding: Resolved with fem-stop. #Dysphagia - cleared for diet by speech #Hyponatremia #Anemia: cont iron #Metastatic colon cancer: Mets to liver, lung. S/p sigmoid resection with anastomosis. - Oncology consulted last admit, planning on chemo 4-6 weeks after surgery ( Dr Smith) #AAA: 5.7cm #COPD: No acute exacerbation. Albuterol prn #Peripheral edema: Most likely r/t hypoalbuminemia. Mgmt per above. #Deconditioning: PT/OT. He is very weak. VTE ppx: Heparin Code: full Palliative care met with the family yesterday. Subjective: Ramsey is very sleepy and confused today, a change from his baseline per his .. He has difficulty breathing. No fevers. No cough. Pain is fairly well controlled. Objective: Vital Signs Temp Pulse Resp BP Pulse Ox 36.8 C 106 H 10 L 114/80 92 08/18/18 07:05 08/18/18 07:05 08/18/18 07:05 08/18/18 07:05 08/18/18 07:05 Laboratory Results 08/18/18 03:44 08/18/18 03:44 08/17/18 08/18/18 08/19/18 05:59 05:59 05:59 Intake Total 1778 1788 Output Total 600 450 Balance 1178 1338 PT 14.7 SEC (12.0-15.0) 08/11/18 18:00 INR 1.20 (0.83-1.16) H 08/11/18 18:00 - Physical Exam Constitutional: no apparent distress, chronically ill appearing Eyes: PERRL Ears, Nose, Mouth, Throat: moist mucous membranes Cardiovascular: regular rate and rhythym Respiratory: no respiratory distress, reduced air movement, inspiratory crackles Gastrointestinal: soft, non-tender abdomen Skin: warm Musculoskeletal: other (2+b/l LE edema) Psychiatric: encephalopathic ICD10 Worksheet Patient Problems: Problems Problem Status Onset Fatigue Acute Nonsustained ventricular tachycardia Acute Pleural effusion Acute Abnormal EKG Acute Anemia Acute Syncope Acute
[2018-08-18] MEDS ORDERED: FUROSEMIDE 20 MG/2 ML VIAL IVP ONE (10:57)
--- NOTE | 2018-08-18 11:00 | HOSPPROG ---
Hospitalist Progress Note Assessment/Plan: 73 yo M recently diagnosed with metastatic colon cancer and CAD admitted with chest pain and CURT, condition deteriorating #UCRT on CKD (baseline Cr is 1.3) - FENa is c/w prerenal. Previous contrast study probably also playing a role. Cr has improved with IVF's -Nephrology following -Albumin / Lasix today #CAD, chest pain: S/p 2 BMS to OM. - Continue aspirin, plavix, statin, beta sharon #Acute on chronic hypoxemia - on 2 LPM at baseline, now on 4 LPM with increasing bibasilar effusions vs infiltrate (no fevers, nl wbc) - STAT CXR this am shows b/l infiltrates vs effusions, echo suggests effusions - Albumin/Lasix - check procalcitonin, elevated at 1.74, will treat with Zosyn and speech/ swallow eval requested #Systolic CHF 2/2 ICM: LVEF 35%. Has pitting edema, likely multifactorial. BNP was 17K on 08/16, up from 8K. - Have been holding diuresis due to pre-renal picture above - Continue coreg, not on ACEi or MRA #Metabolic encephalopathy - mentation worse this am - check ABG - consider brain imaging to r/o mets, but cannot have contrast with current Cr #Arteriotomy site bleeding: Resolved with fem-stop. #Dysphagia - cleared for diet by speech #Hyponatremia #Anemia: cont iron #Metastatic colon cancer: Mets to liver, lung. S/p sigmoid resection with anastomosis. - Oncology consulted last admit, planning on chemo 4-6 weeks after surgery ( Dr Smith) - onc consult tomorrow to readdress goals of care, doesn't seem like he'll be a candidate for treatment given his decline #AAA: 5.7cm #COPD: No acute exacerbation. Albuterol prn #Peripheral edema: Most likely r/t hypoalbuminemia. Mgmt per above. #Deconditioning: PT/OT. He is very weak. #Peterson VTE ppx: Heparin Code: full Palliative care met with the family yesterday. 20 minutes spent today discussing goals of care and code status, acknowledging worsening functional status and overall deteriorating condition in setting of advanced cancer. will discuss with 2 sons, suspects pt might wish to change to DNR. Will readdress tomorrow. Subjective: Pt very sleepy. He intermittently answers questions, but is not able to participate in goals of care discussion. He is weak, tired. Denies pain. Objective: Vital Signs Temp Pulse Resp BP Pulse Ox 36.8 C 106 H 10 L 114/80 92 08/18/18 07:05 08/18/18 07:05 08/18/18 07:05 08/18/18 07:05 08/18/18 07:05 Microbiology 08/16/18 05:10 Urine Culture - Final Urine,Clean Catch Laboratory Results 08/18/18 03:44 08/18/18 03:44 08/17/18 08/18/18 08/19/18 05:59 05:59 05:59 Intake Total 1778 1788 Output Total 600 450 Balance 1178 1338 PT 14.7 SEC (12.0-15.0) 08/11/18 18:00 INR 1.20 (0.83-1.16) H 08/11/18 18:00 - Physical Exam Constitutional: chronically ill appearing Eyes: PERRL Ears, Nose, Mouth, Throat: dry mucous membranes Cardiovascular: tachycardia Respiratory: no respiratory distress, reduced air movement, inspiratory crackles Gastrointestinal: normoactive bowel sounds, soft, non-tender abdomen Skin: warm Musculoskeletal: generalized weakness, other (2+ b/l LE pitting edema) Psychiatric: encephalopathic ICD10 Worksheet Patient Problems: Problems Problem Status Onset Fatigue Acute Nonsustained ventricular tachycardia Acute Pleural effusion Acute Abnormal EKG Acute Anemia Acute Syncope Acute
--- NOTE | 2018-08-18 11:25 | SOAPPROG ---
SOAP Progress Note Assessment/Plan: Assessment: 1. CURT - -Likely contrast nephrotoxicity after PCI of Cx artery -Cr improving with IVF 2. CKD 3 - -Due to HTN and vascular disease 3. Hem/onc - -Recent diagnosis of colon cancer S/P resection and primary reanastamosis -With lung and liver mets, possible mets to brain causing change in mental and functional status? -Onc to see to help guide goals of care 4. HF - -Worsening appearance on CXR and clinically -U Na < 5 which could be from poor cardiac outpt -OK to hold NS and start albumin/lasix -Even if some rise in Cr again will accept if it improves his clinical status overall -ABG pending Plan: 08/18/18 11:21 08/18/18 11:22 08/18/18 11:25 Subjective: Feels very weak. Worsening functional status as noted by his over the last two days. Objective: Vital Signs Temp Pulse Resp BP Pulse Ox 36.8 C 106 H 10 L 114/80 92 08/18/18 07:05 08/18/18 07:05 08/18/18 07:05 08/18/18 07:05 08/18/18 07:05 Microbiology 08/16/18 05:10 Urine Culture - Final Urine,Clean Catch Laboratory Results 08/18/18 03:44 08/18/18 03:44 08/17/18 08/18/18 08/19/18 05:59 05:59 05:59 Intake Total 1778 1788 Output Total 600 450 Balance 1178 1338 PT 14.7 SEC (12.0-15.0) 08/11/18 18:00 INR 1.20 (0.83-1.16) H 08/11/18 18:00 Physical Exam - Physical Exam General Appearance: other (lethargic, responds to voice with great effort) Respiratory: decreased breath sounds (bases) Cardiac/Chest: tachycardia (slight; regular) Abdomen: non-tender, soft Extremities: swelling (1-2+, LLE slight more than RLE) ICD10 Worksheet Patient Problems: Problems Problem Status Onset Fatigue Acute Nonsustained ventricular tachycardia Acute Pleural effusion Acute Abnormal EKG Acute Anemia Acute Syncope Acute
[2018-08-18] MEDS: ALBUMIN 25% 100 ML IV SCH ×3 (11:39→23:16)
[2018-08-18] MEDS: CLOPIDOGREL BISULFATE 75 MG TAB PO SCH (11:51)
--- NOTE | 2018-08-18 11:56 | PDPCPN ---
Palliative Care Progress Note Assessment/Plan: Assessment: Extensive discussion with family. Education provided regarding laboratory results. Discussion with family regarding current advanced directives. Discussed with family that there will need to be ongoing discussion regarding full cor status. Discussed the poor prognosis with regard to surviving resucitation. All questions answered. Sabino Balderas [facility] Plan: 08/18/18 11:55 Objective: Vital Signs Temp Pulse Resp BP Pulse Ox 36.6 C 94 12 91/58 L 95 08/18/18 11:50 08/18/18 11:50 08/18/18 11:50 08/18/18 11:50 08/18/18 11:50 Microbiology 08/16/18 05:10 Urine Culture - Final Urine,Clean Catch Laboratory Results 08/18/18 03:44 08/18/18 03:44 08/17/18 08/18/18 08/19/18 05:59 05:59 05:59 Intake Total 1778 1788 Output Total 600 450 Balance 1178 1338 PT 14.7 SEC (12.0-15.0) 08/11/18 18:00 INR 1.20 (0.83-1.16) H 08/11/18 18:00 ICD10 Worksheet Patient Problems: Problems Problem Status Onset Fatigue Acute Nonsustained ventricular tachycardia Acute Pleural effusion Acute Abnormal EKG Acute Anemia Acute Syncope Acute
--- NOTE | 2018-08-18 12:10 | ECHO ---
[email or web address] [id number] Main: [phone] Echocardiography Examination Transthoracic Name: BARBARA VARELA MR#: [id number] Study Date: 08/18/2018 Study Time: 10:38 AM Date of : 1945 Age: 73 year(s) Height: 172.7 cm (68 in.) Weight: 71.67 kg (158 lb.) BSA: 1.85 m2 Gender: Male Examination: Limited Echo Contrast: Image Quality: Adequate Rhythm: Heart Rate: 98 bpm BP: 114 mmHg/80 mmHg Indication: Hypoxia, reassess LVEF post-PCI Procedure Staff Referring Physician: Aerospace Engineer: Reading Physician: Girma Brasher MD Requesting Provider: Indication: Hypoxia, reassess LVEF post-PCI Measurements Chambers Label Value Normal Value LVDd, MM 5.2 cm (4.2cm - 5.9cm) LVDd, 2D 4.1 cm (4.2cm - 5.9cm) LVDs, MM 4.1 cm (2cm - 3.8cm) LVDs, 2D 3.2 cm (2.1cm - 4cm) IVSd, MM 1.1 cm (0.6cm - 0.9cm) IVSd, 2D 0.8 cm (0.6cm - 1.1cm) LVPWd, MM 1 cm (0.6cm - 1cm) LVPWd, 2D 0.9 cm (0.6cm - 1cm) LVEF, BP 42 % (55% - 70%) LVEF, 2D 42 % (54% - 74%) Conclusions Left Ventricle: The EF is visually estimated to be 40 %. The LV anterior/inferoseptal and inferlolateral appear akinetic. Pericardium: There is a large left pleural effusion. Patient: BARBARA VARELA Study Date: 08/18/2018 Page 1 of 2 10:38 AM Findings Left Ventricle: The EF is visually estimated to be 40 %. EF range is estimated at 35 % - 40 %. The LV anterior/inferoseptal and inferlolateral appear akinetic. Pericardium: There is a large left pleural effusion. Exam Details Procedure Ordered: Limited Echo Procedure Status: Routine study Image Quality: Adequate Facility Location: Cardiac Echo 1 (No Signature Object) Patient: BARBARA VARELA Study Date: 08/18/2018 Page 2 of 2 10:38 AM [id number]
--- NOTE | 2018-08-18 12:14 | PDCARPN ---
Cardiology Progress Note Chief Complaint: ICM, pleural effusion, fluid volume overload Assessment/Plan: Assessment: 1. Pleural effusion: noted on echo and CXR today, Sp02 92-95% on 4L NC today 2. BLE pitting edema: likely multifactorial related to fluid volume overload and hypoalbunemia. Albumin 1.8 today 3. Ischemic cardiomyopathy: stable LVEF by preliminary review of limited echo today, LVEF roughly 35% 4. CAD s/p Cx PCI 08/12 5. Sigmoid carcinoma: s/p resection 07/2018 6. Failure to thrive: somewhat obtunded today, poor appetite, marked generalized weakness Plan: 1. Lasix and albumin as per Nephrology, DC IV fluids 2. Encouraged family to discuss COR status and patient's goals of care in greater detail today 3. Cardiology will continue to follow 08/18/18 12:17 Subjective: Obtunded this AM, disoriented Reviewed/Discussed With: multidisciplinary team Time Spent with Patient: greater than 35 minutes Time Spent with Patient: Greater than 35 minutes spent on this patients care, greater than 50% of time spent counseling, educating, and coordinating care regarding the above mentioned plan. Objective: Vital Signs (8 Hrs) Temp Pulse Resp BP Pulse Ox 08/18/18 11:50 36.6 C 94 12 91/58 L 95 08/18/18 07:05 36.8 C 106 H 10 L 114/80 92 Intake/Output (24 Hrs) 08/17/18 08/18/18 08/19/18 05:59 05:59 05:59 Intake Total 1778 1788 Output Total 600 450 Balance 1178 1338 Intake: Oral (ml) 410 940 IV Infused (ml) 1368 848 Ns 1,000 ml @ 50 mls/hr 848 IV CONT ARLEEN Rx#: [id number] Ns 1,000 ml @ 75 mls/hr 1368 IV CONT ARLEEN Rx#: [id number] Output: Urine (ml) 600 450 Catheter 600 450 Other: Weight 71.8 kg Result Diagrams: 08/18/18 03:44 08/18/18 03:44 - Physical Exam Ears, Nose, Mouth, Throat: dry mucous membranes Cardiovascular: regular rate and rhythm Respiratory: inspiratory crackles Skin: other (BLE Pitting Edema) Neurologic: other (disoriented to place, time, and situation) Psychiatric: other (obtunded) ICD10 Worksheet Patient Problems: Problems Problem Status Onset Fatigue Acute Nonsustained ventricular tachycardia Acute Pleural effusion Acute Abnormal EKG Acute Anemia Acute Syncope Acute
[2018-08-18] MEDS: FERROUS SULFATE 325 MG TAB PO SCH ×2 (13:24→21:54)
[2018-08-18] MEDS: ACETAMINOPHEN 325 MG TAB PO SCH ×3 (13:25→21:53)
[2018-08-18] MEDS: DOCUSATE SODIUM 100 MG CAP PO SCH ×2 (13:25→21:54)
[2018-08-18] MEDS: PIPERACILLIN/TAZO 2.25 GM/DEX 50 ML IV SCH ×2 (14:16→19:33)
[2018-08-18] MEDS: NICOTINE 14 MG/24 HR PATCH TD SCH (17:51)
[2018-08-18] MEDS: ATORVASTATIN CALCIUM 40 MG TAB PO SCH (21:54)
[2018-08-18] MEDS: GABAPENTIN 300 MG CAP PO SCH (21:54)
[2018-08-18] MEDS: MELATONIN 3 MG TAB PO SCH (21:54)
[2018-08-19] MEDS: PIPERACILLIN/TAZO 2.25 GM/DEX 50 ML IV SCH ×5 (00:45→23:14)
[2018-08-19] MEDS: HEPARIN 5,000 UNIT/0.5 ML INJ SC SCH ×3 (05:34→21:57)
[2018-08-19] MEDS: ALBUMIN 25% 100 ML IV SCH ×3 (05:34→18:42)
--- NOTE | 2018-08-19 08:51 | PDCARPN ---
Cardiology Progress Note Chief Complaint: Failure to thrive Assessment/Plan: Assessment: 1. Pleural effusion: noted on echo and CXR yesterday 08/19, diureses initiated per nephrology yesterday, maintaining 02 sats with 4L supplemental 02 2. BLE pitting edema and scrotal edema: likely multifactorial related to fluid volume overload and hypoalbuminemia. Albumin improved to 2.3 today 3. Ischemic cardiomyopathy: stable LVEF by preliminary review of limited echo yesterday, LVEF roughly 35% 4. CAD s/p Cx PCI 08/12 5. Sigmoid carcinoma: s/p resection 07/2018 6. Failure to thrive: less obtunded today although still with poor appetite and marked generalized weakness Plan: 1. Continue diuresis and albumin as per Nephrology and hospitalist service 2. Continue ongoing discussions regarding COR status and patient's goals of care 3. Cardiology will continue to follow 08/19/18 08:52 Objective: Vital Signs (8 Hrs) Temp Pulse Resp BP Pulse Ox 08/19/18 08:00 36.6 C 90 18 91/54 L 99 08/19/18 03:32 36.6 C 95 19 93/62 L 94 Intake/Output (24 Hrs) 08/18/18 08/19/18 08/20/18 05:59 05:59 05:59 Intake Total 1788 1405 Output Total 450 600 Balance 1338 805 Intake: Oral (ml) 940 450 IV Infused (ml) 848 955 Albumin 25% 100 ml @ As 400 Directed IV Q6HRS ARLEEN Rx# :[id number] Ns 1,000 ml @ 50 mls/hr 848 300 IV CONT ARLEEN Rx#: [id number] Piperacillin/Tazo 2.25 gm 255 /Dex 50 ml @ 100 mls/hr IV Q6 ARLEEN Rx#:[id number] Output: Urine (ml) 450 600 Catheter 450 600 Other: Weight 71.8 kg Output Comment Incontinence leaking around catheter; replaced. getting ferrous sulfate Number of Voids Catheter 1 Incontinence 2 Result Diagrams: 08/18/18 03:44 08/19/18 03:45 - Physical Exam Constitutional: other (alert, no apparent distress, oriented to person, place, and situation) Ears, Nose, Mouth, Throat: dry mucous membranes Cardiovascular: regular rate and rhythm Respiratory: other (diminished, crackles) Skin: other (BLE pitting edema, scrotal edema) Neurologic: CN II-XII grossly intact, other (Oriented to person, place, and situation) Psychiatric: cooperative, interactive ICD10 Worksheet Patient Problems: Problems Problem Status Onset Fatigue Acute Nonsustained ventricular tachycardia Acute Pleural effusion Acute Abnormal EKG Acute Anemia Acute Syncope Acute
[2018-08-19] MEDS: CARVEDILOL 3.125 MG TAB PO SCH ×2 (09:54→18:40)
[2018-08-19] MEDS: CLOPIDOGREL BISULFATE 75 MG TAB PO SCH (09:57)
[2018-08-19] MEDS: ASPIRIN 81 MG CHEWABLE TAB PO SCH (09:58)
[2018-08-19] MEDS: FERROUS SULFATE 325 MG TAB PO SCH ×2 (09:58→21:56)
[2018-08-19] MEDS: DOCUSATE SODIUM 100 MG CAP PO SCH ×2 (09:58→21:56)
[2018-08-19] MEDS: CETIRIZINE 10 MG TAB PO SCH (09:58)
[2018-08-19] MEDS: ACETAMINOPHEN 325 MG TAB PO SCH ×3 (09:58→21:56)
[2018-08-19] MEDS: [UNRECOGNIZED DRUG - OTHER] TP SCH ×3 (10:30→21:57)
[2018-08-19] MEDS: LIDOCAINE TP SCH ×3 (10:30→21:57)
--- NOTE | 2018-08-19 13:39 | GCON ---
[f rep st] CONSULTATION ONCOLOGY CONSULTATION NOTE DATE OF CONSULTATION: 08/19/2018 REASON FOR CONSULTATION: Metastatic colorectal cancer. HISTORY OF PRESENT ILLNESS: Mr. Newman is a 73-year-old gentleman who was recently diagnosed with a metastatic colorectal cancer. He presented to [facility] in July of this year with abdominal bloating and intermittent constipation. He was found to have an obstructing mass in the s igmoid colon. Staging CT of the chest, abdomen, and pelvis revealed multiple hepatic metastasis as w ell as a nodular mass in his right middle lobe and a small right pleural-based nodule. The patient underwent a diverting sigmoid colectomy on July 27, 2018. He did fairly well following his surgery. He was seen by our service in consultation at that time and consideration of outpatient palliative chemotherapy was discussed. The patient was transferred to a rehab center. He was receiving fairly aggressive physical therapy. He developed chest pain. He was transported back to the emergency department. His chest pain was f elt to be cardiac, and he underwent stenting of the circumflex artery during this hospital stay. Fol lowing his procedure, he developed acute renal failure, which is gradually improving. He has had let hargy, fatigue, and anorexia. He has been intermittently confused. Over the past 24-48 hours these symptoms have improved. His creatinine is improving. When seen this afternoon, he is accompanied by his and 2 of his sons. PAST MEDICAL HISTORY: 1. Recent diagnosis of metastatic colorectal cancer. 2. Coronary artery disease. PAST SURGICAL HISTORY: 1. Tonsillectomy. 2. Sigmoid colectomy July 2018. FAMILY MEDICAL HISTORY: Patient had a sister with breast cancer. His mother had myelodysplastic syn drome. SOCIAL HISTORY: The patient is to [place]. He [place] in [place] [facility]. 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 He is a former smoker, but quit 5 years ago. REVIEW OF SYSTEMS: The patient denies abdominal pain or bloating. Denies nausea, vomiting. Denies diarrhea. Denies fevers or chills. Admits to fatigue. PHYSICAL EXAM: GENERAL: Weak, elderly gentleman lying in bed, in no acute distress. HEENT: Pupils equal. Sclerae nonicteric. HEART: Regular without murmur. LUNGS: Clear anteriorly. ABDOMEN: M ild to moderately distended with normoactive bowel sounds. No palpable mass or organomegaly. It is nontender. The patient is orientated to person, place, and time, and answers questions appropriately , though is fairly lethargic. LABORATORY STUDIES: White count 7.2, hemoglobin 8.5, platelet count 287,000. Sodium 129, potassium 4.4, chloride 99, bicarb 23, BUN 31, creatinine 1.7. IMPRESSIONS: 1. Metastatic colorectal cancer with hepatic metastasis. 2. Anemia secondary to #1. 3. Coronary artery disease status post recent circumflex stent. 4. Acute renal failure (improving). 5. Fatigue and lethargy. 6. Anorexia and weight loss. Mr. Newman is a pleasant 73-year-old gentleman with a recent diagnosis of metastatic colorectal canc er with multiple hepatic metastasis and probable low volume pulmonary metastasis. He underwent a pal liative sigmoid colectomy on July 27. Overall, he has done somewhat poorly over the past month. He is now readmitted with cardiac symptoms likely due to occlusion of the circumflex artery, which has been stented. His hospital course has been complicated by acute renal failure, poor oral intake, and weakness. I had an extensive discussion with the patient, his , and 2 of his sons today. His case was also discussed with Dr. Wiley of the hospitalist service. I, again, discussed his overall diagnosis of colorectal cancer and its prognosis. The patient and savannah kathleen are quite realistic about his disease. They understand his disease is not curable and that flor tment would be palliative in intent. In general, most patients with metastatic colorectal carcinoma will respond favorably to initial pall iative chemotherapy. In his current condition, he is not a candidate for palliative chemotherapy. B oth the patient and his family are quite hopeful that his condition will improve over the next severa l weeks to allow for palliative chemotherapy. In light of his improvement over the past 24-48 hours, I think giving him some additional time to fully recover is quite reasonable. I did express to the patient's family that if he should not improve over the next 2 weeks, certainly we would need to reconsider goals of care and potentially transition to palliative care at that time. Overall, he would like to receive his therapy in [place] once he is discharged, if possible, and I w ill certainly be happy to see him in the outpatient setting. If he improves. Our service will continue to follow him closely during his hospital stay. The patient and family asked multiple questions, which were answered. Total time for today's visit was approximately 45 minutes of which greater than 50% was spent in coun seling, care coordination. /[id number]
[2018-08-19] MEDS ORDERED: FUROSEMIDE 20 MG/2 ML VIAL IVP ONE (13:40)
--- NOTE | 2018-08-19 13:41 | HOSPPROG ---
Hospitalist Progress Note Assessment/Plan: 73 yo M recently diagnosed with metastatic colon cancer and CAD admitted with chest pain and CURT #Metastatic colon cancer: Mets to liver, lung. S/p sigmoid resection with anastomosis. - Oncology consulted, consider candidacy for chemo based on course over next 2 weeks #CURT on CKD (baseline Cr is 1.3) - FENa is c/w prerenal. Previous contrast study probably also playing a role. Cr has improved with IVF's / albumin, 2.5 - -> 1.7 today -Nephrology following #CAD, chest pain: S/p 2 BMS to OM. - Continue aspirin, plavix, statin, beta sharon #Acute on chronic hypoxemia - on 2 LPM at baseline, now on 3 LPM. CXR yest personally reviewed/interp- b/l effusions +/- consolidation - cont albumin / lasix - treating for possible HCAP / aspiration with Zosyn, day 2 #Systolic CHF 2/2 ICM: LVEF 35%. Has pitting edema, likely multifactorial. BNP was 17K on 08/16, up from 8K. - Cont albumin/lasix - Continue coreg, not on ACEi or MRA #Arteriotomy site bleeding: Resolved with fem-stop. #Dysphagia - cleared for diet by speech #Hyponatremia - improving #Anemia: cont iron #AAA: 5.7cm #COPD: No acute exacerbation. Albuterol prn #Peripheral edema: Most likely r/t hypoalbuminemia. Mgmt per above. #Deconditioning: PT/OT. He is very weak. #Malnutrition: albumin down to 1.8, giving IV Albumin -dietary consult to assess nutritional goals VTE ppx: Heparin Code: full Goals of care: met with Linnette and 2 sons today separately from pt rounds. 30 minutes spent addressing goals of care and code status. They would like his previous wishes for 1 defibrillation and CPR but no intubation honored. They do not want to give up yet and want to give him a chance to get his strength back and possibly start chemo if able. They acknowledge he may not survive this but are not ready to give up and they think he wants to keep fighting. Will continue to assess goals of care. Subjective: Pt is more alert and awake today, able to converse. He is eating and drinking a little, but not adequate oral intake. complains of deep cough. Denies CP, a bit SOB. No fevers. UOP adequate. Peterson in place. Objective: Vital Signs Temp Pulse Resp BP Pulse Ox 36.6 C 90 14 90/56 L 95 08/19/18 11:49 08/19/18 11:49 08/19/18 11:49 08/19/18 11:49 08/19/18 11:49 Microbiology 08/18/18 13:35 Respiratory Panel (PCR) - Final Nasal, Sinus - Swab No Organism Detected By Pcr 08/16/18 05:10 Urine Culture - Final Urine,Clean Catch Laboratory Results 08/18/18 03:44 08/19/18 03:45 08/18/18 08/19/18 08/20/18 05:59 05:59 05:59 Intake Total 1788 1405 Output Total 450 600 Balance 1338 805 PT 14.7 SEC (12.0-15.0) 08/11/18 18:00 INR 1.20 (0.83-1.16) H 08/11/18 18:00 - Physical Exam Constitutional: chronically ill appearing Eyes: PERRL Ears, Nose, Mouth, Throat: moist mucous membranes Cardiovascular: regular rate and rhythym Respiratory: no respiratory distress, reduced air movement, inspiratory crackles Gastrointestinal: other (soft, mild distention, no r/r/g, +BS) Skin: warm Musculoskeletal: generalized weakness, other (2+ LE pitting edema) Neurologic: AAOx3 Psychiatric: interacting appropriately ICD10 Worksheet Patient Problems: Problems Problem Status Onset Fatigue Acute Nonsustained ventricular tachycardia Acute Pleural effusion Acute Abnormal EKG Acute Anemia Acute Syncope Acute
--- NOTE | 2018-08-19 15:12 | ASMTCMCOM ---
CM Note CM Note Notes: 08/19/2018 Case Management Note Discussed pt during rounds. Faxed updates to [facility] requesting authorization. D/C date is unclear. Met w/family to inform of d/c plans and provide support. Case Management d/c poc: to be determined. Case Management to follow. Date Signed: 08/19/2018 03:12 PM Electronically Signed By:Sabrina Hamm RN
[2018-08-19] MEDS: NICOTINE 14 MG/24 HR PATCH TD SCH (18:40)
--- NOTE | 2018-08-19 19:16 | SOAPPROG ---
SOAP Progress Note Assessment/Plan: Assessment: 1. CURT - -Likely contrast nephrotoxicity after PCI of Cx artery -Cr improving, had been receiving IVF, now holding and giving albumin + diuretics 2. CKD 3 - -Due to HTN and vascular disease 3. Hem/onc - -Recent diagnosis of colon cancer S/P resection and primary reanastamosis -With lung and liver mets, possible mets to brain causing change in mental and functional status? -Onc following, may re-eval goals of care if not improving further, otherwise may give palliative chemo 4. HF - -Worsening appearance on CXR and clinically -U Na < 5 which could be from poor cardiac outpt -Now holding NS and started albumin/lasix -Even if some rise in Cr again will accept if it improves his clinical status overall -ABG pending 5. Hyponatremia - -Improving with diuresis, will continue Plan: 08/19/18 19:14 08/19/18 19:16 Subjective: Pt asking appropriate questions today. No complaints. Objective: Vital Signs Temp Pulse Resp BP Pulse Ox 36.3 C 89 14 97/57 L 94 08/19/18 16:00 08/19/18 18:40 08/19/18 16:00 08/19/18 18:40 08/19/18 16:00 Microbiology 08/18/18 13:35 Respiratory Panel (PCR) - Final Nasal, Sinus - Swab No Organism Detected By Pcr Laboratory Results 08/18/18 03:44 08/19/18 03:45 08/18/18 08/19/18 08/20/18 05:59 05:59 05:59 Intake Total 1788 1405 650 Output Total 450 600 750 Balance 1338 805 -100 PT 14.7 SEC (12.0-15.0) 08/11/18 18:00 INR 1.20 (0.83-1.16) H 08/11/18 18:00 Physical Exam - Physical Exam General Appearance: no apparent distress, other (still lethargic but much more coherent than yesterday) Respiratory: decreased breath sounds (bases) Cardiac/Chest: regular rate, rhythm Abdomen: soft Extremities: swelling ICD10 Worksheet Patient Problems: Problems Problem Status Onset Fatigue Acute Nonsustained ventricular tachycardia Acute Pleural effusion Acute Abnormal EKG Acute Anemia Acute Syncope Acute
[2018-08-19] MEDS: MELATONIN 3 MG TAB PO SCH (21:56)
[2018-08-19] MEDS: ATORVASTATIN CALCIUM 40 MG TAB PO SCH (21:56)
[2018-08-19] MEDS: GABAPENTIN 300 MG CAP PO SCH (21:56)
[2018-08-20] MEDS: ALBUMIN 25% 100 ML IV SCH ×3 (00:07→11:41)
[2018-08-20] MEDS: HEPARIN 5,000 UNIT/0.5 ML INJ SC SCH ×3 (05:06→22:37)
[2018-08-20] MEDS: PIPERACILLIN/TAZO 2.25 GM/DEX 50 ML IV SCH ×2 (05:06→13:22)
--- NOTE | 2018-08-20 08:52 | HOSPPROG ---
Hospitalist Progress Note Assessment/Plan: 73 yo M recently diagnosed with metastatic colon cancer and CAD admitted with chest pain and CURT #Metastatic colon cancer: Mets to liver, lung. S/p sigmoid resection with anastomosis. -pt asked for physician assisted suicide today, he realizes he needs to discuss his goals of care with his , who wants him to keep fighting -pt's primary goal today is better pain control #CURT on CKD (baseline Cr is 1.3) - FENa is c/w prerenal. Previous contrast study probably also playing a role. -Cr has improved with IVF's / albumin #CAD, chest pain: S/p 2 BMS to OM. -Continue aspirin, plavix, statin, beta sharon #Acute on chronic hypoxemia - on 2 LPM at baseline. CXR yest personally reviewed/interp- b/l effusions +/- consolidation - cont albumin / lasix - treating for possible HCAP / aspiration with Zosyn, day 3 - O2 requirement a bit improved today, down to 2 LPM from 3 LPM, defer thora for now #Systolic CHF 2/2 ICM: LVEF 35%. Has pitting edema, likely multifactorial. BNP was 17K on 08/16, up from 8K. - Cont albumin/lasix - Continue coreg, not on ACEi or MRA #Arteriotomy site bleeding: Resolved with fem-stop. #Dysphagia - cleared for diet by speech #Hyponatremia - improving #Anemia: cont iron #AAA: 5.7cm #COPD: No acute exacerbation. Albuterol prn #Peripheral edema: Most likely r/t hypoalbuminemia. Mgmt per above. #Deconditioning: PT/OT. He is very weak. #Malnutrition: albumin up from 1.8 with IV albumin -dietary consult to assess nutritional goals, pt would consider tube feeds, but then stated he wants physician assisted suicide VTE ppx: Heparin Code: full Goals of care: 30 minutes spent at bedside with patient, who very clearly articulated that he is "very close to calling off all of this". He feels he is not progressing and asked me to look into physician assisted suicide. I advised pt he needs to discuss this with his family. There is a disconnect. Later, I met with his son privately and advised his son that Ramsey needs permission from his family to proceed in the direction that he feels is best for him. Ramsey does not want to prolong a poor quality of life and feels his quality is very poor and does not feel hopeful that it will improved. Discussed this with CM. Asked for palliative support to return to bedside and assist with pt's decision making and help to get family on the same page. Subjective: Pt says abdominal pain is 6/10. Wants better pain control. Still has a deep cough. Some SOB. No CP. Poor appetite. Little oral intake. Objective: Vital Signs Temp Pulse Resp BP Pulse Ox 37.1 C 103 H 20 118/76 94 08/20/18 08:00 08/20/18 08:00 08/20/18 08:00 08/20/18 08:00 08/20/18 08:00 Laboratory Results 08/18/18 03:44 08/20/18 04:00 08/19/18 08/20/18 08/21/18 05:59 05:59 05:59 Intake Total 1405 1260 125 Output Total 600 1350 Balance 805 -90 125 PT 14.7 SEC (12.0-15.0) 08/11/18 18:00 INR 1.20 (0.83-1.16) H 08/11/18 18:00 - Physical Exam Constitutional: chronically ill appearing Eyes: PERRL Ears, Nose, Mouth, Throat: moist mucous membranes Cardiovascular: regular rate and rhythym Respiratory: no respiratory distress, reduced air movement, inspiratory crackles Gastrointestinal: normoactive bowel sounds, distension, other (mild diffuse TTP , no r/r/g) Skin: warm Musculoskeletal: full muscle strength Neurologic: AAOx3 Psychiatric: interacting appropriately ICD10 Worksheet Patient Problems: Problems Problem Status Onset Fatigue Acute Nonsustained ventricular tachycardia Acute Pleural effusion Acute Abnormal EKG Acute Anemia Acute Syncope Acute
[2018-08-20] MEDS: ASPIRIN 81 MG CHEWABLE TAB PO SCH (08:56)
[2018-08-20] MEDS: CARVEDILOL 3.125 MG TAB PO SCH ×2 (08:56→18:38)
[2018-08-20] MEDS: CLOPIDOGREL BISULFATE 75 MG TAB PO SCH (08:57)
[2018-08-20] MEDS: oxyCODONE IR 5 MG TAB PO PRN ×2 (08:57→15:34)
[2018-08-20] MEDS: ACETAMINOPHEN 325 MG TAB PO SCH ×3 (08:59→22:38)
[2018-08-20] MEDS: DOCUSATE SODIUM 100 MG CAP PO SCH ×2 (09:01→22:38)
[2018-08-20] MEDS: FERROUS SULFATE 325 MG TAB PO SCH ×2 (09:01→22:37)
[2018-08-20] MEDS: FAMOTIDINE 20 MG TAB PO SCH (09:01)
[2018-08-20] MEDS: CETIRIZINE 10 MG TAB PO SCH (09:01)
[2018-08-20] MEDS: [UNRECOGNIZED DRUG - OTHER] TP SCH ×3 (09:05→22:39)
[2018-08-20] MEDS: LIDOCAINE TP SCH ×3 (09:05→22:39)
--- NOTE | 2018-08-20 10:01 | PDCARPN ---
Cardiology Progress Note Chief Complaint: SOB Assessment/Plan: Assessment: CAD SOB active malignancy Plan: 08/20/18 09:58 Spoke in length with patient this AM Patient does not want any further invasive procedures and is considering withdrawing all therapy would like to speak to family first I have spoken with RN about patient wishes Continue current medical therapy, no indication for cath at this time Subjective: weak Reviewed/Discussed With: multidisciplinary team Time Spent with Patient: greater than 25 minutes Time Spent with Patient: Greater than 25 minutes spent on this patients care, greater than 50% of time spent counseling, educating, and coordinating care regarding the above mentioned plan. Objective: Vital Signs (8 Hrs) Temp Pulse Resp BP Pulse Ox 08/20/18 08:00 37.1 C 103 H 20 118/76 94 08/20/18 03:31 36.6 C 95 18 123/77 H 94 Intake/Output (24 Hrs) 08/19/18 08/20/18 08/21/18 05:59 05:59 05:59 Intake Total 1405 1260 125 Output Total 600 1350 Balance 805 -90 125 Intake: Oral (ml) 450 590 IV Intake (ml) 150 25 IV Infused (ml) 955 520 100 Albumin 25% 100 ml @ As 400 310 100 Directed IV Q6HRS ARLEEN Rx# :[id number] Ns 1,000 ml @ 50 mls/hr 300 IV CONT ARLEEN Rx#: [id number] Piperacillin/Tazo 2.25 gm 255 210 /Dex 50 ml @ 100 mls/hr IV Q6 ARLEEN Rx#:[id number] Output: Urine (ml) 600 1350 Catheter 600 1350 Other: Output Comment Incontinence leaking around catheter; replaced. getting ferrous sulfate Number of Voids Catheter 1 Incontinence 2 Number of Stools Incontinence 1 Result Diagrams: 08/18/18 03:44 08/20/18 04:00 - Physical Exam Constitutional: cachectic Eyes: PERRL Ears, Nose, Mouth, Throat: dry mucous membranes Cardiovascular: regular rate and rhythm Peripheral Pulses: 1+: femoral (R), femoral (L) Respiratory: no wheezes Gastrointestinal: normoactive bowel sounds Genitourinary: no suprapubic tenderness Skin: warm Musculoskeletal: no muscular tenderness Neurologic: AAOx3, CN II-XII grossly intact Psychiatric: cooperative ICD10 Worksheet Patient Problems: Problems Problem Status Onset Fatigue Acute Nonsustained ventricular tachycardia Acute Pleural effusion Acute Abnormal EKG Acute Anemia Acute Syncope Acute
--- NOTE | 2018-08-20 12:12 | SOAPPROG ---
[facility] Progress Note Assessment/Plan: Assessment: 1. Metastatic colorectal cancer 2. CAD 3. Acute on chronic renal insufficiency 4. Pleural effusions Plan: Goals of care being determined. Patient expresses some confusion about 'all the doctors" involved in his care. Emphasizes that Dr. Wiley is the doctor that will be best to help him with final decision making regarding goals of care. He is not wanting any further treatment right now, but wants to discuss with his before any final decisions have been made. Hospice is appropriate if he has decided he does not want any further therapy. Whether or not he would even improve to the point of benefiting from palliative treatment, in the event his performance status improved, is unclear. 08/20/18 12:12 08/20/18 12:13 Subjective: Wants to talk with his . Wants Dr. Wiley to be the main point of contact regarding any decision making on goals of care. Objective: Vital Signs Temp Pulse Resp BP Pulse Ox 36.2 C 99 13 100/65 93 08/20/18 11:16 08/20/18 11:16 08/20/18 11:16 08/20/18 11:16 08/20/18 11:16 Laboratory Results 08/18/18 03:44 08/20/18 04:00 08/19/18 08/20/18 08/21/18 05:59 05:59 05:59 Intake Total 1405 1260 125 Output Total 600 1350 Balance 805 -90 125 PT 14.7 SEC (12.0-15.0) 08/11/18 18:00 INR 1.20 (0.83-1.16) H 08/11/18 18:00 Physical Exam - Physical Exam General Appearance: no apparent distress Respiratory: other (decreased breath sounds) Abdomen: soft ICD10 Worksheet Patient Problems: Problems Problem Status Onset Fatigue Acute Nonsustained ventricular tachycardia Acute Pleural effusion Acute Abnormal EKG Acute Anemia Acute Syncope Acute
[2018-08-20] MEDS: FUROSEMIDE 20 MG/2 ML VIAL IVP SCH (13:21)
--- NOTE | 2018-08-20 14:50 | SOAPPROG ---
SOAP Progress Note Assessment/Plan: Assessment/Plan: 73 y/o M with h/o CKD with stage IV colong CA and CURT likely 2/ 2 to cardiorenal syndrome vs ELLY. 1. CURT on CKD III -Cr down to 1.6 -hold fluids and monitor UO -considering hospice, palliative following -keep MAP>65 (albumin prn) and discussing feeding tube -continue to monitor 2. Hem/onc - -Recent diagnosis of colon cancer S/P resection and primary reanastamosis -With lung and liver mets -Onc following, appreciated 3. Hyponatremia -likely 2/2 to cardiac issues and volume overload in the setting of HF= -Improving with diuresis, will continue Will sign off, please contact if ?'s. 08/20/18 14:47 Subjective: Patient considering more palliative options with hospitalist today. Making good UO. Objective: Vital Signs Temp Pulse Resp BP Pulse Ox 36.2 C 99 13 100/65 93 08/20/18 11:16 08/20/18 11:16 08/20/18 11:16 08/20/18 11:16 08/20/18 11:16 Laboratory Results 08/18/18 03:44 08/20/18 04:00 08/19/18 08/20/18 08/21/18 05:59 05:59 05:59 Intake Total 1405 1260 725 Output Total 600 1350 Balance 805 -90 725 PT 14.7 SEC (12.0-15.0) 08/11/18 18:00 INR 1.20 (0.83-1.16) H 08/11/18 18:00 Physical Exam - Physical Exam General Appearance: WD/WN, alert EENT: PERRL/EOMI Neck: non-tender, full range of motion, supple Respiratory: chest non-tender, decreased breath sounds Cardiac/Chest: regular rate, rhythm, edema Abdomen: normal bowel sounds, non-tender Skin: pallor Extremities: normal range of motion, non-tender Neuro/Psych: depressed affect ICD10 Worksheet Patient Problems: Problems Problem Status Onset Fatigue Acute Nonsustained ventricular tachycardia Acute Pleural effusion Acute Abnormal EKG Acute Anemia Acute Syncope Acute
--- NOTE | 2018-08-20 16:00 | ASMTCMCOM ---
CM Note CM Note Notes: Pts case discussed in tx rounds. Pt has vocalize to Dr. Wiley that he is interested in physician assisted suicide. Chandra will arrange a palliative conference to discuss goals of care. Needs are TBD at this time. CM updated Angie at [facility] of this. CM to follow. Plan: TBD Date Signed: 08/20/2018 03:09 PM Electronically Signed By:BRUCE Romano
[2018-08-20] MEDS: NICOTINE 14 MG/24 HR PATCH TD SCH (18:38)
[2018-08-20] MEDS: PIPERACILLIN/TAZO 3.375 GM/DEX 50 ML IV SCH ×2 (18:38→23:33)
[2018-08-20] MEDS: SENNOSIDES 17.6 MG/10 ML UDL PO PRN (22:29)
[2018-08-20] MEDS: MELATONIN 3 MG TAB PO SCH (22:38)
[2018-08-20] MEDS: ATORVASTATIN CALCIUM 40 MG TAB PO SCH (22:38)
[2018-08-20] MEDS: GABAPENTIN 300 MG CAP PO SCH (22:39)
[2018-08-21] MEDS: oxyCODONE IR 5 MG TAB PO PRN (02:18)
[2018-08-21] MEDS: HEPARIN 5,000 UNIT/0.5 ML INJ SC SCH ×2 (05:16→14:49)
[2018-08-21] MEDS: PIPERACILLIN/TAZO 3.375 GM/DEX 50 ML IV SCH (05:16)
--- NOTE | 2018-08-21 07:41 | PDCARPN ---
Cardiology Progress Note Chief Complaint: SOB Assessment/Plan: Assessment: CAD SOB active malignancy Plan: 08/20/18 09:58 Spoke in length with patient this AM Patient does not want any further invasive procedures and is considering withdrawing all therapy would like to speak to family first I have spoken with RN about patient wishes Continue current medical therapy, no indication for cath at this time 08/21/18 07:39 Stable CV status patient again wants conservative tx Waiting to discuss with Will continue current tx, no plans for invasive procedures will follow as needed, please call with any questions Subjective: stable but weak Reviewed/Discussed With: multidisciplinary team Time Spent with Patient: greater than 25 minutes Time Spent with Patient: Greater than 25 minutes spent on this patients care, greater than 50% of time spent counseling, educating, and coordinating care regarding the above mentioned plan. Objective: Vital Signs (8 Hrs) Temp Pulse Resp BP Pulse Ox 08/21/18 04:00 36.7 C 96 9 L 107/65 95 08/20/18 23:56 36.8 C 85 10 L 89/53 L 93 Intake/Output (24 Hrs) 08/20/18 08/21/18 08/22/18 05:59 05:59 05:59 Intake Total 1260 1072 Output Total 1350 875 Balance -90 197 Intake: Oral (ml) 590 600 IV Intake (ml) 150 120 IV Infused (ml) 520 352 Albumin 25% 100 ml @ As 100 Directed IV DAILY ARLEEN Rx# :[id number] Albumin 25% 100 ml @ As 310 100 Directed IV Q6HRS ARLEEN Rx# :[id number] Piperacillin/Tazo 2.25 gm 210 52 /Dex 50 ml @ 100 mls/hr IV Q6 ALREEN Rx#:[id number] Piperacillin/Tazo 3.375 100 gm/Dex 50 ml @ 100 mls/hr IV Q6 ARLEEN Rx#:[id number] Output: Urine (ml) 1350 875 Catheter 1350 875 Other: Number of Stools Incontinence 1 Result Diagrams: 08/18/18 03:44 08/21/18 04:28 - Physical Exam Constitutional: no apparent distress Eyes: PERRL Ears, Nose, Mouth, Throat: dry mucous membranes Cardiovascular: regular rate and rhythm Peripheral Pulses: 1+: femoral (R), femoral (L) Respiratory: no wheezes Gastrointestinal: normoactive bowel sounds Genitourinary: no suprapubic tenderness Skin: no rashes Musculoskeletal: no muscular tenderness Neurologic: AAOx3 Psychiatric: cooperative ICD10 Worksheet Patient Problems: Problems Problem Status Onset Fatigue Acute Nonsustained ventricular tachycardia Acute Pleural effusion Acute Abnormal EKG Acute Anemia Acute Syncope Acute
[2018-08-21] MEDS: [UNRECOGNIZED DRUG - OTHER] TP SCH ×3 (08:25→21:42)
[2018-08-21] MEDS: LIDOCAINE TP SCH ×3 (08:25→21:42)
[2018-08-21] MEDS: ALBUMIN 25% 100 ML IV SCH (08:32)
[2018-08-21] MEDS: ACETAMINOPHEN 325 MG TAB PO SCH ×4 (08:46→21:56)
[2018-08-21] MEDS: CARVEDILOL 3.125 MG TAB PO SCH ×2 (08:47→18:10)
[2018-08-21] MEDS: DOCUSATE SODIUM 100 MG CAP PO SCH ×2 (09:55→21:42)
[2018-08-21] MEDS: FERROUS SULFATE 325 MG TAB PO SCH ×2 (09:55→21:41)
[2018-08-21] MEDS: FUROSEMIDE 20 MG/2 ML VIAL IVP SCH (09:56)
[2018-08-21] MEDS: ASPIRIN 81 MG CHEWABLE TAB PO SCH (11:15)
[2018-08-21] MEDS: CETIRIZINE 10 MG TAB PO SCH (11:15)
[2018-08-21] MEDS: CLOPIDOGREL BISULFATE 75 MG TAB PO SCH (11:15)
[2018-08-21] MEDS: morphINE 10 MG/0.5 ML UDSYR PO PRN ×3 (11:16→23:46)
--- NOTE | 2018-08-21 15:26 | HOSPPROG ---
Hospitalist Progress Note Assessment/Plan: 73 yo M recently diagnosed with metastatic colon cancer s/p resection and CAD s/ p LCX stent admitted with chest pain and CURT, condition has deteriorated and he now clearly states he wants hospice and medication assistance in dying program. #Metastatic colon cancer: Mets to liver, lung. S/p sigmoid resection with anastomosis. Per onc, dz is incurable and currently not a candidate for palliative chemo given very poor performance status. -pt wants hospice and MAiD (medication assistance in dying) -pain control, add Roxanol #CURT on CKD (baseline Cr is 1.3) - FENa c/w prerenal. Previous contrast also noted. -Cr has improved with albumin / lasix #CAD, chest pain: S/p 2 BMS to OM. -Continue aspirin, plavix, statin, beta sharon #Acute on chronic hypoxemia - on 2 LPM at baseline. Recent CXR with b/l effusions (suspect malignant) +/- consolidation - has received several days of albumin/lasix - was treated with IV Zosyn for possible PNA, d/c'd today as pt opting for hospice and MAiD #Systolic HF 2/2 ICM: LVEF 35%. Pitting edema, likely multifactorial noting hypoalbuminemia. - S/P Albumin/Lasix - Continue coreg, could likely d/c this once he enrolls with hospice #Arteriotomy site bleeding: Resolved with fem-stop. #Dysphagia - cleared for diet by speech #Hyponatremia - improved #Anemia: on iron #AAA: 5.7cm #COPD: No acute exacerbation. Albuterol prn #Peripheral edema: Most likely r/t hypoalbuminemia. Mgmt per above. #Deconditioning: PT/OT. He is very weak. #Malnutrition: pt did not want to consider feeding tube today, focused on hospice/MAiD VTE ppx: Heparin Code: full Goals of care: 30 minutes spent at bedside with patient, Linnette and sons Ashish and Jorge. Pt clearly states he wishes to proceed with hospice and MAiD. Family now supportive of pt's wishes, though had previously wanted him to keep fighting. CM and hospice are working on disposition. Family not sure they can afford room and board for hospice care at SNF. Apparently MAiD can take several weeks to arrange and he needs to be enrolled in hospice first. They aren't comfortable with home hospice and he is not currently a candidate for inpatient hospice. Subjective: Pt c/o 6-810 pain in his RUQ. He firmly tells me to "make some calls" to get him to the end stages, wants medication assistance in dying and wants it now. He is open to hospice. He does not want to suffer any longer and feels "this is no way to live". Objective: Vital Signs Temp Pulse Resp BP Pulse Ox 37.1 C 96 24 H 127/82 H 94 08/21/18 07:59 08/21/18 07:59 08/21/18 07:59 08/21/18 07:59 08/21/18 07:59 Laboratory Results 08/18/18 03:44 08/21/18 04:28 08/20/18 08/21/18 08/22/18 05:59 05:59 05:59 Intake Total 1260 1072 Output Total 1350 875 Balance -90 197 PT 14.7 SEC (12.0-15.0) 08/11/18 18:00 INR 1.20 (0.83-1.16) H 08/11/18 18:00 - Physical Exam Constitutional: chronically ill appearing Eyes: PERRL Ears, Nose, Mouth, Throat: moist mucous membranes Cardiovascular: regular rate and rhythym Respiratory: no respiratory distress, reduced air movement, inspiratory crackles Gastrointestinal: other (soft, mild distention, RUQ TTP, no r/r/g, +BS) Skin: warm Musculoskeletal: other (2+ b/l LE pitting edema) Neurologic: AAOx3 Psychiatric: interacting appropriately ICD10 Worksheet Patient Problems: Problems Problem Status Onset Fatigue Acute Nonsustained ventricular tachycardia Acute Pleural effusion Acute Abnormal EKG Acute Anemia Acute Syncope Acute
--- NOTE | 2018-08-21 16:11 | ASMTCMCOM ---
CM Note CM Note Notes: Pts case discussed in tx rounds. Pt once again vocalized that he doesn't want to continue living and he is interested in MAID. Family is interested in getting him into a inpatient hospice care center. Referral made to [facility]. Leigh from [facility] came and evaluated pt. Pt does not meet criteria for inpatient hospice care center. CM informed family that if pt were to go to a SNF, they would need to pay for room and board since pt does not qualify for GIP at SNF. Family will discuss home w/ hospice vs SNF w/ hospice. Pts code status has been changed to DNR. CM provided pts Linnette w/ phone number for [facility] primary care physicians. Pt currently does not have a PCP. CM informed Linnette that the process takes about a month. CM applied for the [employer] for pt. Family is uncertain how they will pay for SNF at hospice. At this time, family does not feel comfortable caring for pt at home or have the financial ability to pay for private duty caregivers. CM to follow. Plan: TBD Date Signed: 08/21/2018 04:11 PM Electronically Signed By:BRUCE Romano
[2018-08-21] MEDS: NICOTINE 14 MG/24 HR PATCH TD SCH (18:10)
[2018-08-21] MEDS: GABAPENTIN 300 MG CAP PO SCH (21:41)
[2018-08-21] MEDS: MELATONIN 3 MG TAB PO SCH (21:41)
[2018-08-22] MEDS: morphINE 10 MG/0.5 ML UDSYR PO PRN ×3 (03:09→14:27)
--- NOTE | 2018-08-22 03:14 | HOSPPROG ---
Hospitalist Progress Note Assessment/Plan: XC: Notified by RN that patient has become more vocal about his wish to . He wrapped his O2 cord around his neck in a suicide attempt. As a result of this I will transfer patient to the ICU so he can have one on one supervision. Objective: Vital Signs Temp Pulse Resp BP Pulse Ox 36.5 C 92 8 L 102/67 97 08/21/18 23:34 08/21/18 23:34 08/21/18 23:34 08/21/18 19:44 08/21/18 23:34 Laboratory Results 08/18/18 03:44 08/21/18 04:28 08/20/18 08/21/18 08/22/18 05:59 05:59 05:59 Intake Total 1260 1072 465 Output Total 1350 875 600 Balance -90 197 -135 PT 14.7 SEC (12.0-15.0) 08/11/18 18:00 INR 1.20 (0.83-1.16) H 08/11/18 18:00 ICD10 Worksheet Patient Problems: Problems Problem Status Onset Syncope Acute Anemia Acute Abnormal EKG Acute Fatigue Acute Pleural effusion Acute Nonsustained ventricular tachycardia Acute
[2018-08-22] MEDS ORDERED: LORazepam 2 MG/ML INJ IVP PRN (04:49)
[2018-08-22] MEDS: CETIRIZINE 10 MG TAB PO SCH (08:01)
[2018-08-22] MEDS: CLOPIDOGREL BISULFATE 75 MG TAB PO SCH (08:01)
[2018-08-22] MEDS: FERROUS SULFATE 325 MG TAB PO SCH (08:01)
[2018-08-22] MEDS: ASPIRIN 81 MG CHEWABLE TAB PO SCH (08:01)
[2018-08-22] MEDS: CARVEDILOL 3.125 MG TAB PO SCH (08:01)
[2018-08-22] MEDS: DOCUSATE SODIUM 100 MG CAP PO SCH (08:01)
[2018-08-22] MEDS: FAMOTIDINE 20 MG TAB PO SCH (08:01)
[2018-08-22] MEDS: ACETAMINOPHEN 325 MG TAB PO SCH (08:01)
[2018-08-22] MEDS: LIDOCAINE TP SCH (08:02)
[2018-08-22] MEDS: [UNRECOGNIZED DRUG - OTHER] TP SCH (08:02)
[2018-08-22 12:03] VITALS: BP 106/66
--- NOTE | 2018-08-22 12:30 | HOSPPROG ---
Hospitalist Progress Note Assessment/Plan: DIAGNOSES: * patient desiring end of life care, medically assisted * Stage IV colon cancer * Coronary artery disease status post stent placement * Failure to thrive * Ongoing abdominal pain related to his cancer and cancer surgery * Severe weakness and deconditioning * Acute hypoxemic respiratory failure, dyspnea * acute kidney injury * Bleeding at arteriotomy site, resolved with them. * Hyponatremia * AAA 5.7 cm, not a candidate for percutaneous management * Iron deficiency anemia * Protein calorie Malnutrition moderately severe PLANS: * He has been seen by hospice today to consider transfer to the [facility] hospice inpatient Center as a possibility * Continue comfort measures here * I have discontinued some unnecessary nursing and other orders SUBJECTIVE: Patient currently sleeping after receiving some pain medication Has continued to have right-sided abdominal pain and back pain Very poor appetite night eating, some nausea intermittently Family is at the bedside. They are doing their best to contend with the situation but her struggling a bit OBJECTIVE Vitals reviewed: Intermittently his slightly slow respiratory rate during sleep , otherwise stable without fever Health Aid, my review: Sinus Exam: Sleeping but arouses to alert oriented skin warm dry color ok resps not labored lungs clear BSs heart regular abd soft some tenderness, nondistended limbs warm, no edema iv site ok Stable metabolic panel, creatinine 1.6 Objective: Vital Signs Temp Pulse Resp BP Pulse Ox 37.2 C 96 9 L 106/66 97 08/22/18 12:00 08/22/18 12:00 08/22/18 12:00 08/22/18 12:00 08/22/18 12:00 Laboratory Results 08/18/18 03:44 08/22/18 03:46 08/21/18 08/22/18 08/23/18 06:59 06:59 06:59 Intake Total 1072 465 Output Total 875 1035 Balance 197 -570 PT 14.7 SEC (12.0-15.0) 08/11/18 18:00 INR 1.20 (0.83-1.16) H 08/11/18 18:00 ICD10 Worksheet Patient Problems: Problems Problem Status Onset Fatigue Acute Nonsustained ventricular tachycardia Acute Pleural effusion Acute Abnormal EKG Acute Anemia Acute Syncope Acute
--- NOTE | 2018-08-22 13:57 | PDIAF ---
- Diagnosis Diagnosis: Stage IV colon cancer, coronary disease, malnutrition, failure to thrive Code Status: Do Not Resuscitate - Medication Management Discharge Medications: electronically signed and located in the Home Medication List. - Orders Services needed: Registered Nurse, Certified Director Financial Planning Isolation Type: None Diet Recommendation: no restrictions on diet Diet Texture: Regular Texture Diet, Thin Liquids, Meds Whole w/Liquids - Follow Up Care Current Providers and Referrals: Patient,NotPresent [Unknown] - As per Instructions
--- NOTE | 2018-08-22 14:01 | PDDCSUM ---
Discharge Summary Discharge Summary: DISCHARGE DIAGNOSES: * Metastatic colon cancer * Pain of metastatic cancer * Acute kidney injury * Coronary artery disease status post stent * Bleeding at arteriotomy for coronary angiography with placement of family. * Acute hypoxemic respiratory failure * Systolic heart failure * Dysphagia hyponatremia * Severe iron deficiency anemia * Abdominal aortic aneurysm 5.7 cm * COPD * Protein calorie malnutrition moderately severe CONSULTANTS: Doctors Miki Quiñones and Miki Arana PROCEDURES: Coronary angiography with stent to circumflex Abdominal ultrasound HOSPITAL COURSE SUMMARY: This patient had recently been at this hospital where he presented with severe anemia and angina. He has found at that time to have a metastatic colon cancer with iron deficiency anemia as well as severe coronary disease. At that point it was elected to perform surgery for his bowel disease in come back later to treat his heart. He was taken to the operating room where he had colon resection but this was complicated by a peritonitis any required a 2nd surgery and had a rough hospital course that was very prolonged. He was extremely weak and. Is discharge to home but came back at this time with angina. At that point was elected to ahead with coronary angiography and he had placement of a circumflex artery stent,. There was a minor complication of some arteriotomy bleeding that was easily managed with a fem stop. However following this the patient remains extremely weak, with very poor appetite, and pain from his metastatic cancer. After 10 days of hospitalization he was not making any real progress in terms of mobility, nutrition, strength, and became do more lies. He made several requests for us to arrange for him to have consultation for a medically assisted . We had palliative care discussion and was very clear that the patient was consistent that he did not wanting ongoing medical care that would try to treat his cancer and wanted a palliative approach. On the evening of August 21 the patient became distraught and took some IV tubing wrapped around his neck and attempted to choke himself with the IV tubing. At that point he was transferred to the intensive care unit for careful watching in further assessments were made in it was clear that he was wishing to move on with palliative care and again to consider medically assisted . A local hospice group was consulted and they met with the patient and agreed to take him into their inpatient care center today and he is being transferred at this time to the care center at [facility]. His family has been at the bedside with him throughout this whole ordeal and they have been very involved in the discussions regarding care decisions. PENDING TEST RESULTS: None MEDICATION CHANGES: Addition of p.r.n. Roxanol and Ativan for pain anxiety FOLLOW-UP PLAN: His transfer today to the inpatient care center at [facility] hospice Greater than 35 minutes bedside and care coordination time today
--- NOTE | 2018-08-22 14:33 | ASMTDCNOTE ---
Case Management Discharge Discharge Order Complete? Answers: Yes Patient to Obtain Answers: Other Notes: [facility] Medications Transportation Arranged Answers: Other Notes: arranged by Damaris wilson [facility] Transport will Pick (Date 08/22/2018 12:00 AM & Time) Case Management Transport Answers: Yes Notes: PCS form for [employer] Form Complete Faxed Final Orders Answers: Yes Notes: [facility] Agency/Facility Transfer Answers: Yes Notes: [facility] Report Printed & Faxed to Receiving Agency Family Notified Answers: Yes Notes: Linnette Discharge Comments Notes: Patient is discharging to [facility]patient Center today. Transport was arranged with [place] by Damaris from [facility] for 2:45PM today. Damaris's number is [phone]. Linnette has been at patient's bedside. Discharge summaries have been forwarded to [facility] by [employer]. No further needs. Date Signed: 08/22/2018 02:32 PM Electronically Signed By:Lorene Richards LCSW
--- NOTE | 2018-08-22 15:05 | ASMTLACE ---
LACE Length of stay for Answers: 7-13 days current admission Acuity / Level of Answers: Yes Care: Did the patient have an inpatient admission? Comorbidities - select Answers: Any tumor (including all that apply lymphoma or leukemia) Coronary Artery Disease # of Emergency department Answers: 1-2 visits in the last 6 months Score: 13 Date Signed: 08/22/2018 03:04 PM Electronically Signed By:Lorene Richards LCSW
--- NOTE | 2018-08-22 15:15 | ASDISCHSUM ---
Discharge Information Plan Status:SNF Medically Cleared to Leave:08/22/2018 Discharge Date:08/22/2018 02:25 PM D/C Disposition:Hospice Facility ADT D/C Disposition:Hospice Facility Projected Discharge Date:08/22/2018 11:00 AM Transportation at D/C:Other Discharge Delay Reason: Follow-Up Date:08/22/2018 11:00 AM Discharge Slot:2 - 12:01 pm - 18:00 pm Final Diagnosis:Stage 4 cancer Placement Information Referral Type:*Detention/SNF Referral ID:[id number] Provider Name: Address 1: Phone Number: Address 2: Fax Number: City: Selection Factors: State: Referral Type:*Hospice Referral ID:[id number] Provider Name:[facility] Address 1:[address] Address 2: City:[place] Selection Factors: State:[place] Patient Contact Information Contact Name:NANCYSPRAGUE Relationship: Address:[address] Work Phone: City:[facility] Phone: [facility]/Zip Code:[place] [address] Email: Financial Information Financial Class:BCOP [facility] Desc[facility] Primary Plan Number:[id number] Secondary Plan Desc:MEDICARE INPATIENT Secondary Plan Number:[id number] Assessment Information LACE LACE Length of stay for Answers: 7-13 days current admission Acuity / Level of Answers: Yes Care: Did the patient have an inpatient admission? Comorbidities - select Answers: Any tumor (including all that apply lymphoma or leukemia) Coronary Artery Disease # of Emergency department Answers: 1-2 visits in the last 6 months Score: 13 Date Signed: 08/22/2018 03:04 PM Electronically Signed By:Lorene Richards LCSW [facility] Initial CM Assessment Living Arrangements What is your living Answers: With Spouse arrangement? Who do you live with? Type Of Residence What kind of residence do Answers: House you live in? Discharge Plan Comments Coordination Status Comments Notes: Patient is a 73yo male who has hx of CAD and recently was diagnosed with metastatic colon cancer. He comes to [facility] with weakness and chest pressure and has been admitted for ischemic cardiomyopathy, hyponatremia, metastatic colon cancer,edema, and probable chronic obstructive pulmonary disease. PT/OT evals have been ordered. D/C plan TBD. CM will follow. Date Signed: 08/12/2018 10:18 AM Electronically Signed By:Lorene Richards LCSW [facility] CM Progress Note CM Note CM Note Notes: Pts case discussed in tx rounds. Pt will return back to [facility] once medically stable. Therapies are recommending SNF. Updates sent to [facility]. [facility] report that they will need to get auth prior to discharging back to their facility. CM to follow. Plan: [facility] Date Signed: 08/14/2018 02:45 PM Electronically Signed By:BRUCE Romano [facility] CM Progress Note CM Note CM Note Notes: 08/17/2018 Case Management Note Discussed pt during rounds this morning. and family member present. Pt seen by Flaquito VAZQUEZ yesterday (08/16/2018). Please see notes for details. Outpatient palliative is not covered by insurance plan. Faxed updates to [facility]. Requested authorization. [place] paperwork returned to . Case Management d/c poc: [facility]. Case Management to follow. Date Signed: 08/17/2018 12:05 PM Electronically Signed By:Sabrina Hamm RN [facility] Progress Note CM Note CM Note Notes: 08/19/2018 Case Management Note Discussed pt during rounds. Faxed updates to [facility] requesting authorization. D/C date is unclear. Met w/family to inform of d/c plans and provide support. Case Management d/c poc: to be determined. Case Management to follow. Date Signed: 08/19/2018 03:12 PM Electronically Signed By:Sabrina Hamm RN [facility] Progress Note CM Note CM Note Notes: Pts case discussed in tx rounds. Pt has vocalize to Dr. Wiley that he is interested in physician assisted suicide. Chandra will arrange a palliative conference to discuss goals of care. Needs are TBD at this time. CM updated Angie at [facility] of this. CM to follow. Plan: TBD Date Signed: 08/20/2018 03:09 PM Electronically Signed By:BRUCE Romano [facility] CM Progress Note CM Note CM Note Notes: Pts case discussed in tx rounds. Pt once again vocalized that he doesn't want to continue living and he is interested in [facility]. Family is interested in getting him into a inpatient hospice care center. Referral made to [facility]. Leigh from [facility] came and evaluated pt. Pt does not meet criteria for inpatient hospice care center. CM informed family that if pt were to go to a SNF, they would need to pay for room and board since pt does not qualify for GIP at SNF. Family will discuss home w/ hospice vs SNF w/ hospice. Pts code status has been changed to DNR. CM provided pts Linnette w/ phone number for [facility] primary care physicians. Pt currently does not have a PCP. CM informed Linnette that the process takes about a month. CM applied for the [employer] for pt. Family is uncertain how they will pay for SNF at hospice. At this time, family does not feel comfortable caring for pt at home or have the financial ability to pay for private duty caregivers. CM to follow. Plan: TBD Date Signed: 08/21/2018 04:11 PM Electronically Signed By:BRUCE Romano Case Management Discharge Plan Note Case Management Discharge Discharge Order Complete? Answers: Yes Patient to Obtain Answers: Other Notes: [facility] Medications Transportation Arranged Answers: Other Notes: arranged by Damaris wilson [facility] Transport will Pick (Date 08/22/2018 12:00 AM & Time) Case Management Transport Answers: Yes Notes: PCS form for [employer] Form Complete Faxed Final Orders Answers: Yes Notes: [facility] Agency/Facility Transfer Answers: Yes Notes: [facility] Report Printed & Faxed to Receiving Agency Family Notified Answers: Yes Notes: Linnette benedict Discharge Comments Notes: Patient is discharging to [facility] today. Transport was arranged with [place] by Damaris from [facility] for 2:45PM today. Damaris's number is [phone]. Linnette Benedict has been at patient's bedside. Discharge summaries have been forwarded to [email or web address] No further needs. Date Signed: 08/22/2018 02:32 PM Electronically Signed By:Lorene Richards LCSW Intervention Information
[2018-08-22] MEDS ORDERED: FUROSEMIDE 20 MG/2 ML VIAL IVP PRN (15:28)
== END 2018-08-22 14:25 | disposition hospice, home (50) | DRG 246 ==
LOC: EDUNIT# → F2W 13:20 → F2N 08-22 04:20
PROVIDERS: ADMIT Internal Medicine; ATTEND Internal Medicine
PROC: 027035Z Dilation of Coronary Artery, One Artery with Two Drug-eluting Intraluminal Devices, Percutaneous Approach (ICD-10-PCS; principal; 2018-08-12 11:43)
DX: I25.118 Atherosclerotic heart disease of native coronary artery with other forms of angina pectoris (principal); J96.01 Acute respiratory failure with hypoxia; E43 Unspecified severe protein-calorie malnutrition; C18.9 Malignant neoplasm of colon, unspecified; C78.7 Secondary malignant neoplasm of liver and intrahepatic bile duct; N17.9 Acute kidney failure, unspecified; E87.1 Hypo-osmolality and hyponatremia; I13.0 Hypertensive heart and chronic kidney disease with heart failure and stage 1 through stage 4 chronic kidney disease, or unspecified chronic kidney disease; I50.22 Chronic systolic (congestive) heart failure; N18.3 Chronic kidney disease, stage 3 (moderate); I25.5 Ischemic cardiomyopathy; J44.9 Chronic obstructive pulmonary disease, unspecified; G89.3 Neoplasm related pain (acute) (chronic); D50.9 Iron deficiency anemia, unspecified; R13.10 Dysphagia, unspecified; I71.4 Abdominal aortic aneurysm, without rupture
CPT/HCPCS: 84484-ER; 92526-GN; 92610-GN; 97110-GP; 97162-GP; 97165-GO; 97530-GO; 97530-GP; 97535-GO; C1725; C1760; C1769; C1876; C1887; C9607; J0583; J1644; J1940; J2250; J2270; J2543; J3010; P9047; Q9967